=== PATIENT | female | born 1950 | race Caucasian/White ===

== ENCOUNTER 2025-02-10 11:03 | Outpatient (AMB) | payer MEDICARE, SELFPAY ==
[2025-02-10 11:16] VITALS: BP 120/80; PULSE 97; RESP 16; O2SAT 93; BMI 46.6
--- NOTE | 2025-02-10 11:16 | A.OFFVIS_ITS ---
Vital Signs 02/10/25 11:16 Height 5 ft 3 in Weight 263 lb BMI 46.6 BP 120/80 Blood Pressure Location Lt radial Position Sitting Respiration 16 Pulse 97 Pulse Source Pulse Oximeter Pulse Oximetry (%) 93 Oxygen Delivery Method Room Air Intake Visit Reasons: Rt knee pain radiating up to lower back Customer Support Associate Required: No Allergies epinephrine Allergy (Severe, Verified 02/10/25 11:19) Anaphylaxis bisacodyl [From Bisa-Lax (bisacodyl)] Adverse Reaction (Severe, Verified 02/10/25 11:19) cramps Medication List - Last Reconciled 02/10/25 by Josie Ibarra LPN alprazolam 0.5 mg PO TID cholecalciferol (vitamin D3) 1,250 mcg PO QWEEK gabapentin 100 mg PO .4x daily semaglutide (Rybelsus) 1.5 mg PO DAILY tranylcypromine (Parnate) 30 mg PO BID vitamins A,C,F-npax-bezmis 4,296 mcg-226 mg-90 mg (PreserVision AREDS) 1 cap PO BID HPI HPI Rt knee pain radiating up to lower back: Details: History of Present Illness The patient is a 74-year-old female presenting with pain management issues. 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 Subsequently, chronic pain ensued and spread from her right knee down the leg towards the foot. The pain encompassed the entirety of the limb and eventually the opposite side. A neurologist has confirmed nondiagnostic nerve damage in the right leg via EMG studies. The lower back pain began to manifest more prominently within the past year, persisting despite various interventional treatments such as epidural injections targeting the L5 nerve root's suspected compression. The inadequate response to these procedures has contributed to the progressive and debilitating nature of the patient's condition, as it has evolved into globalized pain in the axial low back. Over the years, such chronic pain has drastically diminished the patient's ability to engage in everyday pursuits. Pain Description - Onset and Timing: Began before a 2019 knee replacement; worsened over seven years - Quality and Character: Described as continuous, like a solid block of pain, with numbness and sensitivity - Primary Location: Initially the right knee; extended down the right leg and foot; spread to the right gluteal region and lower back - Areas of Radiation: Progressed across the right side and into the opposite extremity - Exacerbating Factors: Physical activity and leg contact - Relieving Factors: Not clearly verbalized; unresponsive to prior injection t herapies - Interference: Significantly affects daily living, standing, walking, and general mobility Physical Exam - Musculoskeletal- Mild swelling of the right lower extremity and slight purplish discoloration observed; sensitivity to touch present, with numbness and altered sensation in medial condylar region - Neurologic- Anesthesia sensation in medial condylar region; altered sensation across the lower extremities - Limited lumbar ROM Results - Tests and Diagnostics: L5 nerve root compression suspected on MRI; multiple nondiagnostic EMG studies of the right leg Pain Management - Affect: Reports of crying, frustration, and isolation due to continuous pain, impacting daily mood - Analgesia: Prior interventions ineffective; no current successful analgesia regimen noted - Adverse Effects: Previous injection therapies were ineffective; current medications or side effects not detailed - Activities of Daily Living: Severely impacted; patient unable to walk properly, engage with friends, or partake in previous activities - Aberrant Drug Related Behaviors: Not specified in this encounter Physical Exam Vital Signs: Last Vital Signs Pulse 97 02/10/25 11:16 Resp 16 02/10/25 11:16 BP 120/80 02/10/25 11:16 Pulse Ox 93 02/10/25 11:16 Oxygen Delivery Method Room Air 02/10/25 11:16 BMI result Body Mass Index 46.6 Assessment & Plan Assessment & Plan (1) Lumbar spondylosis: Code(s): M47.816 - Spondylosis without myelopathy or radiculopathy, lumbar region Category: Medical (2) CRPS (complex regional pain syndrome type I): Code(s): G90.50 - Complex regional pain syndrome I, unspecified Category: Medical Plan Plan - Arrange L3, L4, L5 medial branch diagnostic blocks bilaterally, targeting the back pain associated with lumbar spondylosis. - Upon positive response to dianostic blocks, plan for radiofrequency ablation. - Potential discussion of lumbar sympathetic block contingent upon evaluation outcomes and insurance approval. - Seek insurance clearance for the diagnostic interventions discussed. - Reassess efficacy of nerve blocks prior to moving forward with other potential treatments. Patient was informed and verbally consented to the use of an ambient scribe for clinic note documentation during this visit. Discussion Notes I discussed in detail with the patient the likelihood of lumbar spondylosis and potential lumbar root involvement as contributing factors to the chronic pain experienced. We reviewed diagnostic options including the first- and second- round test injections, followed by radiofrequency ablation, which may alleviate axial lumbar pain. I stressed that no definitive treatment has been established and that these strategies provide potential relief but not a guaranteed solution. Specific risks and benefits were deliberated, with a focus on targeted lumbar neuroanatomy and individualized outcomes. Patient consent was obtained for the initial diagnostic approach, and we outlined potential sequential procedures pending diagnostic outcomes. Emphasis was placed on maintaining communication for insurance process completion and any subsequent appointments necessary. Patient Instructions - Attend scheduled appointments for test injections on the back. - Monitor pain levels and any changes after injections. - Notify me if pain persists beyond a reasonable time frame or worsens. - Avoid activities that exacerbate pain. - Stay in contact regarding insurance authorization status. - Ensure all updates on treatment side effects or unexpected issues are reported immediately. Coding Level of Care Code Est Pt Level 3 (86501) Diagnoses Lumbar spondylosis M47.816 CRPS (complex regional pain syndrome type I) G90.50
--- OUTSIDE RECORDS SUMMARY | 2025-02-10 11:50 | XMS_ITS | Clinical Summary ---
Author Organization [facility] Address [address] [id number] Care Team Providers Care Process Manufacturing Engineer Name Role Phone Deneen Wheatley MD Primary Care Provider [phone] Allergies Active Allergy Reactions Criticality Noted Date Comments Bisacodyl Flushing High 01/30/2019 Severe diaphorsis and weakness Doxycycline Hyclate Nausea And Vomiting Medium 019 Epinephrine Anaphylaxis High 12/28/2017 Nickel Unknown Medium 09/12/2018 Omeprazole Nausea And Vomiting Medium 01/30/2019 Medications ALPRAZolam (XANAX) 0.5 mg tablet Take 0.5 mg by mouth 3 times a day. 2 Active gabapentin (NEURONTIN) 100 mg capsule PLEASE SEE ATTACHED FOR DETAILED DIRECTIONS 2 Active ibuprofen (MOTRIN) 200 mg tablet Take 400 mg by mouth every 6 hours as needed. Active tranylcypromine (PARNATE) 10 mg tablet Take 30 mg by mouth 2 times a day. 2 Active vitamins A,C,E-zinc-francisco er 14,320-226-200 huji-gw-lhbe capsule Take 1 capsule by mouth. Active Family History Medical History Relation Name Comments Pneumonia Father COPD Mother Relation Name Status Comments Father Mother Social History Tobacco Use Types Packs/Day Years Used Date Smoking Tobacco: Former Cigarettes Q uit: 1987 Smokeless Tobacco: Never Alcohol Use Standard Drinks/Week Comments Never 0 (1 standard drink = 0.6 oz pur e alcohol) Comments Unknown Sex and Gender Information Value Date Recorded Sex Assigned at Not on file Legal Sex Female 3:30 PM EDT Gender Identity Not on file Sexual Orientation Not on file Last Filed Vital Signs Vital Sign Reading Time Taken Comments Blood Pressure - - Pulse - - Temperature - - Respiratory Rate - - Oxygen Saturation - - Inhaled Oxygen Concentration - - Weight 106.1 kg (233 lb 12.8 oz) 2021 10:24 AM EDT Height 160 cm (5' 3 ) 04/11/2022 10:24 AM EDT Body Mass Index 41.42 04/11/2022 10:24 AM EDT Plan of Treatment Health Maintenance Due Date Last Done Comments Cologuard 1950 Colon Cancer Screening 1950 Colonoscopy 1950 FOBT / Fit Test 1950 Hepatitis C Screening 1950 Sigmoidoscopy 1951 Mammogram 1991 Osteoporosis Screening 2001 Zoster Vaccines (1 of 2) 2001 RSV Vaccine (60+ years old a nd patients) (1 - Risk 60-74 years 1-dose series) 2011 Pneumococcal Vaccine: 50+ Years (2 of 2 - PPSV23) 09/28/2018 09/28/2017 COVID-19 Vaccine (4 - 2023-2 5 season) 2024 10/23/2021, 04/06/2021, 03/09/2021 Alcohol/Substance Use Screening 10/02/2024 Depression Screening and Follow-Up 10/02/2024 Health Care Proxy Review 10/02/2024 Social Drivers of Health Annual Screening 10/02/2024 Influenza Vaccine (Season Ended) 2025 DTaP,Tdap,and Td Vaccines (3 - Td or Tdap) 08/22/2027 08/22/2017, 04/09/2010 Hepatitis B Vaccines Aged Out No long er eligible based on patient's age to complete this topic Insurance [facility] MCR REPLACE PPO Care Teams Process Manufacturing Engineer Relationship Specialty Start Date End Date Deneen Wheatley MD [address] [place] [id number] PCP - General 03/14/22
--- OUTSIDE RECORDS SUMMARY | 2025-02-10 11:50 | XMS_ITS | Encounter Summary ---
Author Organization [facility], Address [address] [place] [address] Phone Care Team Providers Care Coat Joiner Name Role Phone Deneen Wheatley DO Primary Care Provider [phone] Encounter Details Date Type Department Care Team (Late st Contact Info) Description 11/01/2024 Documentation Only [facility] [address] [place] [address] Deandra Beckett [address] [place] [phone] Social History Tobacco Use Types Packs/Day Years Used Date Smoking Tobacco: Former Cigarettes Smokeless Tobacco: Never Comments Unknown Sex and Gender Information Value Date Recorded Sex Assigned at Not on file Legal Sex Female 9:34 AM EST Gender Identity Not on file Sexual Orientation Not on file documented as of this encounter Plan of Treatment Upcoming Encounters Date Type Department Care Team (Late st Contact Info) Description 05/02/2025 10:45 AM EDT Office Visit [facility] [address] [place] [phone] Austen Raza MD [address] [place] [address] [place] [address] documented as of this encounter Visit Diagnoses Not on filedocumented in this encounter Care Teams Coat Joiner Relationship Specialty Start Date End Date Deneen Wheatley DO [address] [place], [place] [phone] PCP - General Family Medicine 09/17/24 documented as of this encounter
--- OUTSIDE RECORDS SUMMARY | 2025-02-10 11:50 | XMS_ITS | Encounter Summary ---
Author Organization [facility] [place], Address [address] [place] [address] Phone Care Team Providers Care Regional Trainer Name Role Phone Deneen Wheatley DO Primary Care Provider [phone] Encounter Details Date Type Department Care Team (Late st Contact Info) Description 11/01/2024 Documentation Only [facility] [address] [place] [address] Deandra Beckett [address] [place] [phone] Social History Tobacco Use Types Packs/Day Years [...] Visit [facility] [address] [place] [phone] Austen Raza MD [address] [place] [address] [place] [address] documented as of this encounter Visit Diagnoses Not on filedocumented in this encounter Care Teams Regional Trainer Relationship Specialty Start Date End Date Deneen Wheatley DO [address] [place], [place] [phone] PCP - General Family Medicine 09/17/24 documented as of this encounter
--- OUTSIDE RECORDS SUMMARY | 2025-02-10 11:50 | XMS_ITS | Encounter Summary ---
Author Organization [facility], Address [address] [place] [address] Phone Care Team Providers Care Screwdown Operator Name Role Phone Deneen Wheatley DO Primary Care Provider [phone] Encounter Details Date Type Department Care Team (Late st Contact Info) Description 11/01/2024 Documentation Only [facility] [address] [place] [address] Deandra Beckett [address] [place] [phone] Social History Tobacco Use Types Packs/Day Years [...] Visit [facility] [address] [place] [phone] Austen Raza MD [address] [place] [address] [place] [address] documented as of this encounter Visit Diagnoses Not on filedocumented in this encounter Care Teams Screwdown Operator Relationship Specialty Start Date End Date Deneen Wheatley DO [address] [place], [place] [phone] PCP - General Family Medicine 09/17/24 documented as of this encounter
--- OUTSIDE RECORDS SUMMARY | 2025-02-10 11:50 | XMS_ITS | Encounter Summary ---
Author Organization [facility], Address [address] [place] [address] Phone Care Team Providers Care Mica Washer Gluer Name Role Phone Deneen Wheatley DO Primary Care Provider [phone] Encounter Details Date Type Department Care Team (Late st Contact Info) Description 11/01/2024 Documentation Only [facility] [address] [place] [address] Deandra Beckett [address] [place] [phone] Social History Tobacco Use Types Packs/Day Years [...] Visit [facility] [address] [place] [phone] Austen Raza MD [address] [place] [address] [place] [address] documented as of this encounter Visit Diagnoses Not on filedocumented in this encounter Care Teams Mica Washer Gluer Relationship Specialty Start Date End Date Deneen Wheatley DO [address] [place], [place] [phone] PCP - General Family Medicine 09/17/24 documented as of this encounter
--- OUTSIDE RECORDS SUMMARY | 2025-02-10 11:50 | XMS_ITS | Encounter Summary ---
Author Organization [facility], Address [address] [place] [address] Phone Care Team Providers Care Artist'S Manager Name Role Phone Deneen Wheatley DO Primary Care Provider [phone] Encounter Details Date Type Department Care Team (Late st Contact Info) Description 11/01/2024 Documentation Only [facility] [address] [place] [address] Deandra Beckett [address] [place] [phone] Social History Tobacco Use Types Packs/Day Years [...] Visit [facility] [address] [place] [phone] Austen Raza MD [address] [place] [address] [place] [address] documented as of this encounter Visit Diagnoses Not on filedocumented in this encounter Care Teams Artist'S Manager Relationship Specialty Start Date End Date Deneen Wheatley DO [address] [place], [place] [phone] PCP - General Family Medicine 09/17/24 documented as of this encounter
--- OUTSIDE RECORDS SUMMARY | 2025-02-10 11:50 | XMS_ITS | Clinical Summary ---
Author Organization [facility] Address [address] [place] [address] Phone Care Team Providers Care Project Architect Name Role Phone WheatleyDeneen kemp Primary Care Provider [phone] Allergies Active Allergy Reactions Criticality Noted Date Comments Amoxicillin-Pot Clavulanate Vomiting High 11/01/19 Bisacodyl High 11/01/2024 Doxycycline Nausea 11/01/2024 Epinephrine Anaphylaxis High 11/01/2024 Nickel 11/01/2024 Omeprazole 11/01/2024 Medications albuterol HFA (PROVENTIL HFA;VENTOLIN HFA) 108 (90 Base) MCG/ACT inhaler Inhale 2 puffs every 6 (six) hours if needed for wheezing Active ALPRAZolam (XANAX) 0.5 MG tablet Take 0.5 mg by mouth in the morning and 0.5 mg at noon and 0.5 mg in the evening. Active ergocalciferol 1.25 MG (42747 UT) capsule Take 100,000 Units by mouth 1 (one) time per week Active gabapentin (NEURONTIN) 300 MG capsule Take 600 mg by mouth in the morning and 600 mg in the evening and 600 mg before bedtime. Active tranylcypromine (PARNATE) 10 MG tablet Take 30 mg by mouth in the morning and 30 mg in the evening. Active Active Problems Problem Noted Date Diagnosed Date Stage 3a chronic kidney disease 11/01/2024 Renal osteodystrophy 11/01/2024 Alkaline phosphatase above reference range Cyst of kidney Elevated erythrocyte sedimentation rate Hypothyroidism Impaired fasting glycemia Nephrolithiasis Secondary hyperparathyroidism Vitamin D deficiency Family History Medical History Relation Comments Congenital heart disease Brother Alcohol abuse Father Heart disease Maternal Grandmother COPD Mother Osteoarthritis Mother Osteoporosis Mother Dementia Mother's Sister Relation Status Comments Brother Father Maternal Grandmother Mother Mother's Sister Social History Tobacco Use Types Packs/Day Years Used Date Smoking Tobacco: Former Cigarettes Smokeless Tobacco: Never Comments Unknown Sex and Gender Information Value Date Recorded Sex Assigned at Not on file Legal Sex Female 9:34 AM EST Gender Identity Not on file Sexual Orientation Not on file Plan of Treatment Upcoming Encounters Date Type Department Care Team (Late st Contact Info) Description 05/02/2025 10:45 AM EDT Office Visit [facility] [place], - [address] [place] [address] Austen Raza MD [address] [facility] [place] [phone] Health Maintenance Due Date Last Done Comments Breast Cancer Screening 1951 Pneumococcal Vaccine: 50+ Years (1 of 2 - PCV) 970 Colorectal Cancer Screening: Annual FOBT 2000 Colorectal Cancer Screening: Colonoscopy 2000 Colorectal Cancer Screening: Sigmoidoscopy 2000 Hepatitis B Vaccine (1 of 3 - Risk 3-dose series) 04/02 Influenza Vaccine (Season Ended) 2025 Insurance [facility] Care Teams Project Architect Relationship Specialty Start Date End Date Deneen Wheatley DO [address] [place] [address] PCP - General Family Medicine 09/17/24
--- OUTSIDE RECORDS SUMMARY | 2025-02-10 11:50 | XMS_ITS | Encounter Summary ---
Author Organization [facility] [place], Address [address] [place] [address] Phone Care Team Providers Care Sports Coordinator Name Role Phone Deneen Wheatley DO Primary Care Provider [phone] Encounter Details Date Type Department Care Team (Late st Contact Info) Description 11/01/2024 Documentation Only [facility] [address] [place] [address] Deandra Beckett [address] [place] [phone] Social History Tobacco Use Types Packs/Day Years [...] Visit [facility] [address] [place] [phone] Austen Raza MD [address] [place] [address] [place] [address] documented as of this encounter Visit Diagnoses Not on filedocumented in this encounter Care Teams Sports Coordinator Relationship Specialty Start Date End Date Deneen Wheatley DO [address] [place], [place] [phone] PCP - General Family Medicine 09/17/24 documented as of this encounter
--- OUTSIDE RECORDS SUMMARY | 2025-02-10 11:50 | XMS_ITS | Encounter Summary ---
Author Organization [facility] [place], Address [address] [place] [address] Phone Care Team Providers Care Hand Frame Surgical Elastic Knitter Name Role Phone Deneen Wheatley DO Primary Care Provider [phone] Encounter Details Date Type Department Care Team (Late st Contact Info) Description 11/01/2024 Documentation Only [facility] [address] [place] [address] Deandra Beckett [address] [place] [phone] Social History Tobacco Use Types Packs/Day Years [...] Visit [facility] [address] [place] [phone] Austen Raza MD [address] [place] [address] [place] [address] documented as of this encounter Visit Diagnoses Not on filedocumented in this encounter Care Teams Hand Frame Surgical Elastic Knitter Relationship Specialty Start Date End Date Deneen Wheatley DO [address] [place], [place] [phone] PCP - General Family Medicine 09/17/24 documented as of this encounter
--- OUTSIDE RECORDS SUMMARY | 2025-02-10 11:50 | XMS_ITS | Encounter Summary ---
Author Organization [facility] [place], Address [address] [place] [address] Phone Care Team Providers Care Insurance Verification Representative Name Role Phone Deneen Wheatley DO Primary Care Provider [phone] Encounter Details Date Type Department Care Team (Late st Contact Info) Description 11/01/2024 Documentation Only [facility] [address] [place] [address] Deandra Beckett [address] [place] [phone] Social History Tobacco Use Types Packs/Day Years [...] Visit [facility] [address] [place] [phone] Austen Raza MD [address] [place] [address] [place] [address] documented as of this encounter Visit Diagnoses Not on filedocumented in this encounter Care Teams Insurance Verification Representative Relationship Specialty Start Date End Date Deneen Wheatley DO [address] [place], [place] [phone] PCP - General Family Medicine 09/17/24 documented as of this encounter
--- OUTSIDE RECORDS SUMMARY | 2025-02-10 11:50 | XMS_ITS | Referral Summary ---
Author Organization [facility] Address [address] [id number] Care Team Providers Care Divider Operator Name Role Phone Deneen Wheatley MD Primary Care Provider [phone] Allergies Active Allergy Reactions Criticality Noted Date [...] day. 2 Active vitamins A,C,E-zinc-francisco er 14,320-226-200 duda-jd-mgzo capsule Take 1 capsule by mouth. Active Social History Tobacco Use Types Packs/Day Years [...] 04/11/2022 10:24 AM EDT Plan of Treatment Not on file Insurance [employer] MCR REPLACE PPO Care Teams Divider Operator Relationship Specialty Start Date End Date Deneen Wheatley MD [address] [place] [phone] PCP - General 03/14/22
--- OUTSIDE RECORDS SUMMARY | 2025-02-10 11:50 | XMS_ITS | Encounter Summary ---
Author Organization [facility], Address [address] [place] [address] Phone Care Team Providers Care Digital Media Manager Name Role Phone Deneen Wheatley DO Primary Care Provider [phone] Encounter Details Date Type Department Care Team (Late st Contact Info) Description 09/17/2024 Documentation Only [facility] [address] [place] [address] Dieudonne [place], [place] [address] [place] [phone] Social History Tobacco Use Types Packs/Day Years Used Date Smoking Tobacco: Never Assessed Comments Unknown Sex and Gender Information Value Date Recorded Sex Assigned at Not on file Legal Sex Female 9:34 AM EST Gender Identity Not on file Sexual Orientation Not on file documented as of this encounter Plan of Treatment Upcoming Encounters Date Type Department Care Team (Late st Contact Info) Description 05/02/2025 10:45 AM EDT Office Visit [facility] [address] Jackie [address] [place] [phone] Austen Raza MD [address] [place] [address] [place] [address] documented as of this encounter Visit Diagnoses Not on filedocumented in this encounter Care Teams Digital Media Manager Relationship Specialty Start Date End Date Deneen Wheatley DO [address] [place], [place] [phone] PCP - General Family Medicine 09/17/24 documented as of this encounter
--- OUTSIDE RECORDS SUMMARY | 2025-02-10 11:50 | XMS_ITS | Encounter Summary ---
Author Organization [facility] [place], Address [address] [place] [address] Phone Care Team Providers Care Upholstery Technician Name Role Phone Deneen Wheatley DO Primary Care Provider Encounter Details Date Type Department Care Team (Late st Contact Info) Description 11/01/2024 Documentation Only [facility] [address] [place] [address] Deandra Beckett [address] [place] [phone] Social History Tobacco Use Types Packs/Day Years [...] Visit [facility] [address] Jackie [address] [place] [phone] Austen Raza MD [address] [place] [address] [place] [address] documented as of this encounter Visit Diagnoses Not on filedocumented in this encounter Care Teams Upholstery Technician Relationship Specialty Start Date End Date Deneen Wheatley DO [address] [place], [place] [phone] PCP - General Family Medicine 09/17/24 documented as of this encounter
--- OUTSIDE RECORDS SUMMARY | 2025-02-10 11:50 | XMS_ITS | Encounter Summary ---
Author Organization [facility] [place], Address [address] [place] [address] Phone Care Team Providers Care Automatic Lehr Operator Name Role Phone Deneen Wheatley DO Primary Care Provider [phone] Encounter Details Date Type Department Care Team (Late st Contact Info) Description 11/01/2024 Documentation Only [facility] [address] [place] [address] Deandra Beckett [address] [place] [phone] Social History Tobacco Use Types Packs/Day Years [...] Visit [facility] [address] Jackie [address] [place] [phone] Austen Raza MD [address] [place] [address] [place] [address] documented as of this encounter Visit Diagnoses Not on filedocumented in this encounter Care Teams Automatic Lehr Operator Relationship Specialty Start Date End Date Deneen Wheatley DO [address] [place], [place] [phone] PCP - General Family Medicine 09/17/24 documented as of this encounter
--- OUTSIDE RECORDS SUMMARY | 2025-02-10 11:50 | XMS_ITS | Encounter Summary ---
Author Organization [facility] [place], Address [address] [place] [address] Phone Care Team Providers Care Nurse Special Name Role Phone Deneen Wheatley DO Primary Care Provider [phone] Encounter Details Date Type Department Care Team (Late st Contact Info) Description 11/01/2024 Documentation Only [facility] [address] [place] [address] Deandra Beckett [address] [place] [phone] Social History Tobacco Use Types Packs/Day Years [...] Visit [facility] [address] Jackie [address] [place] [phone] Austen Raza MD [address] [place] [address] [place] [address] documented as of this encounter Visit Diagnoses Not on filedocumented in this encounter Care Teams Nurse Special Relationship Specialty Start Date End Date Deneen Wheatley DO [address] [place], [place] [phone] PCP - General Family Medicine 09/17/24 documented as of this encounter
--- OUTSIDE RECORDS SUMMARY | 2025-02-10 11:50 | XMS_ITS | Encounter Summary ---
Author Organization [facility] [place], Address [address] [place] [address] Phone Care Team Providers Care Tow Car Driver Name Role Phone Deneen Wheatley DO Primary Care Provider [phone] Encounter Details Date Type Department Care Team (Late st Contact Info) Description 11/01/2024 Documentation Only [facility] [address] [place] [address] Deandra Beckett [address] [place] [phone] Social History Tobacco Use Types Packs/Day Years [...] Visit [facility] [address] Jackie [address] [place] [phone] Austen Raza MD [address] [place] [address] [place] [address] documented as of this encounter Visit Diagnoses Not on filedocumented in this encounter Care Teams Tow Car Driver Relationship Specialty Start Date End Date Deneen Wheatley DO [address] [place], [place] [phone] PCP - General Family Medicine 09/17/24 documented as of this encounter
--- OUTSIDE RECORDS SUMMARY | 2025-02-10 11:50 | XMS_ITS | Encounter Summary ---
Author Organization [facility] [place], Address [address] [place] [address] Phone Care Team Providers Care Tableau Administrator Name Role Phone Deneen Wheatley DO Primary Care Provider [phone] Encounter Details Date Type Department Care Team (Late st Contact Info) Description 11/01/2024 Documentation Only [facility] [address] [place] [address] Deandra Beckett [address] [place] [phone] Social History Tobacco Use Types Packs/Day Years [...] Visit [facility] [address] Jackie [address] [place] [phone] Austen Raza MD [address] [place] [address] [place] [address] documented as of this encounter Visit Diagnoses Not on filedocumented in this encounter Care Teams Tableau Administrator Relationship Specialty Start Date End Date Deneen Wheatley DO [address] [place], [place] [phone] PCP - General Family Medicine 09/17/24 documented as of this encounter
== END 2025-02-10 12:10 | disposition home or self-care (01) ==
LOC: HO.PMC 11:04
PROVIDERS: Visit Provider Internal Medicine
DX: M47.816 Spondylosis without myelopathy or radiculopathy, lumbar region (principal); G90.50 Complex regional pain syndrome I, unspecified
CPT/HCPCS: 99213

== ENCOUNTER → 2025-02-10 11:03 | Outpatient (BNVA) | payer MEDICARE, SELFPAY | PROVIDERS: Visit Provider Internal Medicine | DX: M47.816 Spondylosis without myelopathy or radiculopathy, lumbar region (principal); G90.50 Complex regional pain syndrome I, unspecified | CPT/HCPCS: 99212 ==

== ENCOUNTER 2025-04-02 10:59 | Outpatient (AMB) | payer MEDICARE, SELFPAY ==
[2025-04-02 11:03] VITALS: BP 144/81; PULSE 86; RESP 16; O2SAT 93; BMI 45.9
--- NOTE | 2025-04-02 11:03 | A.OFFVIS_ITS ---
Vital Signs 04/02/25 11:03 Height 5 ft 3 in Weight 259 lb BMI 45.9 BP 144/81 H Blood Pressure Location Lt brachial Position Sitting Respiration 16 Pulse 86 Pulse Source Pulse Oximeter Pulse Oximetry (%) 93 Oxygen Delivery Method Room Air Intake Visit Reasons: follow up injection discussion Research And Development Researcher Required: No Allergies epinephrine Allergy (Severe, Verified 04/02/25 11:04) Anaphylaxis bisacodyl (From Bisa-Lax (bisacodyl)) Adverse Reaction (Severe, Verified 04/02/25 11:04) cramps Medication List - Last Reconciled 04/02/25 by Josie Ibarra LPN alprazolam 0.5 mg PO TID cholecalciferol (vitamin D3) 1,250 mcg PO QWEEK gabapentin 100 mg PO .4x daily semaglutide (Rybelsus) 1.5 mg PO DAILY tranylcypromine (Parnate) 30 mg PO BID vitamins A,C,J-drmx-ianwsb 4,296 mcg-226 mg-90 mg (PreserVision AREDS) 1 cap PO BID HPI HPI follow up injection discussion: Details: History of Present Illness The patient is a 74-year-old female presenting with management of chronic low back pain. She reports worsening symptoms, including numbness in the arms, attributed to carpal tunnel syndrome, and pain radiating from the lower back down the leg to the foot. She has a history of diabetes mellitus, with a recent HbA1c of 6.9, and is currently on Rybelsus for management. The patient describes her pain as severe and debilitating, impacting her daily activities and causing significant distress. She has experienced nausea and vomiting, which she suspects may be related to her medication. The patient has undergone multiple MRIs, with findings of nerve involvement on the left side, but no definitive diagnosis has been provided over the years. She has a history of avascular necrosis, which necessitated previous surgical intervention, and she expresses regret over the procedure due to its impact on her quality of life. The patient is also experiencing symptoms of peripheral neuropathy, with numbness extending to the toes, and questions whether this is related to her diabetes. Pain Description - Onset: Pain has been present for several years, worsening over time. - Quality: Described as severe and debilitating. - Location: Radiates from lower back down the leg to the foot. - Exacerbating Factors: Movement and certain positions worsen the pain. - Relieving Factors: No specific relieving factors mentioned. - Impact: Significantly affects daily activities and quality of life. Physical Exam - Pain predominantly in the axial lower back. Physical Exam Vital Signs: Last Vital Signs Pulse 86 04/02/25 11:03 Resp 16 04/02/25 11:03 BP 144/81 H 04/02/25 11:03 Pulse Ox 93 04/02/25 11:03 Oxygen Delivery Method Room Air 04/02/25 11:03 BMI result Body Mass Index 45.9 Assessment & Plan Assessment & Plan (1) Lumbar spondylosis: Code(s): M47.816 - Spondylosis without myelopathy or radiculopathy, lumbar region Category: Medical Plan Plan - Proceed with diagnostic L3, L4, L5 medial branch nerve branch blocks followed by potential radiofrequency ablation for chronic axial low back pain. - Request authorization from insurance for the procedure and schedule once approved. - Discussed the importance of not canceling the procedure again to avoid future complications with approval. Patient was informed and verbally consented to the use of an ambient scribe for clinic note documentation during this visit. Discussion Notes I had an extensive discussion with the patient regarding the details, risks, and benefits of diagnostic nerve branch blocks followed by potential radiofrequency ablation for chronic low back pain. The patient has decided to proceed with the procedure once again, and we will request authorization from her insurance and schedule it once we get approval. I informed the patient that if she cancels the procedure again or decides not to do it, we will not be able to proceed in the future due to the complexity of obtaining approval. Patient Instructions - Proceed with the scheduled procedure once insurance approval is obtained. - Avoid canceling the procedure to prevent complications with future approvals. Coding Level of Care Code Est Pt Level 3 (59179) Diagnoses Lumbar spondylosis M47.816
--- OUTSIDE RECORDS SUMMARY | 2025-04-02 11:43 | XMS_ITS | Clinical Summary ---
Author Organization [facility] [place], Address [address] [place] [address] Phone Care Team Providers Care Dental Equipment Technician Name Role Phone WheatleyDeneen kemp Primary Care Provider [phone] Allergies Active Allergy Reactions Criticality Noted Date [...] in the evening. Active ergocalciferol 1.25 MG (13038 UT) capsule Take 100,000 Units by mouth [...] Visit [facility] [place], - [address] [place] [address] Austen Raza MD [address] [facility] [place] [phone] Health Maintenance Due Date Last Done Comments Breast Cancer Screening 1950 Pneumococcal Vaccine: 50+ Years (1 of 2 - PCV) 970 Colorectal Cancer Screening: Annual FOBT 2000 Colorectal Cancer Screening: Colonoscopy 2000 Colorectal Cancer Screening: Sigmoidoscopy 2000 Hepatitis B Vaccine (1 of 3 - Risk 3-dose series) 04/02 Influenza Vaccine (#1) 2025 Insurance [facility] Care Teams Dental Equipment Technician Relationship Specialty Start Date End Date Deneen Wheatley DO [address] [place] [phone] PCP - General Family Medicine 09/17/24
--- OUTSIDE RECORDS SUMMARY | 2025-04-02 11:43 | XMS_ITS | Referral Summary ---
Author Organization [facility] Address [address] [phone] Care Team Providers Care Double Needle Operator Name Role Phone Deneen Wheatley MD Primary Care Provider [phone] Allergies Active Allergy Reactions Criticality Noted Date [...] day. 2 Active vitamins A,C,E-zinc-francisco er 14,320-226-200 jujk-tg-gxpr capsule Take 1 capsule by mouth. Active [...] Insurance [employer]BS [employer]PL[employer] PPO Care Teams Double Needle Operator Relationship Specialty Start Date End Date Deneen Wheatley MD [address] [place] [address] PCP - General 03/14/22
== END 2025-04-02 11:24 | disposition home or self-care (01) ==
LOC: HO.PMC 10:59
PROVIDERS: Visit Provider Internal Medicine
DX: M47.816 Spondylosis without myelopathy or radiculopathy, lumbar region (principal)
CPT/HCPCS: 99213

== ENCOUNTER → 2025-04-02 10:59 | Outpatient (BNVA) | payer MEDICARE, SELFPAY | PROVIDERS: Visit Provider Internal Medicine | DX: M47.816 Spondylosis without myelopathy or radiculopathy, lumbar region (principal) | CPT/HCPCS: 99212 ==

== ENCOUNTER 2025-05-01 06:22 | Outpatient (REF) | payer MEDICARE, SELFPAY ==
--- NOTE | ~2025-05-01 | FL_ITS ---
EXAMINATION: XR FLUOROSCOPY WITH IMAGES CLINICAL INFORMATION: Lumbar pain management. COMPARISON: None available. TECHNIQUE: Fluoroscopy provided to: Dr. Bailey Fluoroscopy time: 0.2 minutes DAP: 0.122 mGycm2 Images: 2 FINDINGS: 2 fluoroscopic spot images of the lumbar spine during pain management injections. Please refer to the full procedural report for details. FL/FL guidance in treatment room IMPRESSION: Fluoroscopic guidance. Electronically signed by: Arnaldo Solares MD 05/01/2025 01:11 PM EDT
--- OUTSIDE RECORDS SUMMARY | 2025-05-01 06:25 | XMS_ITS | Clinical Summary ---
Author Organization [facility] [place], Address [address] [place] [address] Phone Care Team Providers Care Hide Cleaner Name Role Phone WheatleyDeneen kemp Primary Care Provider [phone] Allergies Active Allergy Reactions Criticality Noted Date [...] in the evening. Active ergocalciferol 1.25 MG (79055 UT) capsule Take 100,000 Units by mouth [...] Visit [facility] [place], - [address] [place] [address] Austen Raza MD [address] [facility] [place] [phone] Health Maintenance Due Date Last Done Comments Breast Cancer Screening 1950 Pneumococcal Vaccine: 50+ Years (1 of 2 - PCV) 970 Colorectal Cancer Screening: Annual FOBT 2000 Colorectal Cancer Screening: Colonoscopy 2000 Colorectal Cancer Screening: Sigmoidoscopy 2000 Hepatitis B Vaccine (1 of 3 - Risk 3-dose series) 04/02 Influenza Vaccine (#1) 2025 Insurance [facility] Care Teams Hide Cleaner Relationship Specialty Start Date End Date Deneen Wheatley DO [address] [place] [address] PCP - General Family Medicine 09/17/24
--- OUTSIDE RECORDS SUMMARY | 2025-05-01 06:25 | XMS_ITS | Referral Summary ---
Author Organization [facility] Address [address] [phone] Care Team Providers Care Laboratory Coordinator Name Role Phone Deneen Wheatley MD Primary Care Provider [phone] Allergies Active Allergy Reactions Criticality Noted Date [...] day. 2 Active vitamins A,C,E-zinc-francisco er 14,320-226-200 nziq-eg-jhlj capsule Take 1 capsule by mouth. Active [...] Insurance BCBS MCR REPLACE PPO Care Teams Laboratory Coordinator Relationship Specialty Start Date End Date Deneen Wheatley MD [address] [place] [address] PCP - General 03/14/22
--- OUTSIDE RECORDS SUMMARY | 2025-05-01 06:25 | XMS_ITS | Encounter Summary ---
Author Organization [facility] Address [address] [facility] [address] [place] [address] Phone Care Team Providers Care Toilet And Laundry Soap Supervisor Name Role Phone Deneen Wheatley DO Primary Care Provider [phone] Deneen Wheatley DO Primary Care Provider [phone] Encounter Details Date Type Department Care Team (Late st Contact Info) Description 10/22/2021 Procedure Pass [facility], [address] [address] Social History Tobacco Use Types Packs/Day Years Used Date Smoking Tobacco: Former Cigarettes Q uit: 1988 Smokeless Tobacco: Never Alcohol Use Standard Drinks/Week Comments No 0 (1 standard drink = 0.6 oz pur e alcohol) Comments No Sex and Gender Information Value Date Recorded Sex Assigned at Female 10/25/2018 1:50 PM EST Legal Sex Female 6:49 PM EST Gender Identity Female 10/25/2018 1:50 PM EST Sexual Orientation Straight 10/25/2018 1: 50 PM EST documented as of this encounter Plan of Treatment Upcoming Encounters Date Type Department Care Team (Latest Contact Info) Description 07/01/2025 Procedure Pass [facility] Endoscopy Admitting Dept Virtual Department [address] [place] [address] 07/01/2025 9:45 AM EDT Hospital Encounter [facility] Endoscopy Admitting Dept Virtual Department [address] [place] [address] Laci Felix MD [address] [place] [address] 07/01/2025 9:45 AM EDT - 07/01/2025 10:00 AM EDT Surgery [facility] Endoscopy Admitting Dept Virtual Department [address] [place] [address] Laci Felix MD [address] [place] [address] ESOPHAGOGASTRODUODENOSCOPY 10/09/2025 9:40 AM EST Office Visit [facility] Rheumatology [address] [place] [address] Perla Cohn MD, MPH [address] [facility], [facility] [address] [place] [address] [email or web address] Scheduled Procedures Name Priority Associated Diagnoses Date/Ti me ESOPHAGOGASTRODUODENOSCOPY Gastroesophageal reflux disease with esophagitis, unspecified whether hemorrhage Colon cancer screening 07/01/2025 9:45 AM EDT COLONOSCOPY Gastroesophageal reflux disease with esophagitis, unspecified whether hemorrhage Colon cancer screening 07/01/2025 9:45 AM EDT documented as of this encounter Visit Diagnoses Not on filedocumented in this encounter Additional Health Concerns Infection Onset Date Last Indicated Resolved Time CoV-Risk Comment:Per note documentation 03/10/2023 03/10/2023 4:32 PM EDT documented as of this encounter Care Teams Toilet And Laundry Soap Supervisor Relationship Specialty Start Date End Date Deneen Wheatley DO PCP - General Family Medicine 05/04/21 07/25/22 Deneen Wheatley DO [address] [place] [address] PCP - General Family Medicine 07/26/22 documented as of this encounter Additional Source Comments The information contained in this document represents components of the legal health record. It is not the complete legal health record.[facility]
== END 2025-05-01 06:23 | disposition home or self-care (01) ==
LOC: CF 06:22
PROVIDERS: Visit Provider Internal Medicine
DX: M47.816 Spondylosis without myelopathy or radiculopathy, lumbar region (principal); M54.50 Low back pain, unspecified
CPT/HCPCS: 64493; 64494; J2003; J2795; Q9967

== ENCOUNTER 2025-05-01 10:31 | Outpatient (AMB) | payer MEDICARE, SELFPAY ==
[2025-05-01 10:37] VITALS: BP 106/64; PULSE 105; RESP 16; O2SAT 91; BMI 45.9
--- NOTE | 2025-05-01 10:37 | MHC.OFFVIS ---
Vital Signs 05/01/25 10:37 05/01/25 10:56 Height 5 ft 3 in 5 ft 3 in Weight 259 lb 259 lb BMI 45.9 45.9 BP 106/64 116/80 Blood Pressure Location Lt radial Lt radial Position Sitting Sitting Respiration 16 16 Pulse 105 H 100 Pulse Source Pulse Oximeter Pulse Oximeter Pulse Oximetry (%) 91 L 91 L Oxygen Delivery Method Room Air Room Air Intake Visit Reasons: Luis Dx L3-L4-L5 MBB Allergies epinephrine Allergy (Severe, Verified 04/02/25 11:04) Anaphylaxis bisacodyl (From Bisa-Lax (bisacodyl)) Adverse Reaction (Severe, Verified 04/02/25 11:04) cramps HPI HPI Luis Dx L3-L4-L5 MBB: Details: Patient presents for scheduled procedure. Denies any recent cough, cold, infection, fever or other significant changes in medical history since last office visit. Physical Exam Vital Signs: Last Vital Signs Pulse 105 H 05/01/25 10:37 Resp 16 05/01/25 10:37 BP 106/64 05/01/25 10:37 Pulse Ox 91 L 05/01/25 10:37 Oxygen Delivery Method Room Air 05/01/25 10:56 BMI result Body Mass Index 45.9 Office Procedures Details: Lumbar Medial Branch Block, Bilateral L3, L4 medial branches and L5 Dorsal Ramus (2 levels, 3 nerves) After obtaining written consent, pre-procedure blood pressure and pulse were recorded and are in the nursing record for review. The patient was placed in a prone position. The respective lumbosacral area was prepped with chloraprep and draped in sterile fashion. The skin over the target medial branch nerves was anesthetized with 0.5% lidocaine. A 22 gauge 3.5 inch needle was inserted into the target medial branch nerve under fluoroscopic guidance. No paresthesias were elicited with needle placement and aspiration was negative for blood and CSF. Next, 0.2cc of omnipaque 180 was injected to verify positioning in AP and oblique imaging. Next 0.5 ml 0.5% ropivicaine was injected (0.5cc total per level). The identical procedure was performed at the remaining levels. The skin was cleansed and a sterile bandage was applied. Following the procedure the patient's vital signs were stable. The patient tolerated the procedure well and no complications were encountered. Following the procedure the patient's vital signs were stable. The patient was discharged home in good condition with post-procedural instructions. Time Out: Immediately prior to the procedure, the following was verbally confirmed that there is a signed consent form and that the correct patient, planned procedure, site and side are consistent with documentation and that necessary equipment and/or blood products are available prior to the start of the case. Complications: none EBL: <5 cc 41718 - with Fluoroscopy (L3-L4) (bilateral) 86400 - second level with Fluoroscopy (L3-L4-L5) Procedure code (CPT) selection complete Assessment & Plan Assessment & Plan (1) Lumbar spondylosis: Code(s): M47.816 - Spondylosis without myelopathy or radiculopathy, lumbar region Category: Medical Plan Patient is status post bilateral diagnostic lumbar medial branch blocks. Patient tolerated procedure well and was discharged home in stable condition with discharge instructions. All questions were answered. We will follow-up via telephone or in clinic to assess response to therapy. A follow-up appointment was made during today's visit. Orders: Orders FL guidance in treatment room Today Annie Mckee APRN, INSPECTOR INTEGRATED CIRCUITS M47.816 - Spondylosis without myelopathy or radiculopathy, lumbar region AMB Medial Branch Block - Lumbar/Sacral Today Nabil Bailey MD M47.816 - Spondylosis without myelopathy or radiculopathy, lumbar region Coding Level of Care Code Procedure Only Diagnoses Lumbar spondylosis M47.816 CPT Codes Medial Branch Block Lumbar/Sacral1 - Branch Block Lumb/Sac 1: 72029 - with Fluoroscopy (L3-L4) ([id number]) Medial Branch Block Lumbar/Sacral1 - Branch Block Lumb/Sac 2: 23247 - second level with Fluoroscopy (L3-L4-L5) ([id number])
[2025-05-01 10:56] VITALS: BP 116/80; PULSE 100; RESP 16; O2SAT 91; BMI 45.9
== END 2025-05-01 11:01 | disposition home or self-care (01) ==
LOC: HO.PMCPRC 10:31
PROVIDERS: Visit Provider Internal Medicine
DX: M47.816 Spondylosis without myelopathy or radiculopathy, lumbar region (principal)
CPT/HCPCS: 64493; 64494

== ENCOUNTER 2025-05-07 11:00 | Outpatient (AMB) | payer MEDICARE, SELFPAY ==
[2025-05-07 11:17] VITALS: BP 178/77; PULSE 79; RESP 16; O2SAT 93
--- NOTE | 2025-05-07 11:17 | A.OFFVIS_ITS ---
Vital Signs 05/07/25 11:17 Height 5 ft 3 in BP 178/77 H Blood Pressure Location Lt brachial Position Sitting Respiration 16 Pulse 79 Pulse Source Pulse Oximeter Pulse Oximetry (%) 93 Oxygen Delivery Method Room Air Intake Visit Reasons: s/p kasia Dx L3-L4-L5 MBB Allergies epinephrine Allergy (Severe, Verified 05/07/25 11:18) Anaphylaxis bisacodyl (From Bisa-Lax (bisacodyl)) Adverse Reaction (Severe, Verified 03/26 11:18) cramps Medication List - Last Reconciled 05/07/25 by Josie Ibarra LPN alprazolam 0.5 mg PO TID cholecalciferol (vitamin D3) 1,250 mcg PO QWEEK gabapentin 100 mg PO .4x daily semaglutide (Rybelsus) 1.5 mg PO DAILY tranylcypromine (Parnate) 30 mg PO BID vitamins A,C,D-xqmd-grbuah 4,296 mcg-226 mg-90 mg (PreserVision AREDS) 1 cap PO BID HPI HPI s/p kasia Dx L3-L4-L5 MBB: Details: History of Present Illness The patient is a 75-year-old female presenting with persistent pain following medial branch blocks for diagnostic facet injections. The patient reports that the diagnostic injections did not provide any relief, and she experienced severe pain at the injection site, comparable to a dry socket, particularly on the right side. The pain was described as a general numbness without significant relief of the underlying pain. The patient indicates that the pain is widespread, affecting her ability to move and perform certain physical maneuvers, such as lifting her knee to her chest or placing her heel on her knee, which exacerbates her back pain. She also reports tenderness in the sacroiliac joint area, with positive findings on physical examination, including the JM test, compression test, and thrust test. The patient has a history of arthritic changes in the knee, hip, and facet roberta ints, contributing to her current pain syndrome. She acknowledges that her gait has been altered for years, which may contribute to the misalignment and stress on her joints. Pain Description - Onset: Persistent pain following medial branch blocks - Quality: Severe, comparable to a dry socket, with general numbness - Location: Right side, widespread affecting movement - Exacerbating factors: Physical maneuvers such as lifting knee to chest - Relieving factors: None reported Physical Exam - Musculoskeletal: Tenderness over the right sacroiliac joint, positive JM test, positive compression test, positive thrust test Pain Management - Affect: Pain significantly impacts patient's ability to perform daily activities - Analgesia: No relief from previous medial branch blocks - Activities of Daily Living: Pain affects movement and physical maneuvers Physical Exam Vital Signs: Last Vital Signs Pulse 79 05/07/25 11:17 Resp 16 05/07/25 11:17 BP 178/77 H 05/07/25 11:17 Pulse Ox 93 05/07/25 11:17 Oxygen Delivery Method Room Air 05/07/25 11:17 Assessment & Plan Assessment & Plan (1) Sacroiliac joint pain: Code(s): M53.3 - Sacrococcygeal disorders, not elsewhere classified Category: Medical Plan Plan - Proceed with right sacroiliac joint injection as a diagnostic test to assess pain relief. - Consider follow-up with cortisone injection if initial diagnostic injection provides relief. - Discussed trial and error approach to identify the primary source of pain. Patient was informed and verbally consented to the use of an ambient scribe for clinic note documentation during this visit. Discussion Notes I discussed with the patient the plan to proceed with a right sacroiliac joint injection as a diagnostic test to assess pain relief. If the injection provides relief, we will consider a follow-up cortisone injection. I explained the trial and error approach to identify the primary source of pain, emphasizing the inte rconnected nature of joint issues and the need for a systematic approach to treatment. We also discussed the option of follow-up via phone call to assess the effectiveness of the injection. Patient Instructions - Monitor pain relief following the sacroiliac joint injection and report back. - Consider follow-up via phone call to discuss the effectiveness of the injection. Coding Level of Care Code Est Pt Level 3 (00681) Diagnoses Sacroiliac joint pain M53.3
--- OUTSIDE RECORDS SUMMARY | 2025-05-07 11:45 | XMS_ITS | Encounter Summary ---
Author Organization [facility] Address [address] [facility] [address] [place] [address] Phone Care Team Providers Care Sensitizer Name Role Phone Deneen Wheatley DO Primary Care Provider [phone] Deneen Wheatley DO Primary Care Provider [phone] Encounter Details Date Type Department Care Team (Late st Contact Info) Description 10/22/2021 Procedure Pass [facility], [address] [address] Social History Tobacco Use Types Packs/Day Years [...] (Latest Contact Info) Description 07/01/2025 Procedure Pass [facility] Endoscopy Admitting Dept Virtual Department [address] [place] [address] 07/01/2025 9:45 AM EDT Hospital Encounter [facility] Endoscopy Admitting Dept Virtual Department [address] [place] [address] Laci Felix MD [address] [place] [address] 07/01/2025 9:45 AM EDT - 07/01/2025 10:00 AM EDT Surgery [facility] Endoscopy Admitting Dept Virtual Department [address] [place] [address] Laci Felix MD [address] [place] [address] ESOPHAGOGASTRODUODENOSCOPY 10/09/2025 9:40 AM EST Office Visit [facility] Rheumatology [address] [place] [address] Perla Cohn MD, MPH 22 [facility], [facility] [address] [place] [address] [email or web address] Scheduled Procedures Name Priority Associated [...] documented as of this encounter Care Teams Sensitizer Relationship Specialty Start Date End Date Deneen Wheatley DO PCP - General Family Medicine 05/04/21 07/25/22 Deneen Wheatley DO [address] [place] [address] PCP - General Family Medicine 07/26/22 documented as of this encounter Additional Source Comments The information contained in this document represents components of the legal health record. It is not the complete legal health record.[facility]
--- OUTSIDE RECORDS SUMMARY | 2025-05-07 11:45 | XMS_ITS | Clinical Summary ---
Author Organization [facility], Address [address] [place] [phone] Phone Care Team Providers Care Amusement Park Entertainer Name Role Phone WheatleyDeneen kemp Primary Care Provider [phone] Allergies Active Allergy Reactions Criticality Noted Date [...] in the evening. Active ergocalciferol 1.25 MG (80960 UT) capsule Take 100,000 Units by mouth [...] glycemia Nephrolithiasis Secondary hyperparathyroidism Vitamin D deficiency Encounters Date Type Department Care Team Description 05/02/2025 10:45 AM EDT Office Visit [facility], [address] [place] [address] Austen Raza MD Stage 3a chronic kidney disease (HCC) (Primary Dx); Nephrolithiasis; Cyst of kidney 05/02/2025 Documentation Only [facility], [address] [place] [address] Deandra Beckett 05/01/2025 Documentation Only [facility], [place] [address] Maribeth Tyson 05/01/2025 Documentation Only [facility], [place] [phone] Maribeth Tyson 05/01/2025 Documentation Only [facility], [place] [address] Maribeth Tyson from Last 3 Months Family History Medical History Relation Comments Congenital [...] Care Team (Late st Contact Info) Description 05/08/2026 11:15 AM EDT Office Visit [facility], [place] [address] Austen Raza MD [address] [place] [address] [place] [phone] Health Maintenance Due Date Last Done Comments Breast Cancer Screening 1950 Pneumococcal Vaccine: 50+ Years (1 of 2 - PCV) 970 Colorectal Cancer Screening: Annual FOBT 2000 Colorectal Cancer Screening: Colonoscopy 2000 Colorectal Cancer Screening: Sigmoidoscopy 2000 Hepatitis B Vaccine (1 of 3 - Risk 3-dose series) 04/02 Influenza Vaccine (#1) 2025 Insurance [facility] Care Teams Amusement Park Entertainer Relationship Specialty Start Date End Date Deneen Wheatley DO [address] [place] [phone] PCP - General Family Medicine 09/17/24
--- OUTSIDE RECORDS SUMMARY | 2025-05-07 11:45 | XMS_ITS | Referral Summary ---
Author Organization [facility] Address [address] [id number] Care Team Providers Care Rotary Dryer Operator Name Role Phone Deneen Wheatley MD Primary Care Provider [phone] Allergies Active Allergy Reactions Criticality Noted Date [...] day. 2 Active vitamins A,C,E-zinc-francisco er 14,320-226-200 cxht-lt-idsv capsule Take 1 capsule by mouth. Active [...] Insurance [employer] PPO Care Teams Rotary Dryer Operator Relationship Specialty Start Date End Date Deneen Wheatley MD [address] [place] [phone] PCP - General 03/14/22
== END 2025-05-07 11:21 | disposition home or self-care (01) ==
LOC: HO.PMC 11:01
PROVIDERS: Visit Provider Internal Medicine
DX: M53.3 Sacrococcygeal disorders, not elsewhere classified (principal)
CPT/HCPCS: 99213

== ENCOUNTER → 2025-05-07 11:00 | Outpatient (BNVA) | payer MEDICARE, SELFPAY | PROVIDERS: Visit Provider Internal Medicine | DX: M53.3 Sacrococcygeal disorders, not elsewhere classified (principal) | CPT/HCPCS: 99212 ==

== ENCOUNTER 2025-07-24 06:15 | Outpatient (REF) | payer MEDICARE, SELFPAY ==
--- OUTSIDE RECORDS SUMMARY | 2025-07-21 08:10 | XMS_ITS | Encounter Summary ---
Author Organization [facility] Address [address] [place] [address] Phone Care Team Providers Care Truck Trailer Mechanic Name Role Phone Deneen Wheatley Primary Care Provider Encounter Details Date Type Department Care Team (Latest Contact Info) Description 07/21/2025 8:10 AM EDT - 07/21/2025 9:18 AM EDT Hospital Encounter [facility] [address] [place] [address] Michael Marlow MD [address] [place] [address] [email or web address] Arrived Discharge Disposition: Home or Self Care Social History Tobacco Use Types Packs/Day Years Used Date Smoking Tobacco: Former Cigarettes Q uit: 10/02/1987 Passive Smoke Exposure: Past Smokeless Tobacco: Never Alcohol Use Standard Drinks/Week Comments No 0 (1 standard drink = 0.6 oz pur e alcohol) Education Answer Date Recorded Are you interested in more education? Not on leonid e 01/28/2023 Are you concerned about learning? Not on file 01/28/2023 No 01/28/2023 No 01/28/2023 Food Answer Date Recorded Within the past 6 months we worried whether our food would run out before we got money to buy more. Never True 06/19/2025 Within the past 6 months the food we bought just didn't last and we didn't have enough money to get more. Never True Residential Stability Answer Date Recor ded What is your housing situation today? I have roseanna sing 06/19/2025 How many times have you move d in the past 12 months? Zero (I did not move) 06/19/2025 Paying for Meds Answer Date Recorded Do you have trouble paying for medicines? No 06/19/2025 Paying Utility Bills Answer Date Record ed Do you have trouble paying your heating or elect ricity bill? No 06/19/2025 Transportation Answer Date Recorded Has the lack of transportati on kept you from medical appointments or from getting medications? No 06/19/2025 Digital Access Answer Date Recorded No 06/19/2025 Yes 06/19/2025 Do you have reliable internet access at home? Ye s 06/19/2025 Do you have a device (e.g., phone, tablet, computer) with a working camera? Yes 06/19/2025 Intimate Partner Violence Answer Date R ecorded Are you denied basic needs s uch as food, clothing, or medical care? No 07/01/2025 In the past 12 months have y ou been in a relationship with a person who hurts, threatens, or tries to control you? No 07/01/2025 Are you denied basic needs s uch as food, clothing, or medical care? No 07/01/2025 In the past 12 months have y ou been in a relationship with a person who hurts, threatens, or tries to control you? No 07/01/2025 Comments No Sex and Gender Information Value Date Recorded Sex Assigned at Female 10/25/2018 1:50 PM EST Legal Sex Female 6:49 PM EST Gender Identity Female 10/25/2018 1:50 PM EST Sexual Orientation Straight 10/25/2018 1: 50 PM EST documented as of this encounter Medications at Time of Discharge acetaminophen (TYLENOL) [address] rectally 2 (two) times a day (once in the morning and once in the afternoon). 2 pills in the morning and 2 pills at night. Pt stated they don't know the dosage albuterol 90 mcg/actuation inhaler Inhale 2 puffs into the lungs 4 (four) times a day. Not using 08/28/2024 ALPRAZolam (XANAX) 0.5 MG tablet Take 0.5 mg by mouth 3 (three) times a day. ergocalciferol (DRISDOL) 50,000 unit capsule Take 50,000 Units by mouth 2 (two) times a week. 02/23/2024 gabapentin (NEURONTIN) 300 MG capsule 4 (four) times a day. 12/12/2023 ibuprofen (ADVIL,MOTRIN) 200 MG tablet Take 400 mg by mouth every 6 (six) hours as needed for pain (specific location in comments). metFORMIN (GLUCOPHAGE) 500 MG immediate release tablet Take 1 tablet by mouth 2 (two) times a day. 04/17/2025 tranylcypromine (PARNATE) 10 mg tablet 30mg in morning and 30 mg in evening vitamins A,C,R-kvfw-gfzugi (PRESERVISION AREDS) 14,320-226-200 gavm-vz-ekoi Cap Take 1 capsule by mouth 2 (two) times a day with meals. documented as of this encounter Plan of Treatment Upcoming Encounters Date Type Department Care Team (Late st Contact Info) Description 10/03/2025 10:00 AM EST Office Visit [facility] Allergy and Critical Care Medicine [address] [place] [address] Michael Marlow MD [address] [address] [email or web address] 10/09/2025 9:40 AM EST Office Visit [facility] Rheumatology [address] [place] [address] Perla Cohn MD, MPH 22 [facility], [address] [place] [address] 10/22/2025 3:45 PM EST Appointment [facility], Bone Density - [address] [address] Deneen Wheatley DO 70 [place] [address] 11/10/2025 1:15 PM EST Office Visit [facility] Gastroenterology Clinic 10 [place] [address] Unknown, Unknown, Krysten Oliver, FUNERAL HOME ATTENDANT [address] [address] [email or web address] documented as of this encounter Procedures Procedure Name Priority Date/Time Associated Diagnosis Comments PULMONARY FUNCTION TEST Routine 07/21/2025 9:19 AM EDT Interstitial lung disease documented in this encounter Results * Pulmonary Function Test Reason for Exam: Asthma, Interstitial Lung Disease; Type of PFT Test: Spirometry with bronchodilator, DLCO, Lung Volumes; Performing Location: [facility] (07/21/2025 9:19 AM EDT) FEV1 1.73 liters FVC 2.21 liters FEV1/FVC 79 % TLC 3.99 liters DLCO 12.62 ml/mmHg sec Anatomical Region Laterality Modality Other Impressions 07/21/2025 9:19 AM EDT PULMONARY FUNCTION STUDIES Full pulmonary function studies were performed on this 75 y.o. year-old female for evaluation of interstitial lung disease. Review of the medical record reveals that the patient is a past smoker. Prior pulmonary function studies from 07/23/2024 are available for comparison. SPIROMETRY: The FEV1 is normal at 1.73 L or 88% predicted. The FVC is normal at 2.21 L or 86% predicted. The FEV1/FVC ratio is normal at 79%. FLOW-VOLUME LOOPS: Evaluation of the flow-volume loops reveals normal morphology of both the inspiratory and expiratory limbs. LUNG VOLUME MEASUREMENTS BY PLETHYSMOGRAPHY: The total lung capacity is normal at 3.99 L or 84% predicted. The RV/TLC ratio is normal at 28%. DIFFUSION CAPACITY: The diffusion capacity is mildly impaired (z-score between - 1.65 and -2.5) at 12.6 mL/mmHg sec or 69% predicted. COMPARISON TO PRIOR STUDIES: When comparing to prior studies, there has been no significant change. Resting oxygen saturation is 92% on room air. IMPRESSION: Abnormal pulmonary function studies as evidenced by an isolated mild impairment in diffusion capacity which, in this clinical context, may be secondary to emphysema, pulmonary vascular disease, interstitial lung disease and/or anemia. Lung volumes are normal. Spirometry reveals no evidence of airflow limitation. Technical Note: As of 08/13/2024, the [facility] Pulmonary Function Testing (PFT) Laboratory transitioned from using race-specific to using race-neutral equations for determining lung function predicted values for all persons. Due to this change some individuals previously classified as either normal or abnormal may now change from one to the other category without a true change in lung function. Such changes, as well as changes in severity classification, should be considered broadly and in their clinical context. Absolute values of lung function are unaffected. For further questions please contact the interpreting physician or PFT clinical laboratory service teacher. For further discussion of this issue please see Iwona et al [facility] 2022;207(8):978. Please Note: Not all PFT labs within, or outside of, our system will be transitioning to new reference equations at the same time. For this reason, please pay close attention to absolute values when comparing results done at different testing locations within or outside of our system. us Michael Marlow MD PFT ORDERABLES Final Result documented in this encounter Visit Diagnoses Diagnosis Interstitial lung disease Postinflammatory pulmonary fibrosis documented in this encounter Care Teams Truck Trailer Mechanic Relationship Specialty Start Date End Date Deneen Wheatley DO [address] [place] [address] [email or web address] PCP - General Family Medicine 07/26/22 documented as of this encounter Additional Source Comments The information contained in this document represents components of the legal health record. It is not the complete legal health record.[facility]
--- OUTSIDE RECORDS SUMMARY | 2025-07-21 09:19 | XMS_ITS | Encounter Summary ---
Author Organization [facility] Address [address] [place] [address] Phone Care Team Providers Care Flatbed Driver Name Role Phone Deneen Wheatley DO Primary Care Provider [phone] Reason for Referral * MRI/CAT Scan - Closed Specialty Diagnoses / Procedures Referred By Monty t Referred To Contact Radiology Diagnoses Interstitial lung disease Procedures CT Chest CHG DIAGNOSTIC COMPUTED TOMOGRAPHY THORAX W/O CNTRST CHG DIAGNOSTIC COMPUTED TOMOGRAPHY THORAX W/CONTRAST CHG DIAGNOSTIC COMPUTED TOMOGRAPHY THORAX C-/C+ Michael Marlow MD Phone: tel: fax: [email or web address] Referral ID Status Reason Start Date Expiration Date Visits Re quested Visits Authorized [id number] Closed 06/20/2025 09/17/2025 1 1 Reason for Visit * MRI/CAT Scan - Closed Specialty Diagnoses / Procedures Referred By Contac t Referred To Contact Radiology Diagnoses Interstitial lung disease Procedures CT Chest CHG DIAGNOSTIC COMPUTED TOMOGRAPHY THORAX W/O CNTRST CHG DIAGNOSTIC COMPUTED TOMOGRAPHY THORAX W/CONTRAST CHG DIAGNOSTIC COMPUTED TOMOGRAPHY THORAX C-/C+ Michael Marlow MD Phone: tel: fax: [email or web address] Referral ID Status Reason Start Date Expiration Date Visits Re quested Visits Authorized [id number] Closed 06/20/2025 09/17/2025 1 1 Encounter Details Date Type Department Care Team (Latest Contact Info) Description 07/21/2025 9:19 AM EDT - 07/21/2025 11:59 PM EDT Hospital Encounter [facility], Ct Scan - [address] [address] Michael Marlow MD [address] [place] [address] [email or web address] Arrived Discharge Disposition: Home or Self Care [...] morning and 30 mg in evening vitamins A,C,U-zwdm-csjoby (PRESERVISION AREDS) 14,320-226-200 kmgx-iy-pucj Cap Take 1 capsule by mouth 2 (two) times a day with meals. documented as of this encounter Plan of Treatment Upcoming Encounters Date Type Department Care Team (Late st Contact Info) Description 10/03/2025 10:00 AM EST Office Visit [facility] Pulmonary, Allergy and Critical Care Medicine 10 [facility] [place] [address] Michael Marlow MD [address] [address] [email or web address] 10/09/2025 9:40 AM EST Office Visit [facility] Rheumatology 22 [place] [address] Perla Cohn MD, MPH 22 [facility], [address] [address] 10/22/2025 3:45 PM EST Appointment [facility], Bone Density - [address] [address] Deneen Wheatley DO 70 [place] [address] 11/10/2025 1:15 PM EST Office Visit [facility] Gastroenterology Clinic 10 [place] [address] Unknown, Unknown, Krysten Oliver, STATE AUDITOR 10 [facility] 2 [place] [address] [email or web address] [email or web address] Results Name Type Priority Associated Diagnoses Date /Time CT Chest Imaging Routine Interstitial lung disease 07/21/2025 9:35 AM EDT Scheduled Orders Name Type Priority Associated Diagnoses Orde r Schedule CT Chest Imaging Routine Interstitial lung disease As Needed for 1 Occurrences starting 07/21/2025 until 07/21/2025 documented as of this encounter Visit Diagnoses Diagnosis Interstitial lung disease Postinflammatory pulmonary fibrosis documented in this encounter Care Teams Flatbed Driver Relationship Specialty Start Date End Date Deneen Wheatley DO [address] [place] [address] PCP - General Family Medicine 07/26/22 documented as of this encounter Additional Source Comments The information contained in this document represents components of the legal health record. It is not the complete legal health record.[facility]
--- NOTE | ~2025-07-24 | FL_ITS ---
EXAMINATION: FL GUIDANCE ONLY HISTORY: M53.3 - Sacrococcygeal disorders, not elsewhere classified COMPARISON: None available. TECHNIQUE: Fluoroscopy time: 0.2 minutes. Cumulative Dose: 4.50 mGy. DAP: 52.95 uGym2 Images: 4. FINDINGS: Fluoroscopic spot films of the right hemipelvis demonstrate a needle in the region of the sacroiliac joint. FL/FL guidance in treatment room IMPRESSION: Fluoroscopy during procedure. Please see procedure report for additional information. Electronically signed by: Rex Anderson MD 07/24/2025 03:17 PM EDT
--- OUTSIDE RECORDS SUMMARY | 2025-07-24 06:17 | XMS_ITS | Encounter Summary ---
Author Organization [facility] Address [address] [place] [address] Phone Care Team Providers Care Wastewater Treatment Plant Supervisor Name Role Phone Deneen Wheatley DO Primary Care Provider [phone] Deneen Wheatley DO Primary Care Provider Encounter Details Date Type Department Care Team (Late Contact Info) Description 05/10/2021 Procedure Pass [facility], [address] [address] Social History Tobacco Use Types Packs/Day Years [...] Encounters Date Type Department Care Team (Late Contact Info) Description 10/03/2025 10:00 AM EST Office Visit [facility] Pulmonary, Allergy and Critical Care Medicine 10 [facility] [place] [address] Michael Marlow MD 10 [facility] 2nd [place] [address] [email or web address] 10/09/2025 9:40 AM EST Office Visit [facility] Rheumatology 22 [place] [address] Perla Cohn MD, MPH 22 [facility], [address] [place] [address] 10/22/2025 3:45 PM EST Appointment [facility], Bone Density - [facility] 30 [place] [address] Deneen Wheatley DO 70 [place] [address] 11/10/2025 1:15 PM EST Office Visit [facility] Gastroenterology Clinic 10 [place] [address] Unknown, Unknown, MD Alba, Krysten Queen, CLINICAL DOCUMENTATION CLERK [address] [address] [email or web address] documented as of this encounter Visit Diagnoses Not on filedocumented in this encounter Additional Health Concerns Infection Onset Date Last Indicated Resolved Time CoV-Risk Comment:Per note documentation 03/10/2023 03/10/2023 4:32 PM EDT documented as of this encounter Care Teams Wastewater Treatment Plant Supervisor Relationship Specialty Start Date End Date Deneen Wheatley DO PCP - General Family Medicine 05/04/21 07/25/22 Deneen Wheatley DO [address] [place] [address] [email or web address] PCP - General Family Medicine 07/26/22 documented as of this encounter Additional Source Comments The information contained in this document represents components of the legal health record. It is not the complete legal health record.[facility]
--- OUTSIDE RECORDS SUMMARY | 2025-07-24 06:17 | XMS_ITS | Encounter Summary ---
Author Organization [facility] Address [address] [place] [address] Phone Care Team Providers Care Ship Self Defense System Mk1 Operator Name Role Phone Blue Rojo MD Primary Care Provider Deneen Wheatley DO Primary Care Provider Deneen Wheatley DO Primary Care Provider Encounter Details Date Type Department Care Team (Late st Contact Info) Description 11/30/2018 Procedure Pass [facility], [address] [address] Social History Tobacco Use Types Packs/Day Years [...] Pulmonary, Allergy and Critical Care Medicine 10 [facility] [place] [address] Michael Marlow MD 10 [facility] 2nd [place] [address] [email or web address] 10/09/2025 9:40 AM EST Office Visit [facility] Rheumatology 22 [place] [address] Perla Cohn MD, MPH 22 [facility] 203 [place] [address] 10/22/2025 3:45 PM EST Appointment [facility], Bone Density - [facility] 30 [place] [address] Deneen Wheatley DO 70 [place] [address] 11/10/2025 1:15 PM EST Office Visit [facility] Gastroenterology Clinic 10 [place] [address] Unknown, Unknown, Krysten Oliver, DEPUTY SHERIFF BAILIFF [address] [address] [email or web address] documented as of this encounter Visit Diagnoses Not on filedocumented in this encounter Additional Health Concerns Infection Onset Date Last Indicated Resolved Time CoV-Risk 06/11/2020 06/12/2020 06/25/2020 1:23 AM EDT CoV-Risk Comment:Per note documentation 03/10/2023 03/10/2023 4:32 PM EDT documented as of this encounter Care Teams Ship Self Defense System Mk1 Operator Relationship Specialty Start Date End Date Blue Rojo MD [email or web address] PCP - General 07/20/17 05/03/21 Deneen Wheatley DO PCP - General Family Medicine 05/04/21 07/25/22 Deneen Wheatley DO [address] [place] [address] PCP - General Family Medicine 07/26/22 documented as of this encounter Additional Source Comments The information contained in this document represents components of the legal health record. It is not the complete legal health record.[facility]
--- OUTSIDE RECORDS SUMMARY | 2025-07-24 06:17 | XMS_ITS | Encounter Summary ---
Author Organization [facility] Address [address] [place] [address] Phone Care Team Providers Care Truck Cleaner Name Role Phone Deneen Wheatley DO Primary Care Provider Deneen Wheatley DO Primary Care Provider [phone] Encounter Details Date Type Department Care Team (Late Contact Info) Description 07/21/2022 Procedure Pass [facility] 30 [place] [address] Social History Tobacco Use Types Packs/Day Years Used Date Smoking Tobacco: Former Cigarettes Q uit: 10/02/1987 Smokeless Tobacco: Never Alcohol Use Standard Drinks/Week [...] Pulmonary, Allergy and Critical Care Medicine 10 [facility] [place] [address] Michael Marlow MD 10 [facility] 2nd [place] [address] [email or web address] 10/09/2025 9:40 AM EST Office Visit [facility] Rheumatology 22 [place] [address] Perla Cohn MD, MPH 22 [facility], [address] [place] [address] 10/22/2025 3:45 PM EST Appointment [facility], Bone Density - [facility] 30 [place] [address] Deneen Wheatley DO 70 [place] [address] 11/10/2025 1:15 PM EST Office Visit [facility] Gastroenterology Clinic 10 [place] [address] Unknown, Unknown, MD Alba, Krysten Queen, CHEMICAL COMPOUNDER [address] [address] [email or web address] documented as of this encounter Visit Diagnoses Not on filedocumented in this encounter Additional Health Concerns Infection Onset Date Last Indicated Resolved Time CoV-Risk Comment:Per note documentation 03/10/2023 03/10/2023 4:32 PM EDT documented as of this encounter Care Teams Truck Cleaner Relationship Specialty Start Date End Date Deneen Wheatley DO PCP - General Family Medicine 05/04/21 07/25/22 Deneen Wheatley DO [address] [place] [address] [email or web address] PCP - General Family Medicine 07/26/22 documented as of this encounter Additional Source Comments The information contained in this document represents components of the legal health record. It is not the complete legal health record.[facility]
--- OUTSIDE RECORDS SUMMARY | 2025-07-24 06:17 | XMS_ITS | Encounter Summary ---
Author Organization [facility] Address [address] [place] [address] Phone Care Team Providers Care Flatwork Tier Name Role Phone Deneen Wheatley DO Primary Care Provider [phone] Deneen Wheatley DO Primary Care Provider [phone] Reason for Referral * MRI/CAT Scan - Closed Specialty Diagnoses / Procedures Referred By Monty hernandez Referred To Contact Radiology Diagnoses Sensorineural hearing loss, bilateral Tinnitus, bilateral Dizziness and giddiness Procedures MRI Brain CHG MRI BRAIN COMBO CHG MRI BRAIN CHG MRI BRAIN CONTRAST Ernie Lira MD Phone: tel: fax: [email or web address] Referral ID Status Reason Start Date Expiration Date Visits Re quested Visits Authorized [id number] Closed 10/22/2021 12/20/2021 1 1 Encounter Details Date Type Department Care Team (Latest Contact Info) Description 10/22/2021 Transcribe Orders Virtual Department 30 [place] [address] Ernie Lira MD [address], [address] [place] [address] Sensorineural hearing loss, bilateral (Primary Dx); Tinnitus, bilateral; Dizziness and giddiness Social History Tobacco Use Types Packs/Day Years [...] Pulmonary, Allergy and Critical Care Medicine 10 [facility] [place] [address] Michael Marlow MD [address] [address] [email or web address] 10/09/2025 9:40 AM EST Office Visit [facility] Rheumatology [address] [place] [address] Perla Cohn MD, MPH 22 [facility], [address] [place] [address] 10/22/2025 3:45 PM EST Appointment [facility], Bone Density - [facility] 30 [place] [address] Deneen Wheatley DO 70 [place] [address] [email or web address] 11/10/2025 1:15 PM EST Office Visit [facility] Gastroenterology Clinic 10 [place] [address] Unknown, Unknown, Krysten Oliver, FARM MARKETER 10 [facility] 2 [place] [address] [email or web address] documented as of this encounter Results * MRI BRAIN WITH AND WITHOUT CONTRAST (11/06/2021 11:53 AM EST) Anatomical Region Laterality Modality Head Magnetic Resonan ce 11/06/2021 2:19 PM EST Impressions 11/06/2021 2:27 PM EST Normal MRI of the brain without and with contrast. No IAC lesion or other source of hearing loss/tinnitus. POS [id number] Narrative 11/06/2021 2:27 PM EST TECHNIQUE: 1.5 Marcia scanner. Imaging without and with IV contrast (IAC protocol). Compare to CT 05/07/2015 FINDINGS: No evidence of an IAC or CP angle mass on either side. The visualized proximal cranial nerves are normal in appearance. No signal changes or enhancement suggestive of ischemia, infarct, hemorrhage, mass, demyelinating disease or an inflammatory process. Normal ventricular size and configuration. Basilar cisterns widely patent. No signs of elevated intracranial pressure or cerebellar tonsillar ectopia No pituitary, pineal region or intraorbital pathology. Bilateral lens implants. Mild to moderate generalized atrophy is age-appropriate. Normal flow-voids are present in the major vessels of the [place] and the dural venous sinuses. No inflammatory changes in the paranasal sinuses or mastoid air cells. Procedure Note Tomasz Landin MD - 11/06/2021 TECHNIQUE: 1.5 Marcia scanner. Imaging without and with IV contrast (IACprotocol). Compare to CT 05/07/2015 FINDINGS: No evidence of an IAC or CP angle mass on either side. The visualizedproximal cranial nerves are normal in appearance. No signal changes or enhancement suggestive of ischemia, infarct,hemorrhage, mass, demyelinating disease or an inflammatory process. Normal ventricular size and configuration. Basilar cisterns widely patent.No signs of elevated intracranial pressure or cerebellar tonsillarectopia No pituitary, pineal region or intraorbital pathology. Bilateral lensimplants. Mild to moderate generalized atrophy is age-appropriate. Normal flow-voids are present in the major vessels of the [place] the dural venous sinuses. No inflammatory changes in the paranasal sinuses or mastoid air cells. IMPRESSION: Normal MRI of the brain without and with contrast. No IAC lesion or othersource of hearing loss/tinnitus. POS [id number] Ernie Lira MD IMG MR HEAD/NECK Final Resul t documented in this encounter Visit Diagnoses Diagnosis Sensorineural hearing loss, bilateral- Primary Tinnitus, bilateral Unspecified tinnitus Dizziness and giddiness Sensorineural hearing loss, bilateral Tinnitus, bilateral Unspecified tinnitus Dizziness and giddiness documented in this encounter Additional Health Concerns Infection Onset Date Last Indicated Resolved Time CoV-Risk Comment:Per note documentation 03/10/2023 03/10/2023 3 4:32 PM EDT documented as of this encounter Care Teams Flatwork Tier Relationship Specialty Start Date End Date Deneen Wheatley DO PCP - General Family Medicine 05/04/21 07/25/22 Deneen Wheatley DO [address] [place] [address] PCP - General Family Medicine 07/26/22 documented as of this encounter Additional Source Comments The information contained in this document represents components of the legal health record. It is not the complete legal health record.[facility]
--- OUTSIDE RECORDS SUMMARY | 2025-07-24 06:17 | XMS_ITS | Encounter Summary ---
Author Organization [facility] Address [address] [place] [address] Phone Care Team Providers Care Security Director Name Role Phone Deneen Wheatley DO Primary Care Provider Deneen Wheatley DO Primary Care Provider Encounter Details Date Type Department Care Team (Late Contact Info) Description 04/19/2022 Procedure Pass [facility], [address] [address] Social History Tobacco Use Types Packs/Day Years [...] Pulmonary, Allergy and Critical Care Medicine 10 [facility] [place] [address] Michael Marlow MD 10 [facility] 2nd [place] [address] [email or web address] 10/09/2025 9:40 AM EST Office Visit [facility] Rheumatology 22 [place] [address] Perla Cohn MD, MPH 22 [facility], [address] [place] [address] 10/22/2025 3:45 PM EST Appointment [facility], Bone Density - [facility] 30 [place] [address] Deneen Wheatley DO 70 [place] [address] 11/10/2025 1:15 PM EST Office Visit [facility] Gastroenterology Clinic 10 [place] [address] Unknown, Unknown, MD Alba, Krysten Queen, TELEPHONE MESSENGER [address] [address] [email or web address] documented as of this encounter Visit Diagnoses Not on filedocumented in this encounter Additional Health Concerns Infection Onset Date Last Indicated Resolved Time CoV-Risk Comment:Per note documentation 03/10/2023 03/10/2023 4:32 PM EDT documented as of this encounter Care Teams Security Director Relationship Specialty Start Date End Date Deneen Wheatley DO PCP - General Family Medicine 05/04/21 07/25/22 Deneen Wheatley DO [address] [place] [address] [email or web address] PCP - General Family Medicine 07/26/22 documented as of this encounter Additional Source Comments The information contained in this document represents components of the legal health record. It is not the complete legal health record.[facility]
--- OUTSIDE RECORDS SUMMARY | 2025-07-24 06:17 | XMS_ITS | Encounter Summary ---
Author Organization [facility] Address [address] [place] [address] Phone Care Team Providers Care Contact Finger Assembler Name Role Phone Deneen Wheatley DO Primary Care Provider Deneen Wheatley DO Primary Care Provider Encounter Details Date Type Department Care Team (Late Contact Info) Description 10/22/2021 Procedure Pass [facility], [address] [address] Social History Tobacco Use Types Packs/Day Years [...] Pulmonary, Allergy and Critical Care Medicine 10 [facility] [place] [address] Michael Marlow MD 10 [facility] 2nd [place] [address] [email or web address] 10/09/2025 9:40 AM EST Office Visit [facility] Rheumatology 22 [place] [address] Perla Cohn MD, MPH 22 [facility], [address] [place] [address] 10/22/2025 3:45 PM EST Appointment [facility], Bone Density - [facility] 30 [place] [address] Deneen Wheatley DO 70 [place] [address] 11/10/2025 1:15 PM EST Office Visit [facility] Gastroenterology Clinic 10 [place] [address] Unknown, Unknown, MD Alba, Krysten Queen, PNEUMATIC SYSTEMS OPERATOR [address] [address] [email or web address] documented as of this encounter Visit Diagnoses Not on filedocumented in this encounter Additional Health Concerns Infection Onset Date Last Indicated Resolved Time CoV-Risk Comment:Per note documentation 03/10/2023 03/10/2023 4:32 PM EDT documented as of this encounter Care Teams Contact Finger Assembler Relationship Specialty Start Date End Date Deneen Wheatley DO PCP - General Family Medicine 05/04/21 07/25/22 Deneen Wheatley DO [address] [place] [address] PCP - General Family Medicine 07/26/22 documented as of this encounter Additional Source Comments The information contained in this document represents components of the legal health record. It is not the complete legal health record.[facility]
--- OUTSIDE RECORDS SUMMARY | 2025-07-24 06:17 | XMS_ITS | Encounter Summary ---
Author Organization [facility] Address [address] [place] [address] Phone Care Team Providers Care Margarine Maker Name Role Phone Deneen Wheatley DO Primary Care Provider Deneen Wheatley DO Primary Care Provider Encounter Details Date Type Department Care Team (Late st Contact Info) Description 07/18/2022 Procedure Pass [facility], [address] [address] Social History Tobacco Use Types Packs/Day Years [...] [facility] [place] [address] Michael Marlow MD 10 [facility] 2nd [place] [address] [email or web address] 10/09/2025 9:40 AM EST Office Visit [facility] Rheumatology 22 [place] [address] Perla Cohn MD, MPH 22 [facility], [address] [place] [address] 10/22/2025 3:45 PM EST Appointment [facility], Bone Density - [facility] 30 [place] [address] Deneen Wheatley DO 70 [place] [address] 11/10/2025 1:15 PM EST Office Visit [facility] Gastroenterology Clinic 10 [place] [address] Unknown, Unknown, Krysten Oliver, HOT ROLL INSPECTOR [address] [address] [email or web address] documented as of this encounter Visit Diagnoses Not on filedocumented in this encounter Additional Health Concerns Infection Onset Date Last Indicated Resolved Time CoV-Risk Comment:Per note documentation 03/10/2023 03/10/2023 3 4:32 PM EDT documented as of this encounter Care Teams Margarine Maker Relationship Specialty Start Date End Date Deneen Wheatley DO PCP - General Family Medicine 8/3/21 10/24/22 Deneen Wheatley DO [address] [place] [address] PCP - General Family Medicine 07/26/22 documented as of this encounter Additional Source Comments The information contained in this document represents components of the legal health record. It is not the complete legal health record.[facility]
--- OUTSIDE RECORDS SUMMARY | 2025-07-24 06:17 | XMS_ITS | Encounter Summary ---
Author Organization [facility] Address [address] [place] [address] Phone Care Team Providers Care Galvanometer Assembler Name Role Phone Deneen Wheatley Primary Care Provider Encounter Details Date Type Department Care Team (Late Contact Info) Description 08/05/2022 Procedure Pass [facility] 30 [place] [address] Social History Tobacco Use Types Packs/Day Years [...] Pulmonary, Allergy and Critical Care Medicine 10 [facility] [place] [address] Michael Marlow MD 10 [facility] 2nd [place] [address] [email or web address] 10/09/2025 9:40 AM EST Office Visit [facility] Rheumatology 22 [place] [address] Perla Cohn MD, MPH 22 [facility], [address] [place] [address] [email or web address] 10/22/2025 3:45 PM EST Appointment [facility], Bone Density [address] [address] Deneen Wheatley DO 70 [place] [address] 11/10/2025 1:15 PM EST Office Visit [facility] Gastroenterology Clinic 10 [place] [address] Unknown, Unknown, MD Alba, Krysten Queen, FAMILY PARTNER [address] [address] [email or web address] documented as of this encounter Visit Diagnoses Not on filedocumented in this encounter Additional Health Concerns Infection Onset Date Last Indicated Resolved Time CoV-Risk Comment:Per note documentation 03/10/2023 03/10/2023 4:32 PM EDT documented as of this encounter Care Teams Galvanometer Assembler Relationship Specialty Start Date End Date Deneen Wheatley DO 70 [place] [address] PCP - General Family Medicine 07/26/22 documented as of this encounter Additional Source Comments The information contained in this document represents components of the legal health record. It is not the complete legal health record.[facility]
--- OUTSIDE RECORDS SUMMARY | 2025-07-24 06:18 | XMS_ITS | Encounter Summary ---
Author Organization [facility] Address [address] [place] [address] Phone Care Team Providers Care Coding Advisor Name Role Phone Deneen Wheatley DO Primary Care Provider [phone] Reason for Referral * MRI/CAT Scan - Closed Specialty Diagnoses / Procedures Referred By Monty hernandez Referred To Contact Radiology Diagnoses Liver disease, unspecified Procedures CT Abdomen/Pelvis CHG CT SCAN,ABDOMENT AND PELVIS,W CONTRAST CHG CT SCAN,ABDOMENT AND PELVIS,COMBO CHG CT SCAN,ABDOMENT AND PELVIS,W/O CONTRAST Deneen Wheatley DO [address] [place] [address] Phone: tel: fax: mailto: Referral ID Status Reason Start Date Expiration Date Visits Re quested Visits Authorized [id number] Closed 06/14/2024 08/12/2024 1 1 Encounter Details Date Type Department Care Team (Latest Contact Info) Description 06/14/2024 Transcribe Orders Virtual Department 30 [place] [address] Deneen Wheatley DO [address] [place] [address] [email or web address] Liver disease, unspecified (Primary Dx) Social History Tobacco Use Types Packs/Day Years Used Date Smoking Tobacco: Former Cigarettes Q uit: 10/02/1987 Smokeless Tobacco: Never Alcohol Use Standard Drinks/Week Comments No 0 (1 standard drink = 0.6 oz pur e alcohol) Education Answer Date Recorded Are you interested in more education? Not on leonid e 01/28/2023 Are you concerned about learning? Not on file 01/28/2023 No 01/28/2023 No 01/28/2023 Digital Access Answer Date Recorded No 02/26/2023 No 02/26/2023 Reliable internet access at home? Not on file 02/26/2023 Device with a working camera? Not on file Comments No Sex and Gender Information Value [...] Pulmonary, Allergy and Critical Care Medicine 10 [facility] [place] [address] [place] [address] Michael Marlow MD 10 [facility] 2nd [place] [address] [email or web address] 10/09/2025 9:40 AM EST Office Visit [facility] Rheumatology 22 [place] [address] Perla Cohn MD, MPH 22 [facility], [address] [place] [address] 10/22/2025 3:45 PM EST Appointment [facility], Bone Density - [facility] 30 [place] [address] Deneen Wheatley, [address] [place] [address] 11/10/2025 1:15 PM EST Office Visit [facility] Gastroenterology Clinic 10 [place] [address] Unknown, Unknown, Krysten Oliver, SPEECH PATHOLOGY ASSISTANT [address] [id number] [email or web address] documented as of this encounter Results * CT ABDOMEN/PELVIS WITHOUT CONTRAST (07/31/2024 2:52 PM EDT) Anatomical Region Laterality Modality Abdomen, Pelvis Computed Tomogra phy 08/02/2024 4:37 PM EDT Impressions 08/02/2024 4:43 PM EDT 1. Subcentimeter hypoattenuating lesion within segment 6, not significantly changed when compared to 2021 and statistically representing a cyst. This corresponds to the T2 hyperintense lesion seen on lumbar spine MRI. 2. Punctate bilateral nonobstructing renal calculi. Narrative 08/02/2024 4:[address] ABDOMEN/PELVIS WITHOUT CONTRAST Referring clinician's provided indication for this examination in Epic: Outside Radiology Order; liver lesion TECHNIQUE: Multidetector-row CT of the abdomen and pelvis was performed without intravenous contrast using tailored dose modulation techniques. Images were reconstructed in the axial, coronal, and sagittal planes. COMPARISON: 09/20/2022 ABSENCE OF INTRAVENOUS CONTRAST DECREASES SENSITIVITY FOR DETECTION OF FOCAL LESIONS AND VASCULAR PATHOLOGY. FINDINGS: Lower Chest: No consolidation or pleural effusions. Subpleural reticular opacities, favored to represent early interstitial lung changes. Liver: 8 mm hypoattenuating focus within segment 6 (series 3, image 32), not significantly changed, too small to accurately characterize and statistically representing a cyst. Biliary: The gallbladder is surgically absent. No biliary ductal dilation. Spleen: No splenomegaly. Punctate calcific focus in the lateral spleen, with no suspicious focal lesions. Pancreas: No main pancreatic ductal dilation or peripancreatic inflammatory change. Adrenal Glands: No nodules. Kidneys/Ureters: No right-sided hydronephrosis. Punctate nonobstructing right lower pole calculus. No contour deforming mass lesion. Possible 2 mm calcification the right distal ureter (series 4, image 837). No left-sided hydronephrosis. There is a 2 mm calcification in the left mid kidney (series 4, image 423). Subcentimeter hypoattenuating focus in the left lower renal pole, too small to accurately characterize and statistically a cyst. This is not significantly changed when compared to prior study. Bowel: There is no evidence of intestinal obstruction. Segments of the colon are collapsed and suboptimally assessed. There is colonic diverticulosis. No evidence of diverticulitis. The appendix is visualized and is normal. Peritoneum/Retroperitoneum: No masses, pneumoperitoneum, or fluid. Lymph Nodes: Scattered abdominopelvic lymph nodes which do not meet pathologic criteria by size within limitations of unenhanced technique. Pelvic Organs/Bladder: No mass. Vessels: Moderate calcification of the thoracic aorta. Please note, patency cannot be assessed without intravenous contrast.. No abdominal aortic aneurysm. Bones/Soft Tissues: Heterogeneous osseous demineralization with dextroconvex curvature of the upper lumbar spine. Multilevel degenerative changes of the thoracolumbar spine. Degenerative changes of the hips and symphysis pubis. No destructive bony lytic or blastic lesions. Small fat-containing periumbilical hernia. Procedure Note Mansi Jones MD - 08/02/2024 CT ABDOMEN/PELVIS WITHOUT CONTRAST Referring clinician's provided indication for this examination in Epic:Outside Radiology Order; liver lesion TECHNIQUE: Multidetector-row CT of the abdomen and pelvis was performedwithout intravenous contrast using tailored dose modulation techniques.Images were reconstructed in the axial, coronal, and sagittal planes. COMPARISON: 09/20/2022 ABSENCE OF INTRAVENOUS CONTRAST DECREASES SENSITIVITY FOR DETECTION OFFOCAL LESIONS AND VASCULAR PATHOLOGY. FINDINGS: Lower Chest: No consolidation or pleural effusions. Subpleural reticularopacities, favored to represent early interstitial lung changes. Liver: 8 mm hypoattenuating focus within segment 6 (series 3, image 32),not significantly changed, too small to accurately characterize andstatistically representing a cyst. Biliary: The gallbladder is surgically absent. No biliary ductaldilation. Spleen: No splenomegaly. Punctate calcific focus in the lateral spleen,with no suspicious focal lesions. Pancreas: No main pancreatic ductal dilation or peripancreaticinflammatory change. Adrenal Glands: No nodules. Kidneys/Ureters: No right-sided hydronephrosis. Punctate nonobstructingright lower pole calculus. No contour deforming mass lesion. Possible 2 mmcalcification the right distal ureter (series 4, image 837). No left-sided hydronephrosis. There is a 2 mm calcification in the leftmid kidney (series 4, image 423). Subcentimeter hypoattenuating focus inthe left lower renal pole, too small to accurately characterize andstatistically a cyst. This is not significantly changed when compared toprior study. Bowel: There is no evidence of intestinal obstruction. Segments of thecolon are collapsed and suboptimally assessed. There is colonicdiverticulosis. No evidence of diverticulitis. The appendix is visualizedand is normal. Peritoneum/Retroperitoneum: No masses, pneumoperitoneum, or fluid. Lymph Nodes: Scattered abdominopelvic lymph nodes which do not meetpathologic criteria by size within limitations of unenhanced technique. Pelvic Organs/Bladder: No mass. Vessels: Moderate calcification of the thoracic aorta. Please note,patency cannot be assessed without intravenous contrast.. No abdominalaortic aneurysm. Bones/Soft Tissues: Heterogeneous osseous demineralization withdextroconvex curvature of the upper lumbar spine. Multilevel degenerativechanges of the thoracolumbar spine. Degenerative changes of the hips andsymphysis pubis. No destructive bony lytic or blastic lesions. Smallfat-containing periumbilical hernia. IMPRESSION: 1. Subcentimeter hypoattenuating lesion within segment 6, notsignificantly changed when compared to 2021 and statistically representinga cyst. This corresponds to the T2 hyperintense lesion seen on lumbarspine MRI. 2. Punctate bilateral nonobstructing renal calculi. Deneen Wheatley DO IMG CT ABD/PELVIS Final Resu lt documented in this encounter Visit Diagnoses Diagnosis Liver disease, unspecified- Primary Liver disease, unspecified documented in this encounter Care Teams Coding Advisor Relationship Specialty Start Date End Date Deneen Wheatley DO [address] [place] [address] PCP - General Family Medicine 07/26/22 documented as of this encounter Additional Source Comments The information contained in this document represents components of the legal health record. It is not the complete legal health record.[facility]
--- OUTSIDE RECORDS SUMMARY | 2025-07-24 06:18 | XMS_ITS | Encounter Summary ---
Author Organization [facility] Address [address] [place] [address] Phone Care Team Providers Care Precision Lens Polisher Name Role Phone Deneen Wheatley DO Primary Care Provider Reason for Referral * MRI/CAT Scan - Closed Specialty Diagnoses / Procedures Referred By Monty hernandez Referred To Contact Radiology Diagnoses Chest pain, unspecified type Wheezing Procedures CT Chest CT Chest CHG DIAGNOSTIC COMPUTED TOMOGRAPHY THORAX W/CONTRAST CHG DIAGNOSTIC COMPUTED TOMOGRAPHY THORAX W/O CNTRST CHG DIAGNOSTIC COMPUTED TOMOGRAPHY THORAX C-/C+ Delilah Blackman PA-C Phone: tel: fax: [email or web address] Referral ID Status Reason Start Date Expiration Date Visits Re quested Visits Authorized [id number] Closed 10/17/2023 12/15/2023 1 1 Encounter Details Date Type Department Care Team ([facility] st Contact Info) Description 10/17/2023 Ancillary Orders Virtual Department 30 [place] [address] Delilah Blackman PA-C [address], [address]. [address] [place] [address] [email or web address] Chest pain, unspecified type (Primary Dx); Wheezing Social History Tobacco Use Types Packs/Day Years [...] Allergy and Critical Care Medicine 10 [facility] [place] [address] Michael Marlow MD [address] [place] [address] [email or web address] 10/09/2025 9:40 AM EST Office Visit [facility] Rheumatology [address] [place] [address] [place] [address] Perla Cohn MD, MPH 22 [facility], [address] [place] [address] 10/22/2025 3:45 PM EST Appointment [facility], Bone Density - [facility] 30 [place] [address] Deneen Wheatley, [address] [place] [address] 11/10/2025 1:15 PM EST Office Visit [facility] Gastroenterology Clinic 10 [place] [address] Unknown, Unknown, MD Alba, Krysten Queen, WEB APPLICATION TESTER [address] [address] [email or web address] documented as of this encounter Results * CT CHEST WITH CONTRAST (10/19/2023 9:27 AM EST) Anatomical Region Laterality Modality Chest Computed Tomogra phy 10/19/2023 9:43 AM EST Impressions 10/19/2023 12:09 PM EST 1. Minimal patchy airspace opacity at the right upper lobe dependently which may be infectious versus inflammatory etiology. Follow-up CT in three months recommended to ensure resolution. 2. Subpleural reticulation with borderline bibasilar and left upper lobe bronchiectasis. Findings raise concern for an underlying interstitial process. Pulmonology consultation recommended. 3. Mildly prominent right hilar and mediastinal lymph nodes, possibly reactive. This too may be further evaluated with follow-up Narrative 10/19/2023 12:[address] CHEST WITH CONTRAST Referring clinician's provided indication for this examination in Epic: Outside Radiology Order; CHEST PAIN TECHNIQUE: Multidetector CT of the chest was performed with intravenous contrast using tailored dose modulation techniques. COMPARISON: Chest radiography 03/10/2023, CT abdomen 09/20/2022, CT chest 02/04/2008, CT neck 09/22/ FINDINGS: Devices/Tubes/Lines: None. Lungs: There is mild subpleural reticulation with diffuse mild interstitial prominence. There is borderline bibasilar and left upper lobe bronchiectasis. Findings are progressed as compared to the remote study of January 2008. There is minimal patchy airspace opacity at the right upper lobe dependently. Similar pleural parenchymal scarring at the bilateral lung apices. No discrete pulmonary nodules are demonstrated. Pleura: No pleural effusion or pneumothorax. Mediastinum: Atherosclerotic calcification of the aorta and major aortic branch vessels. No thyroid nodules. The heart is normal in size. There is no pericardial effusion. Mild amount of coronary calcifications. Lymph Nodes: There is a mildly prominent right hilar lymph node measuring 1.0 cm in short axis dimension. A mildly prominent subcarinal lymph node is also demonstrated measuring 1.0 cm in short axis dimension. There are additional subcentimeter mediastinal lymph nodes. Upper Abdomen: Surgical clips in the gallbladder fossa. Chest Wall: Limited evaluation of the breast parenchyma by CT. No chest wall mass. Bones: Redemonstration of dextrocurvature of the thoracic spine. Multilevel degenerative changes of the spine. No destructive osseous lesion. Procedure Note Elina Robb MD - 10/19/2023 CT CHEST WITH CONTRAST Referring clinician's provided indication for this examination in Epic:Outside Radiology Order; CHEST PAIN TECHNIQUE: Multidetector CT of the chest was performed with intravenouscontrast using tailored dose modulation techniques. COMPARISON: Chest radiography 03/10/2023, CT abdomen 09/20/2022, CT chest02/04/2008, CT neck 09/22/ FINDINGS: Devices/Tubes/Lines: None. Lungs: There is mild subpleural reticulation with diffuse mildinterstitial prominence. There is borderline bibasilar and left upper lobebronchiectasis. Findings are progressed as compared to the remote study 2007. There is minimal patchy airspace opacity at the right upper lobedependently. Similar pleural parenchymal scarring at the bilateral lungapices. No discrete pulmonary nodules are demonstrated. Pleura: No pleural effusion or pneumothorax. Mediastinum: Atherosclerotic calcification of the aorta and major aorticbranch vessels. No thyroid nodules. The heart is normal in size. There isno pericardial effusion. Mild amount of coronary calcifications. Lymph Nodes: There is a mildly prominent right hilar lymph node measuring1.0 cm in short axis dimension. A mildly prominent subcarinal lymph nodeis also demonstrated measuring 1.0 cm in short axis dimension. There areadditional subcentimeter mediastinal lymph nodes. Upper Abdomen: Surgical clips in the gallbladder fossa. Chest Wall: Limited evaluation of the breast parenchyma by CT. No chestwall mass. Bones: Redemonstration of dextrocurvature of the thoracic spine.Multilevel degenerative changes of the spine. No destructive osseouslesion. IMPRESSION: 1. Minimal patchy airspace opacity at the right upper lobe dependentlywhich may be infectious versus inflammatory etiology. Follow-up CT inthree months recommended to ensure resolution. 2. Subpleural reticulation with borderline bibasilar and left upper lobebronchiectasis. Findings raise concern for an underlying interstitialprocess. Pulmonology consultation recommended. 3. Mildly prominent right hilar and mediastinal lymph nodes, possiblyreactive. This too may be further evaluated with follow-up Delilah Blackman PA-C IMG CT CHEST Final Result documented in this encounter Visit Diagnoses Diagnosis Chest pain, unspecified type- Primary Wheezing Chest pain, unspecified type Wheezing documented in this encounter Care Teams Precision Lens Polisher Relationship Specialty Start Date End Date Deneen Wheatley DO [address] [place] [address] PCP - General Family Medicine 07/26/22 documented as of this encounter Additional Source Comments The information contained in this document represents components of the legal health record. It is not the complete legal health record.[facility]
--- OUTSIDE RECORDS SUMMARY | 2025-07-24 06:18 | XMS_ITS | Encounter Summary ---
Author Organization [facility] Address [address] [place] [address] Phone Care Team Providers Care Client Care Coordinator Name Role Phone Deneen Wheatley Kimberly KIRAN Primary Care Provider Encounter Details Date Type Department Care Team (Late st Contact Info) Description 06/19/2025 Procedure Pass [facility], Ct Scan - [address] [address] Social History Tobacco Use Types Packs/Day Years [...] your housing situation today? I have roseanna arroyo 06/19/2025 How many times have you move [...] as food, clothing, or medical care? No 06/19/2025 In the past 12 months have y ou been in a relationship with a person who hurts, threatens, or tries to control you? No 06/19/2025 Are you denied basic needs s uch as food, clothing, or medical care? No 06/19/2025 In the past 12 months have y ou been in a relationship with a person who hurts, threatens, or tries to control you? No 06/19/2025 Comments No Sex and Gender Information Value Date Recorded Sex Assigned at Female 10/25/2018 1:50 PM EST Legal Sex Female 6:49 PM EST Gender Identity Female 10/25/2018 1:50 PM EST Sexual Orientation Straight 10/25/2018 1: 50 PM EST documented as of this encounter Functional Status * Calculated C-SSRS Risk Score (Lifetime/Recent) Answer Date of Assessment Author No Risk Indicated 06/19/2025 11:01 AM Prince Draper, RN * Barry Suicide Severity Rating Scale (Screener/Recent Self-Report) Question Answer Date of Assessment Author 1. Wish to be (Past 1 Month) No 025 11:01 AM EDT Prince Ram RN 2. Non-Specific Active Suici renato Thoughts (Past 1 Month) No 06/19/2025 11:01 AM EDT Prince Ram RN 6. Suicidal Behavior (Lifetime) No 11:01 AM EDT Prince Ram RN documented as of this encounter Plan of Treatment Upcoming Encounters Date Type Department Care Team (Late st Contact Info) Description 10/03/2025 10:00 AM EST Office Visit [facility] Pulmonary, Allergy and Critical Care Medicine 10 [facility] [place] [address] Michael Marlow MD 10 [facility] 2nd [place] [address] [email or web address] 10/09/2025 9:40 AM EST Office Visit [facility] Rheumatology [address] [place] [address] Perla Cohn MD, MPH [address] [address] 10/22/2025 3:45 PM EST Appointment [facility], Bone Density - [facility] 30 [place] [address] Deneen Wheatley DO 70 [place] [address] 11/10/2025 1:15 PM EST Office Visit [facility] Gastroenterology Clinic 10 [place] [address] Unknown, Unknown, Krysten Oliver, KIDS CLUB ATTENDANT [address] [address] [email or web address] documented as of this encounter Visit Diagnoses Not on filedocumented in this encounter Care Teams Client Care Coordinator Relationship Specialty Start Date End Date Deneen Wheatley DO [address] [place] [address] [email or web address] PCP - General Family Medicine 07/26/22 documented as of this encounter Additional Source Comments The information contained in this document represents components of the legal health record. It is not the complete legal health record.[facility]
--- OUTSIDE RECORDS SUMMARY | 2025-07-24 06:18 | XMS_ITS | Encounter Summary ---
Author Organization [facility] Address [address] [place] [address] Phone Care Team Providers Care Social Science Teacher Name Role Phone Blue Rojo MD Primary Care Provider [phone] Deneen Wheatley DO Primary Care Provider [phone] Deneen Wheatley DO Primary Care Provider Encounter Details Date Type Department Care Team (Late st Contact Info) Description 10/26/2018 Procedure Pass [place] Admitting Dept - Virtual Department 30 [place] [address] Social History Tobacco Use Types Packs/Day Years [...] and Critical Care Medicine 10 [facility] [place] [address] Michael Marlow MD 10 [facility] 2nd [place] [address] [email or web address] 10/09/2025 9:40 AM EST Office Visit [facility] Rheumatology 22 [place] [address] Perla Cohn MD, MPH [address] [address] 10/22/2025 3:45 PM EST Appointment [facility], Bone Density - [facility] 30 [place] [address] Deneen Wheatley DO 70 [place] [address] 11/10/2025 1:15 PM EST Office Visit [facility] Gastroenterology Clinic 10 [place] [address] Unknown, Unknown, Krysten Oliver, WAREHOUSE DIRECTOR [address] [address] [email or web address] documented as of this encounter Visit Diagnoses Not on filedocumented in this encounter Additional Health Concerns Infection Onset Date Last Indicated Resolved Time CoV-Risk 06/11/2020 06/12/2020 06/25/2020 1:23 AM EDT CoV-Risk Comment:Per note documentation 03/10/2023 03/10/2023 4:32 PM EDT documented as of this encounter Care Teams Social Science Teacher Relationship Specialty Start Date End Date Blue Rojo MD [email or web address] PCP - General 07/20/17 05/03/21 Deneen Wheatley DO PCP - General Family Medicine 05/04/21 07/25/22 Deneen Wheatley DO [address] [place] [address] PCP - General Family Medicine 07/26/22 documented as of this encounter Additional Source Comments The information contained in this document represents components of the legal health record. It is not the complete legal health record.[facility]
--- OUTSIDE RECORDS SUMMARY | 2025-07-24 06:18 | XMS_ITS | Encounter Summary ---
Author Organization [facility] Address [address] [place] [address] Phone Care Team Providers Care Gettering Filament Machine Operator Name Role Phone Deneen Wheatley Primary Care Provider Encounter Details Date Type Department Care Team (Late st Contact Info) Description 09/06/2022 Procedure Pass [facility], Ct Scan - [address] [address] Social History Tobacco Use Types Packs/Day Years [...] Pulmonary, Allergy and Critical Care Medicine 10 [facility] [place] [address] Michael Marlow MD 10 [facility] 2nd [place] [address] [email or web address] 10/09/2025 9:40 AM EST Office Visit [facility] Rheumatology 22 [place] [address] Perla Cohn MD, MPH 22 [facility], [address] [place] [address] 10/22/2025 3:45 PM EST Appointment [facility], Bone Density - [facility] 30 [place] [address] Deneen Wheatley DO 70 [place] [address] 11/10/2025 1:15 PM EST Office Visit [facility] Gastroenterology Clinic 10 [place] [address] Unknown, Unknown, Krysten Oliver, CHEMICAL TREATMENT PLANT TECHNICIAN [address] [address] [email or web address] documented as of this encounter Visit Diagnoses Not on filedocumented in this encounter Additional Health Concerns Infection Onset Date Last Indicated Resolved Time CoV-Risk Comment:Per note documentation 03/10/2023 03/10/2023 3 4:32 PM EDT documented as of this encounter Care Teams Gettering Filament Machine Operator Relationship Specialty Start Date End Date Deneen Wheatley DO 70 [place] [address] PCP - General Family Medicine 07/26/22 documented as of this encounter Additional Source Comments The information contained in this document represents components of the legal health record. It is not the complete legal health record.[facility]
--- OUTSIDE RECORDS SUMMARY | 2025-07-24 06:18 | XMS_ITS | Encounter Summary ---
Author Organization [facility] Address [address] [place] [address] Phone Care Team Providers Care Sales Product Specialist Name Role Phone Deneen Wheatley Primary Care Provider Encounter Details Date Type Department Care Team (Late st Contact Info) Description 12/19/2023 Procedure Pass [facility], Ct Scan - [address] [address] Social History Tobacco Use Types Packs/Day Years [...] Upcoming Encounters Date Type Department Care Team ([facility] st Contact Info) Description 10/03/2025 10:00 AM EST Office Visit [facility] Pulmonary, Allergy and Critical Care Medicine 10 [place] [address] Michael Marlow MD 10 [facility] 2nd [place] [address] [email or web address] 10/09/2025 9:40 AM EST Office Visit [facility] Rheumatology [address] [place] [address] Perla Cohn MD, MPH [address] [place] [address] 203 [place] [address] 10/22/2025 3:45 PM EST Appointment [facility], Bone Density [address] [address] Deneen Wheatley DO 70 [place] [address] 11/10/2025 1:15 PM EST Office Visit [facility] Gastroenterology Clinic 10 [place] [address] Unknown, Unknown, Krysten Oliver, ADHESIVE BANDAGE MAKING OPERATOR [address] [id number] [email or web address] documented as of this encounter Visit Diagnoses Not on filedocumented in this encounter Care Teams Sales Product Specialist Relationship Specialty Start Date End Date Deneen Wheatley DO [address] [place] [address] [email or web address] PCP - General Family Medicine 07/26/22 documented as of this encounter Additional Source Comments The information contained in this document represents components of the legal health record. It is not the complete legal health record.[facility]
--- OUTSIDE RECORDS SUMMARY | 2025-07-24 06:18 | XMS_ITS | Encounter Summary ---
Author Organization [facility] Address [address] [place] [address] Phone Care Team Providers Care Angio Technologist Name Role Phone Deneen Wheatley Kimberly KIRAN Primary Care Provider Encounter Details Date Type Department Care Team (Late st Contact Info) Description 03/04/2024 Procedure Pass [facility], [address] [address] Social History Tobacco Use Types Packs/Day Years [...] Upcoming Encounters Date Type Department Care Team ([facility] st Contact Info) Description 10/03/2025 10:00 AM EST Office Visit [facility] Pulmonary, Allergy and Critical Care Medicine 10 [place] [address] Michael Marlow MD 10 [facility] 2nd [place] [address] [email or web address] 10/09/2025 9:40 AM EST Office Visit [facility] Rheumatology [address] [place] [address] Perla Cohn MD, MPH [address] [place] [address] 10/22/2025 3:45 PM EST Appointment [facility], Bone Density - [address] [address] Deneen Wheatley DO 70 [place] [address] 11/10/2025 1:15 PM EST Office Visit [facility] Gastroenterology Clinic 10 [place] [address] Unknown, Unknown, Krysten Oliver, TOW TRUCK DISPATCHER [address] [id number] [email or web address] documented as of this encounter Visit Diagnoses Not on filedocumented in this encounter Care Teams Angio Technologist Relationship Specialty Start Date End Date Deneen Wheatley DO [address] [place] [address] PCP - General Family Medicine 07/26/22 documented as of this encounter Additional Source Comments The information contained in this document represents components of the legal health record. It is not the complete legal health record.[facility]
--- OUTSIDE RECORDS SUMMARY | 2025-07-24 06:18 | XMS_ITS | Encounter Summary ---
Author Organization [facility] Address [address] [place] [address] Phone Care Team Providers Care Stock Roller Name Role Phone Blue Rojo MD Primary Care Provider [phone] Deneen Wheatley DO Primary Care Provider Deneen Wheatley DO Primary Care Provider Encounter Details Date Type Department Care Team (Late st Contact Info) Description 02/09/2021 Ancillary Orders Virtual Department 30 [place] [address] Petty Moe PA [address] [address] [email or web address] History of renal calculi Social History Tobacco Use Types Packs/Day Years [...] Pulmonary, Allergy and Critical Care Medicine 10 [facility] [place] [address] Michael Marlow MD 10 [facility] 2nd [place] [address] [email or web address] 10/09/2025 9:40 AM EST Office Visit [facility] Rheumatology 22 [place] [address] Perla Cohn MD, MPH 22 [facility], [address] [place] [address] 10/22/2025 3:45 PM EST Appointment [facility], Bone Density - [facility] 30 [place] [address] Deneen Wheatley DO 70 [place] [address] 11/10/2025 1:15 PM EST Office Visit [facility] Gastroenterology Clinic 10 [place] [address] Unknown, Unknown, Krysten Oliver, FACILITY MAINTENANCE TECHNICIAN [address] [address] [email or web address] documented as of this encounter Results * US Kidneys and Bladder (02/11/2021 10:02 AM EDT) Anatomical Region Laterality Modality Abdomen, Kidney Ultrasound 02/11/2021 10:0 7 AM EDT Impressions 02/11/2021 10:14 AM EDT Simple renal cyst on the left and small nonobstructing renal calculus, as described above. Narrative 02/11/2021 10:14 AM EDT US KIDNEYS AND BLADDER TECHNIQUE: Ultrasound evaluation of the KIDNEYS AND BLADDER. Volumetric sweeps were obtained and reviewed. COMPARISON: None FINDINGS: RIGHT KIDNEY: The right kidney measures 10.1 cm in largest dimension. Parenchyma is within normal limits. No hydronephrosis. LEFT KIDNEY: The left kidney measures 10.7 cm in largest dimension. Parenchyma is within normal limits. No hydronephrosis. At the midportion of the left kidney, a simple renal cyst is identified measuring 1.4 SAG x0.9 AP x1.2 TR centimeters in size. At the mid to lower aspect of the left kidney a renal calculus is identified measuring 5 mm in largest dimension. It is nonobstructive. BLADDER: Unremarkable.No ureteral jets are evident. Post void residual bladder volume is 1%. Procedure Note Kirill Maria MD - 02/11/2021 US KIDNEYS AND BLADDER TECHNIQUE: Ultrasound evaluation of the KIDNEYS AND BLADDER. Volumetric sweeps wereobtained and reviewed. COMPARISON: None FINDINGS: RIGHT KIDNEY: The right kidney measures 10.1 cm in largest dimension.Parenchyma is within normal limits. No hydronephrosis. LEFT KIDNEY: The left kidney measures 10.7 cm in largest dimension.Parenchyma is within normal limits. No hydronephrosis. At the midportionof the left kidney, a simple renal cyst is identified measuring 1.4 SAGx0.9 AP x1.2 TR centimeters in size. At the mid to lower aspect of theleft kidney a renal calculus is identified measuring 5 mm in largestdimension. It is nonobstructive. BLADDER: Unremarkable.No ureteral jets are evident. Post void residualbladder volume is 1%. IMPRESSION: Simple renal cyst on the left and small nonobstructing renal calculus, asdescribed above. Petty [facility] US RENAL Final Result documented in this encounter Visit Diagnoses Diagnosis History of renal calculi Personal history of urinary calculi History of renal calculi Personal history of urinary calculi documented in this encounter Additional Health Concerns Infection Onset Date Last Indicated Resolved Time CoV-Risk Comment:Per note documentation 03/10/2023 03/10/2023 4:32 PM EDT documented as of this encounter Care Teams Stock Roller Relationship Specialty Start Date End Date Blue Rojo MD [email or web address] PCP - General 07/20/17 05/03/21 Deneen Wheatley DO PCP - General Family Medicine 05/04/21 07/25/22 Deneen Wheatley DO [address] [place] [address] [email or web address] PCP - General Family Medicine 07/26/22 documented as of this encounter Additional Source Comments The information contained in this document represents components of the legal health record. It is not the complete legal health record.[facility]
--- OUTSIDE RECORDS SUMMARY | 2025-07-24 06:18 | XMS_ITS | Encounter Summary ---
Author Organization [facility] Address [address] [place] [address] Phone Care Team Providers Care Exchange Clerk Name Role Phone Deneen Wheatley DO Primary Care Provider [phone] Encounter Details Date Type Department Care Team (Latest Contact Info) Description 04/17/2025 Transcribe Orders Virtual Department 30 [place] [address] Deneen Wheatley DO 70 [place], [place] [id number] [email or web address] Asymptomatic menopausal state (Primary Dx) Social History Tobacco Use Types [...] with a working camera? Not on file Intimate Partner Violence Answer Date R ecorded Denied Basic Needs Not on file 08/15/2024 In the past 12 months have y ou been in a relationship with a person who hurts, threatens, or tries to control you? No 08/15/2024 Worried food would run out Not on file 08/15 In the past 12 months have y ou been in a relationship with a person who hurts, threatens, or tries to control you? No 08/15/2024 Comments No Sex and Gender Information Value [...] Description 10/03/2025 10:00 AM EST Office Visit [facility] Pulmonary, Allergy and Critical Care Medicine 10 [facility] [place] [place] [address] Michael Marlow MD 10 [facility] 2nd [place] [address] [email or web address] 10/09/2025 9:40 AM EST Office Visit [facility] Rheumatology 22 [place] [address] Perla Cohn MD, MPH 22 [facility], [address] [place] [address] 10/22/2025 3:45 PM EST Appointment [facility], Bone Density - [facility] 30 [place] [address] Deneen Wheatley DO 70 [place] [address] 11/10/2025 1:15 PM EST Office Visit [facility] Gastroenterology Clinic 10 [place] [address] Unknown, Unknown, Krysten Oliver, EDGER TECHNICIAN [address] [address] [email or web address] Scheduled Orders Name Type Priority Associated Diagnoses Orde r Schedule DXA Screening Imaging Routine Asymptomatic menopausal state Expected: 05/17/2025, Expires: 04/17/2026 documented as of this encounter Visit Diagnoses Diagnosis Asymptomatic menopausal state- Primary documented in this encounter Care Teams Exchange Clerk Relationship Specialty Start Date End Date Deneen Wheatley DO 70 [place] [address] [email or web address] PCP - General Family Medicine 07/26/22 documented as of this encounter Additional Source Comments The information contained in this document represents components of the legal health record. It is not the complete legal health record.[facility]
--- OUTSIDE RECORDS SUMMARY | 2025-07-24 06:18 | XMS_ITS | Encounter Summary ---
Author Organization [facility] Address [address] [place] [address] Phone Care Team Providers Care Program Assistant Name Role Phone Blue Rojo MD Primary Care Provider [phone] Deneen Wheatley DO Primary Care Provider [phone] Deneen Wheatley DO Primary Care Provider Encounter Details Date Type Department Care Team (Late st Contact Info) Description 04/26/2021 Procedure Pass [facility] Endoscopy Admitting Dept Virtual Department 30 [place] [address] Social History Tobacco Use Types Packs/Day Years [...] Pulmonary, Allergy and Critical Care Medicine 10 [place] [place] [address] Michael Marlow MD 10 [facility] 2nd [place] [address] [email or web address] 10/09/2025 9:40 AM EST Office Visit [facility] Rheumatology 22 [place] [address] Perla Cohn MD, MPH 22 [facility] 203 [place] [address] 10/22/2025 3:45 PM EST Appointment [facility], Bone Density - [facility] 30 [place] [address] Deneen Wheatley DO 70 [place] [address] 11/10/2025 1:15 PM EST Office Visit [facility] Gastroenterology Clinic 10 [place] [address] Unknown, Unknown, Krysten Oliver, TALENT ACQUISITION ASSISTANT [address] [address] [email or web address] documented as of this encounter Visit Diagnoses Not on filedocumented in this encounter Additional Health Concerns Infection Onset Date Last Indicated Resolved Time CoV-Risk Comment:Per note documentation 03/10/2023 03/10/2023 3 4:32 PM EDT documented as of this encounter Care Teams Program Assistant Relationship Specialty Start Date End Date Blue Rojo MD [email or web address] PCP - General 07/20/17 05/03/21 Deneen Wheatley DO PCP - General Family Medicine 05/04/21 07/25/22 Deneen Wheatley DO [address] [place] [address] [email or web address] PCP - General Family Medicine 07/26/22 documented as of this encounter Additional Source Comments The information contained in this document represents components of the legal health record. It is not the complete legal health record.[facility]
--- OUTSIDE RECORDS SUMMARY | 2025-07-24 06:18 | XMS_ITS | Encounter Summary ---
Author Organization [facility] Address [address] [place] [address] Phone Care Team Providers Care Casing Flusher Name Role Phone Deneen Wheatley Primary Care Provider Encounter Details Date Type Department Care Team (Latest Contact Info) Description 10/17/2023 Transcribe Orders Virtual Department 30 [place] [address] Delilah Blackman PA-C [address] [place] [address] [email or web address] Chest pain, unspecified type (Primary Dx) Social History Tobacco Use Types [...] Pulmonary, Allergy and Critical Care Medicine 10 [facility] [place] [address] Michael Marlow MD 10 [facility] 2nd [place] [address] [email or web address] 10/09/2025 9:40 AM EST Office Visit [facility] Rheumatology 22 [place] [address] Perla Cohn MD, MPH 22 [facility] 203 [place] [address] 10/22/2025 3:45 PM EST Appointment [facility], Bone Density - [facility] [address] [place] [address] Deneen Wheatley DO 70 [place] [address] 11/10/2025 1:15 PM EST Office Visit [facility] Gastroenterology Clinic 10 [place] [address] Unknown, Unknown, Krysten Oliver, ASSISTANT TO THE CEO 10 [facility] 2 [place], [place] [phone] [email or web address] documented as of this encounter Visit Diagnoses Diagnosis Chest pain, unspecified type- Primary documented in this encounter Care Teams Casing Flusher Relationship Specialty Start Date End Date Deneen Wheatley DO [address] [place] [address] PCP - General Family Medicine 07/26/22 documented as of this encounter Additional Source Comments The information contained in this document represents components of the legal health record. It is not the complete legal health record.[facility]
--- OUTSIDE RECORDS SUMMARY | 2025-07-24 06:18 | XMS_ITS | Clinical Summary ---
Author Organization [facility] Address [address] [id number] Care Team Providers Care Battery Tester Field Name Role Phone Deneen Wheatley MD Primary Care Provider Allergies Active Allergy Reactions Criticality Noted Date [...] day. 2 Active vitamins A,C,E-zinc-francisco er [id number] dahm-ux-ombq capsule Take 1 capsule by mouth. Active [...] Colonoscopy 1951 FOBT / Fit Test 1951 Sigmoidoscopy 1951 Mammogram 1991 Osteoporosis Screening 2001 Zoster Vaccines (1 of 2) 2001 Pneumococcal Vaccine: 50+ Years (2 of 2 - PCV20 or PCV21) 09/28/2018 09/28/2017 Alcohol/Substance Use Screening 10/02/2024 Health Care Proxy Review 10/02/2024 COVID-19 Vaccine (4 - 2024-2 6 season) 2025 10/23/2021, 04/06/2021, 03/09/2021 Influenza Vaccine (#1) 2025 RSV Vaccine (60+ years old a nd patients) (1 - 1-dose 75+ series) 2026 DTaP,Tdap,and Td Vaccines (3 - Td or Tdap) 08/22/2027 08/22/2017, 04/09/2010 Hepatitis B Vaccines Aged Out No long er eligible based on patient's age to complete this topic Insurance BCBS MCR REPLACE PPO Care Teams Battery Tester Field Relationship Specialty Start Date End Date Deneen Wheatley MD [address] [place] [phone] PCP - General 03/14/22
--- OUTSIDE RECORDS SUMMARY | 2025-07-24 06:18 | XMS_ITS | Encounter Summary ---
Author Organization [facility] Address [address] [place] [address] Phone Care Team Providers Care Marketing Operations Manager Name Role Phone Blue Rojo MD Primary Care Provider Deneen Wheatley DO Primary Care Provider Deneen Wheatley DO Primary Care Provider Encounter Details Date Type Department Care Team (Late st Contact Info) Description 09/09/2020 Procedure Pass [facility], Ct Scan - [address] [address] Social History Tobacco Use Types Packs/Day Years [...] Pulmonary, Allergy and Critical Care Medicine 10 [facility] [place] [address] Michael Marlow MD 10 [facility] 2nd [place] [address] [email or web address] 10/09/2025 9:40 AM EST Office Visit [facility] Rheumatology 22 [place] [address] Perla Cohn MD, MPH 22 [facility], [facility] 203 [place] [address] 10/22/2025 3:45 PM EST Appointment [facility], Bone Density - [facility] 30 [place] [address] Deneen Wheatley DO 70 [place] [address] 11/10/2025 1:15 PM EST Office Visit [facility] Gastroenterology Clinic 10 [place] [address] Unknown, Unknown, Krysten Oliver, DEPUTY CHIEF COUNSEL [address] [place] [address] [address] [email or web address] documented as of this encounter Visit Diagnoses Not on filedocumented in this encounter Additional Health Concerns Infection Onset Date Last Indicated Resolved Time CoV-Risk Comment:Per note documentation 03/10/2023 03/10/2023 3 4:32 PM EDT documented as of this encounter Care Teams Marketing Operations Manager Relationship Specialty Start Date End Date Blue Rojo MD [email or web address] PCP - General 07/20/17 05/03/21 Deneen Wheatley DO PCP - General Family Medicine 05/04/21 07/25/22 Deneen Wheatley DO [address] [place] [address] [email or web address] PCP - General Family Medicine 07/26/22 documented as of this encounter Additional Source Comments The information contained in this document represents components of the legal health record. It is not the complete legal health record.[facility]
--- OUTSIDE RECORDS SUMMARY | 2025-07-24 06:18 | XMS_ITS | Encounter Summary ---
Author Organization [facility] Address [address] [place] [address] Phone Care Team Providers Care Geriatric Social Work Professor Name Role Phone Blue Rojo MD Primary Care Provider Deneen Wheatley DO Primary Care Provider Deneen Wheatley DO Primary Care Provider Encounter Details Date Type Department Care Team (Late st Contact Info) Description 01/09/2018 Procedure Pass [facility], [address] [address] Social History Tobacco Use Types Packs/Day Years [...] Pulmonary, Allergy and Critical Care Medicine 10 [facility] [place] [address] Michael Marlow MD 10 [facility] 2nd [place] [address] [email or web address] 10/09/2025 9:40 AM EST Office Visit [facility] Rheumatology 22 [place] [address] Perla Cohn MD, MPH 22 [facility] 203 [place] [address] 10/22/2025 3:45 PM EST Appointment [facility], Bone Density - [facility] 30 [place] [address] Deneen Wheatley DO 70 [place] [address] 11/10/2025 1:15 PM EST Office Visit [facility] Gastroenterology Clinic 10 [place] [address] Unknown, Unknown, Krysten Oliver, SUPERVISOR SPECIAL EFFECTS [address] [address] [email or web address] documented as of this encounter Visit Diagnoses Not on filedocumented in this encounter Additional Health Concerns Infection Onset Date Last Indicated Resolved Time CoV-Risk 06/11/2020 06/12/2020 06/25/2020 1:23 AM EDT CoV-Risk Comment:Per note documentation 03/10/2023 03/10/2023 4:32 PM EDT documented as of this encounter Care Teams Geriatric Social Work Professor Relationship Specialty Start Date End Date Blue Rojo MD [email or web address] PCP - General 07/20/17 05/03/21 Deneen Wheatley DO PCP - General Family Medicine 05/04/21 07/25/22 Deneen Wheatley DO [address] [place] [address] PCP - General Family Medicine 07/26/22 documented as of this encounter Additional Source Comments The information contained in this document represents components of the legal health record. It is not the complete legal health record.[facility]
--- OUTSIDE RECORDS SUMMARY | 2025-07-24 06:18 | XMS_ITS | Encounter Summary ---
Author Organization [facility] Address [address] [place] [address] Phone Care Team Providers Care C Web Developer Name Role Phone Blue Rojo MD Primary Care Provider [phone] Deneen Wehatley DO Primary Care Provider Deneen Wheatley DO Primary Care Provider [phone] Encounter Details Date Type Department Care Team (Late st Contact Info) Description 11/12/2019 Ancillary Orders [facility], X-Ray - [facility] [address] [place] [address] Shayne Desouza DO [address] [place], [place] [id number] [email or web address] Cervicalgia Social History Tobacco Use Types Packs/Day Years [...] Pulmonary, Allergy and Critical Care Medicine 10 [facility] [place] [address] Michael Marlow MD 10 [facility] 2nd [place] [address] [email or web address] 10/09/2025 9:40 AM EST Office Visit [facility] Rheumatology [address] [place] [address] Perla Cohn MD, MPH 22 [facility], [address] [place] [address] 10/22/2025 3:45 PM EST Appointment [facility], Bone Density - [facility] [address] [place] [address] Deneen Wheatley DO 70 [place] [address] 11/10/2025 1:15 PM EST Office Visit [facility] G[facility]ology [facility] 10 [place] [address] Unknown, Unknown, Krysten Oliver, VOLUNTEER SERVICES COORDINATOR [address] [id number] [email or web address] documented as of this encounter Results * XR CERVICAL SPINE 4-5 VIEWS (11/12/2019 1:19 PM EST) Anatomical Region Laterality Modality C-spine Radiographic Holly ging 11/12/2019 1:25 PM EST Impressions 11/12/2019 1:28 PM EST Stable multilevel cervical spine disc disease. POS - [id number] Narrative 11/12/2019 1:28 PM EST HISTORY: As above. Remote trauma. COMPARISON: MRI 07/20/2010. CERVICAL RADIOGRAPH FINDINGS: Five views obtained. Stable mild reversal of cervical lordosis, mild scoliosis and minimal retrolisthesis of C3 and C4. Stable mild multilevel anterior wedging and endplate osteophytes from C3 to C6 with mild C3-4 and moderate C4-5 through C6-7 disc space narrowing. Mild multilevel facet arthropathy. Neural foramina are patent. No bone lesions or fracture. No cervical ribs. Prevertebral soft tissues are normal. Imaged lung apices are clear. Procedure Note Vinnie Devlin MD - 11/12/2019 HISTORY: As above. Remote trauma. COMPARISON: MRI 07/20/2010. CERVICAL RADIOGRAPH FINDINGS: Five views obtained. Stable mild reversal of cervical lordosis, mild scoliosis and minimalretrolisthesis of C3 and C4. Stable mild multilevel anterior wedging andendplate osteophytes from C3 to C6 with mild C3-4 and moderate C4-5through C6-7 disc space narrowing. Mild multilevel facet arthropathy.Neural foramina are patent. No bone lesions or fracture. No cervicalribs. Prevertebral soft tissues are normal. Imaged lung apices areclear. IMPRESSION: Stable multilevel cervical spine disc disease. POS - [id number] us Shayne Desouza DO IMG XR SPINE Final Result documented in this encounter Visit Diagnoses Diagnosis Cervicalgia Cervicalgia documented in this encounter Additional Health Concerns Infection Onset Date Last Indicated Resolved Time CoV-Risk 06/11/2020 06/12/2020 06/25/2020 1:23 AM EDT CoV-Risk Comment:Per note documentation 03/10/2023 03/10/2023 3 4:32 PM EDT documented as of this encounter Care Teams C Web Developer Relationship Specialty Start Date End Date Blue Rojo MD [email or web address] PCP - General 07/20/17 05/03/21 Deneen Wheatley DO PCP - General Family Medicine 05/04/21 07/25/22 Deneen Wheatley DO [address] [place] [address] PCP - General Family Medicine 07/26/22 documented as of this encounter Additional Source Comments The information contained in this document represents components of the legal health record. It is not the complete legal health record.[facility]
--- OUTSIDE RECORDS SUMMARY | 2025-07-24 06:18 | XMS_ITS | Encounter Summary ---
Author Organization [facility] Address [address] [place] [address] Phone Care Team Providers Care School Psychometrist Name Role Phone Deneen Wheatley DO Primary Care Provider Reason for Referral * MRI/CAT Scan - Closed Specialty Diagnoses / Procedures Referred By Monty hernandez Referred To Contact Radiology Diagnoses Elevated lipase Elevated LFTs Vomiting, unspecified vomiting type, unspecified whether nausea present Procedures CT Abdomen Only (No Pelvis) CHG CT SCAN OF ABDOMEN CONTRAST CHG CT SCAN,ABDOMEN,W/O CONTRAST CHG CT SCAN OF ABDOMEN Laci Corona MD Phone: tel: fax: mailto: Referral ID Status Reason Start Date Expiration Date Visits Re quested Visits Authorized [id number] Closed 09/06/2022 11/04/2022 1 1 Encounter Details Date Type Department Care Team (Latest Contact Info) Description 09/06/2022 Transcribe Orders Virtual Department 30 [place] [address] Laci Felix MD 10 [facility] 2 [place] [address] Elevated lipase (Primary Dx); Elevated LFTs; Vomiting, unspecified vomiting type, unspecified whether nausea present Social History Tobacco Use Types Packs/Day Years [...] Pulmonary, Allergy and Critical Care Medicine 10 [facility] [place] [address] Michael Marlow MD [address] [address] [email or web address] 10/09/2025 9:40 AM EST Office Visit [facility] Rheumatology [address] [place] [address] Perla Cohn MD, MPH [address] [address] 10/22/2025 3:45 PM EST Appointment [facility], Bone Density - [facility] 30 [place] [address] Deneen Wheatley DO 70 [place] [address] 11/10/2025 1:15 PM EST Office Visit [facility] Gastroenterology Clinic 10 [place] [address] Unknown, Unknown, Krysten Oliver, PHILOSOPHY PROFESSOR 10 [facility] 2 [place] [address] [email or web address] documented as of this encounter Results * CT ABDOMEN WITH CONTRAST (09/20/2022 3:30 PM EST) Anatomical Region Laterality Modality Abdomen, Abdominal Vasculature C omputed Tomography 09/20/2022 4:54 PM EST Impressions 09/20/2022 5:04 PM EST Status post cholecystectomy. No evidence of pancreatitis. Unchanged 4 mm nonobstructing left renal stone. Narrative 09/20/2022 5:[address] ABDOMEN WITH CONTRAST TECHNIQUE: Multidetector-row CT of the abdomen was performed after administration of intravenous contrast using tailored dose modulation techniques. Images were reconstructed in the axial, coronal, and sagittal planes COMPARISON: 02/20/2017, right upper quadrant ultrasound 09/02/2022 FINDINGS: Lower Chest: Lung bases clear Liver: No focal lesions. Biliary: Status post cholecystectomy. No biliary ductal dilatation. Spleen: No splenomegaly or focal lesions. Pancreas: No evidence of pancreatitis. No masses or ductal dilatation. Adrenal Glands: No nodules. Kidneys/Ureters: Multiple too small to characterize hypodensities bilaterally are likely cysts. 4 mm nonobstructing left renal stone. No proximal ureter tract calculi Bowel: Partially visualized stomach and upper abdomen bowel are unremarkable. Peritoneum/Retroperitoneum: No free air or free fluid. Lymph Nodes: No lymphadenopathy Vessels: Minimal vascular calcifications. No abdominal aortic aneurysm. Bones/Soft Tissues: Unremarkable Procedure Note Tien Mims MD, HALEY - 09/20/2022 CT ABDOMEN WITH CONTRAST TECHNIQUE: Multidetector-row CT of the abdomen was performed afteradministration of intravenous contrast using tailored dose modulationtechniques. Images were reconstructed in the axial, coronal, and sagittalplanes COMPARISON: 02/20/2017, right upper quadrant ultrasound 09/02/2022 FINDINGS: Lower Chest: Lung bases clear Liver: No focal lesions. Biliary: Status post cholecystectomy. No biliary ductal dilatation. Spleen: No splenomegaly or focal lesions. Pancreas: No evidence of pancreatitis. No masses or ductal dilatation. Adrenal Glands: No nodules. Kidneys/Ureters: Multiple too small to characterize hypodensitiesbilaterally are likely cysts. 4 mm nonobstructing left renal stone. Noproximal ureter tract calculi Bowel: Partially visualized stomach and upper abdomen bowel areunremarkable. Peritoneum/Retroperitoneum: No free air or free fluid. Lymph Nodes: No lymphadenopathy Vessels: Minimal vascular calcifications. No abdominal aortic aneurysm. Bones/Soft Tissues: Unremarkable IMPRESSION: Status post cholecystectomy. No evidence of pancreatitis. Unchanged 4 mm nonobstructing left renal stone. Laci Felix MD IMG CT XSPECIALTY ORDERABLES Fin al Result documented in this encounter Visit Diagnoses Diagnosis Elevated lipase- Primary Elevated LFTs Other abnormal blood chemistry Vomiting, unspecified vomiting type, unspecified whether nausea present Elevated lipase Elevated LFTs Other abnormal blood chemistry Vomiting, unspecified vomiting type, unspecified whether nausea present documented in this encounter Additional Health Concerns Infection Onset Date Last Indicated Resolved Time CoV-Risk Comment:Per note documentation 03/10/2023 03/10/2023 3 4:32 PM EDT documented as of this encounter Care Teams School Psychometrist Relationship Specialty Start Date End Date Deneen Wheatley DO [address] [place] [address] [email or web address] PCP - General Family Medicine 07/26/22 documented as of this encounter Additional Source Comments The information contained in this document represents components of the legal health record. It is not the complete legal health record.[facility]
--- OUTSIDE RECORDS SUMMARY | 2025-07-24 06:18 | XMS_ITS | Encounter Summary ---
Author Organization [facility] Address [address] [place] [address] Phone Care Team Providers Care Computer Engineering Professor Name Role Phone Deneen Wheatley Primary Care Provider Encounter Details Date Type Department Care Team (Late st Contact Info) Description 08/20/2024 Procedure Pass [facility] Admitting Dept Virtual Department 30 [place] [address] Social History Tobacco Use Types Packs/Day Years [...] CD Pulmonary, Allergy and Critical Care Medicine 10 [place] [address] Michael Marlow MD [address] [address] [email or web address] 10/09/2025 9:40 AM EST Office Visit [facility] Rheumatology [address] [place] [address] Perla Cohn MD, MPH 22 [facility], [address] [address] 10/22/2025 3:45 PM EST Appointment [facility], Bone Density - [facility] 30 [place] [address] Deneen Wheatley DO 70 [place] [address] 11/10/2025 1:15 PM EST Office Visit [facility] Gastroenterology Clinic 10 [place] [address] Unknown, Unknown, Krysten Oliver, METER TESTER PRIMARY [address] [place] [address] [email or web address] documented as of this encounter Visit Diagnoses Not on filedocumented in this encounter Care Teams Computer Engineering Professor Relationship Specialty Start Date End Date Deneen Wheatley DO [address] [place] [address] PCP - General Family Medicine 07/26/22 documented as of this encounter Additional Source Comments The information contained in this document represents components of the legal health record. It is not the complete legal health record.[facility]
--- OUTSIDE RECORDS SUMMARY | 2025-07-24 06:18 | XMS_ITS | Encounter Summary ---
Author Organization [facility] Address [address] [place] [address] Phone Care Team Providers Care Sexual Health Physician Name Role Phone Deneen Wheatley Kimberly KIRAN Primary Care Provider [phone] Encounter Details Date Type Department Care Team (Late st Contact Info) Description 10/16/2024 Procedure Pass [facility], Ct Scan - [address] [address] Social History Tobacco Use Types Packs/Day Years [...] Pulmonary, Allergy and Critical Care Medicine 10 [place] [address] Michael Marlow MD [address] [address] [email or web address] 10/09/2025 9:40 AM EST Office Visit [facility] Rheumatology [address] [place] [address] Perla Cohn MD, MPH [address] [place] [address], [address] [address] 10/22/2025 3:45 PM EST Appointment [facility], Bone Density - [facility] 30 [place] [address] Deneen Wheatley DO 70 [place] [address] 11/10/2025 1:15 PM EST Office Visit [facility] Gastroenterology Clinic 10 [place] [address] Unknown, Unknown, Krysten Oliver, AUTOMOBILE SPRING REPAIRER [address] [address] [email or web address] documented as of this encounter Visit Diagnoses Not on filedocumented in this encounter Care Teams Sexual Health Physician Relationship Specialty Start Date End Date Deneen Wheatley DO 70 [place] [address] PCP - General Family Medicine 07/26/22 documented as of this encounter Additional Source Comments The information contained in this document represents components of the legal health record. It is not the complete legal health record.[facility]
--- OUTSIDE RECORDS SUMMARY | 2025-07-24 06:18 | XMS_ITS | Encounter Summary ---
Author Organization [facility] Address [address] [place] [address] Phone Care Team Providers Care Experience Designer Name Role Phone Blue Rojo MD Primary Care Provider Deneen Wheatley DO Primary Care Provider [phone] Deneen Wheatley DO Primary Care Provider Reason for Referral * MRI/CAT Scan - Closed Specialty Diagnoses / Procedures Referred By Monty hernandez Referred To Contact Radiology Diagnoses Chronic sore throat Procedures CT Neck Rex Yanez MD Phone: tel: fax: [email or web address] Referral ID Status Reason Start Date Expiration Date Visits Re quested Visits Authorized [id number] Closed 09/02/2020 03/01/2021 1 1 Encounter Details Date Type Department Care Team ([facility] st Contact Info) Description 09/09/2020 Ancillary Orders Virtual Department 30 [place] [address] Rex Yanez MD 100 [facility], [facility] 100 [place] [address] [email or web address] Chronic sore throat Social History Tobacco Use Types Packs/Day Years [...] Pulmonary, Allergy and Critical Care Medicine 10 [place] [address] Michael Marlow MD 10 [facility] 2nd [place] [address] [email or web address] 10/09/2025 9:40 AM EST Office Visit [facility] Rheumatology [address] [place] [address] Perla Cohn MD, MPH [address] [address] 10/22/2025 3:45 PM EST Appointment [facility], Bone Density - [address] [address] Deneen Wheatley DO 70 [place] [address] 11/10/2025 1:15 PM EST Office Visit [facility] Gastroenterology Clinic 10 [place] [address] Unknown, Unknown, Krysten Oliver, PROCESS IMPROVEMENT ANALYST [address] [address] [email or web address] documented as of this encounter Results * CT NECK SOFT TISSUE WITHOUT CONTRAST (09/22/2020 10:49 AM EST) Anatomical Region Laterality Modality Neck Computed Tomogra phy 09/22/2020 11:0 2 AM EST Impressions 09/22/2020 11:06 AM EST No discrete mass, inflammatory change or specific source of the symptoms detected on unenhanced imaging. Narrative 09/22/2020 11:06 AM EST HISTORY: Sore throat. COMPARISON: None TECHNIQUE: Without the administration of intravenous contrast, scanning obtained from skull base to thoracic inlet. Sagittal and coronal reformats generated. Parameters of scanning tailored to the patient's body habitus and anatomy of concern. Automated exposure control utilized. Patient has a history of IV contrast allergy and was not premedicated. Study was performed without contrast. FINDINGS: Scans performed without IV contrast of diminished sensitivity for inflammatory or neoplastic processes. Skull Base: No mass effect or edema seen in the visualized portions of the brain. Included orbits demonstrate no mass. No other findings of concern. Suprahyoid Neck: No major salivary gland asymmetries or lesions. No adenopathy or fluid collection seen. No pronounced pharyngeal mass for technique. Infrahyoid Neck: Thyroid unremarkable. No laryngeal finding of concern. No adenopathy, inflammatory change or fluid collection identified. Epiglottis unremarkable. Lung apices/Superior Mediastinum: Peripheral scarring in both lungs. No superior mediastinal adenopathy. No major arch anomaly. Vascular: No major arch anomaly. No significant carotid calcification. Bones: Visualized paranasal sinuses clear. Mastoids and middle ear spaces clear. No calvarial destructive lesions multilevel degenerative disc disease and facet arthropathy in the cervical spine. Some slight flattening at the mandibular condyles without marked degenerative change or clear AVN. Procedure Note Solomon Vázquez MD - 09/22/2020 HISTORY: Sore throat. COMPARISON: None TECHNIQUE: Without the administration of intravenous contrast, scanningobtained from skull base to thoracic inlet. Sagittal and coronalreformats generated. Parameters of scanning tailored to the patient's bodyhabitus and anatomy of concern. Automated exposure control utilized.Patient has a history of IV contrast allergy and was not premedicated.Study was performed without contrast. FINDINGS: Scans performed without IV contrast of diminished sensitivityfor inflammatory or neoplastic processes. Skull Base: No mass effect or edema seen in the visualized portions of thebrain. Included orbits demonstrate no mass. No other findings ofconcern. Suprahyoid Neck: No major salivary gland asymmetries or lesions. Noadenopathy or fluid collection seen. No pronounced pharyngeal mass fortechnique. Infrahyoid Neck: Thyroid unremarkable. No laryngeal finding of concern. Noadenopathy, inflammatory change or fluid collection identified. Epiglottisunremarkable. Lung apices/Superior Mediastinum: Peripheral scarring in both lungs. Nosuperior mediastinal adenopathy. No major arch anomaly. Vascular: No major arch anomaly. No significant carotid calcification. Bones: Visualized paranasal sinuses clear. Mastoids and middle ear spacesclear. No calvarial destructive lesions multilevel degenerative discdisease and facet arthropathy in the cervical spine. Some slightflattening at the mandibular condyles without marked degenerative changeor clear AVN. IMPRESSION: No discrete mass, inflammatory change or specific source of the symptomsdetected on unenhanced imaging. Rex Yanez MD IM CT XSPECIALTY ORDERAB LES Final Result documented in this encounter Visit Diagnoses Diagnosis Chronic sore throat Chronic pharyngitis Chronic sore throat Chronic pharyngitis documented in this encounter Additional Health Concerns Infection Onset Date Last Indicated Resolved Time CoV-Risk Comment:Per note documentation 03/10/2023 03/10/2023 3 4:32 PM EDT documented as of this encounter Care Teams Experience Designer Relationship Specialty Start Date End Date Blue Rojo MD PCP - General 07/20/17 05/03/21 Deneen Wheatley DO [email or web address] PCP - General Family Medicine 05/04/21 07/25/22 Deneen Wheatley DO [address] [place] [address] PCP - General Family Medicine 07/26/22 documented as of this encounter Additional Source Comments The information contained in this document represents components of the legal health record. It is not the complete legal health record.[facility]
--- OUTSIDE RECORDS SUMMARY | 2025-07-24 06:18 | XMS_ITS | Encounter Summary ---
Author Organization [facility] Address [address] [place] [address] Phone Care Team Providers Care Electron Microscopist Name Role Phone Deneen Wheatley Kimberly KIRAN Primary Care Provider Encounter Details Date Type Department Care Team (Late st Contact Info) Description 03/13/2024 Procedure Pass [facility], [address] [address] Social History Tobacco Use Types Packs/Day Years [...] Upcoming Encounters Date Type Department Care Team ([facility] st Contact Info) Description 10/03/2025 10:00 AM EST Office Visit [facility] Pulmonary, Allergy and Critical Care Medicine 10 [place] [address] Michael Marlow MD 10 [facility] 2nd [place] [address] [email or web address] 10/09/2025 9:40 AM EST Office Visit [facility] Rheumatology [address] [place] [address] Perla Cohn MD, MPH [address] [place] [address] 10/22/2025 3:45 PM EST Appointment [facility], Bone Density - [address] [address] Deneen Wheatley DO 70 [place] [address] 11/10/2025 1:15 PM EST Office Visit [facility] Gastroenterology Clinic 10 [place] [address] Unknown, Unknown, Krysten Oliver, OFFICE SERVICES MANAGER [address] [id number] [email or web address] documented as of this encounter Visit Diagnoses Not on filedocumented in this encounter Care Teams Electron Microscopist Relationship Specialty Start Date End Date Deneen Wheatley DO [address] [place] [address] PCP - General Family Medicine 07/26/22 documented as of this encounter Additional Source Comments The information contained in this document represents components of the legal health record. It is not the complete legal health record.[facility]
--- OUTSIDE RECORDS SUMMARY | 2025-07-24 06:18 | XMS_ITS | Encounter Summary ---
Author Organization [facility] Address [address] [place] [address] Phone Care Team Providers Care Resident Advisor Name Role Phone Deneen Wheatley DO Primary Care Provider Reason for Referral * MRI/CAT Scan - Closed Specialty Diagnoses / Procedures Referred By Contac t Referred To Contact Radiology Diagnoses Spondylosis without myelopathy or radiculopathy, lumbar region Procedures MRI Lumbar Spine CHG MRI, LUMBAR SPINE COMBO CHG MRI, LUMBAR SPINE CONTRAST Shayne Desouza DO [address] [place] [phone] Phone: tel: fax: [email or web address] Referral ID Status Reason Start Date Expiration Date Visits Re quested Visits Authorized [id number] Closed 03/01/2024 04/29/2024 1 1 * MRI/CAT Scan - Closed Specialty Diagnoses / Procedures Referred By Contac t Referred To Contact Radiology Diagnoses Cervical disc disorder with myelopathy, unspecified cervical region Procedures MRI Cervical Spine CHG MRI, CERV SPINE COMBO CHG MRI, CERV SPINE CONTRAST Shayne Desouza DO Phone: tel: fax: [email or web address] Referral ID Status Reason Start Date Expiration Date Visits Re quested Visits Authorized [id number] Closed 03/01/2024 04/29/2024 1 1 Encounter Details Date Type Department Care Team (Latest Contact Info) Description 03/04/2024 Transcribe Orders Virtual Department [address] [place] [address] Shayne Desouza DO [address] [place] [address] [email or web address] Cervical disc disorder with myelopathy, unspecified cervical region (Primary Dx); Spondylosis without myelopathy or radiculopathy, lumbar region Social History Tobacco Use Types Packs/Day Years [...] Upcoming Encounters Date Type Department Care Team ( Contact Info) Description 10/03/2025 10:00 AM EST Office Visit [facility] Pulmonary, Allergy and Critical Care Medicine 10 [facility] [place] [address] Michael Marlow MD 10 [facility] 2nd [place] [address] [email or web address] 10/09/2025 9:40 AM EST Office Visit [facility] Rheumatology [address] [place] [address] Perla Cohn MD, MPH 22 [facility], [address] [place] [address] 10/22/2025 3:45 PM EST Appointment [facility], Bone Density - [facility] 30 [place] [address] Deneen Wheatley DO [address] [place] [address] 11/10/2025 1:15 PM EST Office Visit [facility] G[facility]ology [facility] 10 [place] [address] Unknown, Unknown, Krysten Oliver, [employer] [address] [address] [email or web address] documented as of this encounter Results * MRI CERVICAL SPINE (NEURO) FOCUS WITHOUT CONTRAST (04/06/2024 7:34 AM EDT) Anatomical Region Laterality Modality C-spine Magnetic Resonan ce 04/09/2024 12:3 4 PM EDT Impressions 04/09/2024 12:41 PM EDT 1. Cervical spondylosis, as above, with mild spinal canal stenosis at multiple levels. 2. Multilevel foramina stenosis, severe at C5-C6 and on the left at C4-C5. Narrative 04/09/2024 12:41 PM EDT MRI CERVICAL SPINE (NEURO) FOCUS WITHOUT CONTRAST Referring clinician's provided indication for this examination in [facility]: Outside Radiology Order; CERVICAL DISC DISORDER WITH MYELOPATHY, UNSPECIFIED CERVICAL REGION TECHNIQUE: MRI CERVICAL SPINE (NEURO) FOCUS WITHOUT CONTRAST Multi-sequence, multi-planar MRI of the cervical spine was performed without intravenous contrast. COMPARISON: Cervical spine radiograph November 12, 2019 FINDINGS: CERVICAL SPINE: There is motion artifact. Alignment and Vertebrae: There is mild reversal of the cervical lordosis centered at C3-C4. The alignment is otherwise grossly preserved without significant listhesis in the cervical spine. There is possibly mild anterolisthesis at T2-T3. Vertebral body height is grossly preserved. No compression fracture. Marrow: No bone marrow replacing lesion. Discs and Endplates: Loss of disc height and signal from C3-C4 through C6-C7 with Modic type II endplate changes and probably mild edema to changes and Modic type I endplate changes at C4-C5. Spinal Cord: Caliber of the cord is normal. No gross signal abnormality within the limits of the motion artifact. Soft Tissue: No prevertebral edema. Findings by level: C2-C3: No spinal or foraminal stenosis. C3-C4: Mild disc bulge with posterior osteophytic ridging, and facet arthropathy. No spinal canal stenosis. Mild bilateral foraminal stenosis. C4-C5: Disc bulge and posterior osteophytic ridging. Uncovertebral arthropathy and facet joint disease. Mild spinal canal stenosis. Moderate right and severe left foraminal stenosis. C5-C6: Disc/osteophyte complex. Uncovertebral arthropathy and facet joint disease. Mild spinal canal stenosis. Severe right greater than left foraminal stenosis. C6-C7: Disc/osteophyte complex. Uncovertebral arthropathy and facet joint disease. No significant spinal canal stenosis. Mild right and moderate foraminal stenosis. C7-T1: Disc bulge and facet joint arthropathy. No significant spinal canal stenosis. Mild foraminal stenosis. Procedure Note Sy Anaya MD - 04/09/2024 MRI CERVICAL SPINE (NEURO) FOCUS WITHOUT CONTRAST Referring clinician's provided indication for this examination in [facility]:Outside Radiology Order; CERVICAL DISC DISORDER WITH MYELOPATHY,UNSPECIFIED CERVICAL REGION TECHNIQUE: MRI CERVICAL SPINE (NEURO) FOCUS WITHOUT CONTRAST Multi-sequence, multi-planar MRI of the cervical spine was performedwithout intravenous contrast. COMPARISON: Cervical spine radiograph November 12, 2019 FINDINGS: CERVICAL SPINE: There is motion artifact. Alignment and Vertebrae: There is mild reversal of the cervical lordosiscentered at C3-C4. The alignment is otherwise grossly preserved withoutsignificant listhesis in the cervical spine. There is possibly mildanterolisthesis at T2-T3. Vertebral body height is grossly preserved. Nocompression fracture. Marrow: No bone marrow replacing lesion. Discs and Endplates: Loss of disc height and signal from C3-C4 throughC6-C7 with Modic type II endplate changes and probably mild edema tochanges and Modic type I endplate changes at C4-C5. Spinal Cord: Caliber of the cord is normal. No gross signal abnormalitywithin the limits of the motion artifact. Soft Tissue: No prevertebral edema. Findings by level: C2-C3: No spinal or foraminal stenosis. C3-C4: Mild disc bulge with posterior osteophytic ridging, and facetarthropathy. No spinal canal stenosis. Mild bilateral foraminalstenosis. C4-C5: Disc bulge and posterior osteophytic ridging. Uncovertebralarthropathy and facet joint disease. Mild spinal canal stenosis. Moderateright and severe left foraminal stenosis. C5-C6: Disc/osteophyte complex. Uncovertebral arthropathy and facet jointdisease. Mild spinal canal stenosis. Severe right greater than leftforaminal stenosis. C6-C7: Disc/osteophyte complex. Uncovertebral arthropathy and facet jointdisease. No significant spinal canal stenosis. Mild right and moderateforaminal stenosis. C7-T1: Disc bulge and facet joint arthropathy. No significant spinal canalstenosis. Mild foraminal stenosis. IMPRESSION: 1. Cervical spondylosis, as above, with mild spinal canal stenosis atmultiple levels. 2. Multilevel foramina stenosis, severe at C5-C6 and on the left atC4-C5. us Shayne Desouza DO IMG MR XSPECIALTY Final Resu lt * MRI LUMBAR SPINE (NEURO) WITHOUT CONTRAST (04/06/2024 7:34 AM EDT) Anatomical Region Laterality Modality L-spine Magnetic Resonan ce 04/09/2024 11:0 9 AM EDT Impressions 04/09/2024 11:31 AM EDT 1. Degenerative disc disease and facet arthropathy at multiple levels, worse at L4- L5. 2. L4-L5 left subarticular zone disc extrusion, in contact with the left L5 nerve roots. 3. Other degenerative changes, as above. 4. Right hepatic lobe T2 hyperintense focus/lesion, not well characterized in this exam. Narrative 04/09/2024 11:31 AM EDT MRI LUMBAR SPINE (NEURO) WITHOUT CONTRAST Referring clinician's provided indication for this examination in [employer]: Outside Radiology Order; spondylosis without myelopathy or radiculopathy lumbar region TECHNIQUE: MRI LUMBAR SPINE (NEURO) WITHOUT CONTRAST Multi-sequence, multi-planar MRI of the lumbar spine was performed without intravenous contrast. COMPARISON: Lumbar spine MRI May 03, 2022. FINDINGS: LUMBAR SPINE: Alignment and Vertebrae: Vertebral alignment and body heights are normal and stable. No compression fracture Marrow: No bone marrow replacing lesion. Discs and Endplates: Loss of disc height and signal at L4-5 with Modic type II endplate changes, unchanged. Conus: Tip of the conus ends at L1. No cord compression. Soft Tissues: No prevertebral edema. Other Findings: Focal T2 hyperintensity seen in the left lower renal pole, probably cysts, grossly stable in size. Additional T2 hyperintensity in the left renal interpolar region also probably a cyst. There is artifact obscuring the posterior portion of the kidneys bilaterally. There are T2 hyperintensities noted on the right hepatic lobe measuring 6 mm, nonspecific. Findings by level: T12-L1: No spinal or foraminal stenosis. L1-L2: Minimal disc bulging. No spinal or foraminal stenosis. L2-L3: Disc bulge and mild facet joint arthropathy. Mild spinal canal stenosis. No hyper foraminal stenosis. L3-L4: Disc bulge with a right central disc protrusion. Facet joint arthropathy. Mild spinal canal stenosis. Minimal encroachment of the foramina. L4-L5: Disc/osteophyte complex, lateralizing toward the right. There is a small left subarticular zone extrusion migrating caudally in contact with the left L5 nerve roots, grossly. Facet joint arthropathy and ligamentum flavum. Mild spinal canal stenosis. Sisv-hm-[id number] bilateral foraminal stenosis. L5-S1: Disc bulge and facet arthropathy. No spinal or foraminal stenosis. Procedure Note Sy Anaya MD - 04/09/2024 MRI LUMBAR SPINE (NEURO) WITHOUT CONTRAST Referring clinician's provided indication for this examination in Epic:Outside Radiology Order; spondylosis without myelopathy or radiculopathylumbar region TECHNIQUE: MRI LUMBAR SPINE (NEURO) WITHOUT CONTRAST Multi-sequence, multi-planar MRI of the lumbar spine was performed withoutintravenous contrast. COMPARISON: Lumbar spine MRI May 03, 2022. FINDINGS: LUMBAR SPINE: Alignment and Vertebrae: Vertebral alignment and body heights are normaland stable. No compression fracture Marrow: No bone marrow replacing lesion. Discs and Endplates: Loss of disc height and signal at L4-5 with Modictype II endplate changes, unchanged. Conus: Tip of the conus ends at L1. No cord compression. Soft Tissues: No prevertebral edema. Other Findings: Focal T2 hyperintensity seen in the left lower renal pole,probably cysts, grossly stable in size. Additional T2 hyperintensity inthe left renal interpolar region also probably a cyst. There is artifactobscuring the posterior portion of the kidneys bilaterally. There are [id number] noted on the right hepatic lobe measuring 6 mm,nonspecific. Findings by level: T12-L1: No spinal or foraminal stenosis. L1-L2: Minimal disc bulging. No spinal or foraminal stenosis. L2-L3: Disc bulge and mild facet joint arthropathy. Mild spinal canalstenosis. No hyper foraminal stenosis. L3-L4: Disc bulge with a right central disc protrusion. Facet jointarthropathy. Mild spinal canal stenosis. Minimal encroachment of theforamina. L4-L5: Disc/osteophyte complex, lateralizing toward the right. There is asmall left subarticular zone extrusion migrating caudally in contact withthe left L5 nerve roots, grossly. Facet joint arthropathy and ligamentumflavum. Mild spinal canal stenosis. Lqbo-mg-fxuwwigp bilateral foraminalstenosis. L5-S1: Disc bulge and facet arthropathy. No spinal or foraminalstenosis. IMPRESSION: 1. Degenerative disc disease and facet arthropathy at multiple levels,worse at L4-L5. 2. L4-L5 left subarticular zone disc extrusion, in contact with the leftL5 nerve roots. 3. Other degenerative changes, as above. 4. Right hepatic lobe T2 hyperintense focus/lesion, not wellcharacterized in this exam. Shayne Desouza DO IMG MR XSPECIALTY Final Resu lt documented in this encounter Visit Diagnoses Diagnosis Cervical disc disorder with myelopathy, unspecified cervical region- Primary Spondylosis without myelopathy or radiculopathy, lumbar region Spondylosis without myelopathy or radiculopathy, lumbar region Cervical disc disorder with myelopathy, unspecified cervical region documented in this encounter Care Teams Resident Advisor Relationship Specialty Start Date End Date Deneen Wheatley DO [address] [place] [id number] [email or web address] PCP - General Family Medicine 07/26/22 documented as of this encounter Additional Source Comments The information contained in this document represents components of the legal health record. It is not the complete legal health record.[facility]
--- OUTSIDE RECORDS SUMMARY | 2025-07-24 06:18 | XMS_ITS | Encounter Summary ---
Author Organization [facility] Address [address] [place] [address] Phone Care Team Providers Care Photo Studio Assistant Name Role Phone Blue Rojo MD Primary Care Provider Deneen Wheatley DO Primary Care Provider [phone] Deneen Wheatley DO Primary Care Provider Encounter Details Date Type Department Care Team (Late st Contact Info) Description 12/09/2019 Procedure Pass [facility] Endoscopy Admitting Dept Virtual Department [address] [place] [address] Social History Tobacco Use Types Packs/Day Years [...] Pulmonary, Allergy and Critical Care Medicine 10 [facility] [place] [address] Michael Marlow MD 10 [facility] 2nd [place] [address] [email or web address] 10/09/2025 9:40 AM EST Office Visit [facility] Rheumatology 22 [place] [address] Perla Cohn MD, MPH [address] [address] 10/22/2025 3:45 PM EST Appointment [facility], Bone Density - [facility] 30 [place] [address] Deneen Wheatley DO [address] [place] [address] 11/10/2025 1:15 PM EST Office Visit [facility] 10 [place] [address] Unknown, Unknown, Krysten Oliver, MOLD DRESSER [address] [address] [email or web address] documented as of this encounter Visit Diagnoses Not on filedocumented in this encounter Additional Health Concerns Infection Onset Date Last Indicated Resolved Time CoV-Risk 06/11/2020 06/12/2020 06/25/2020 1:23 AM EDT CoV-Risk Comment:Per note documentation 03/10/2023 03/10/2023 4:32 PM EDT documented as of this encounter Care Teams Photo Studio Assistant Relationship Specialty Start Date End Date Blue Rojo MD [email or web address] PCP - General 07/20/17 05/03/21 Deneen Wheatley DO PCP - General Family Medicine 05/04/21 07/25/22 Deneen Wheatley DO [address] [place] [phone] PCP - General Family Medicine 07/26/22 documented as of this encounter Additional Source Comments The information contained in this document represents components of the legal health record. It is not the complete legal health record.[facility]
--- OUTSIDE RECORDS SUMMARY | 2025-07-24 06:18 | XMS_ITS | Encounter Summary ---
Author Organization [facility] Address [address] [place] [address] Phone Care Team Providers Care Equine Dentist Name Role Phone Deneen Wheatley Primary Care Provider Encounter Details Date Type Department Care Team (Late st Contact Info) Description 07/01/2025 Procedure Pass [facility] Endoscopy Admitting Dept Virtual Department [address] [place] [address] Social History Tobacco Use Types Packs/Day Years [...] Date of Assessment Author No Risk Indicated 07/01/2025 10:37 AM Yamile Perrin RN * [place] Suicide Severity Rating Scale (Screener/Recent Self-Report) Question Answer Date of Assessment Author 1. Wish to be (Past 1 Month) No 07/01/2025 10:37 AM EDT Yamile Pino RN 2. Non-Specific Active Suicidal Thoughts (Past 1 Month) No 07/01/2025 10:37 AM EDT Yamile Pino RN 6. Suicidal Behavior (Lifetime) No 07/01/2025 10:37 AM EDT Yamile Pino RN documented as of this encounter Plan of Treatment Upcoming Encounters Date Type Department Care Team (Late st Contact Info) Description 10/03/2025 10:00 AM EST Office Visit [facility] Pulmonary, Allergy and Critical Care Medicine 10 [facility] [place] [address] Michael Marlow MD 10 [facility] 2nd [place] [address] [email or web address] 10/09/2025 9:40 AM EST Office Visit [facility] Rheumatology 22 [place] [address] Perla Cohn MD, MPH [address] [address] 10/22/2025 3:45 PM EST Appointment [facility], Bone Density - [address] [address] Deneen Wheatley DO [address] [place] [address] 11/10/2025 1:15 PM EST Office Visit [facility] Gastroenterology Clinic 10 [place] [address] Unknown, Unknown, Krysten Oliver, SOCIAL MEDIA DIRECTOR [address] [phone] [email or web address] documented as of this encounter Visit Diagnoses Not on filedocumented in this encounter Care Teams Equine Dentist Relationship Specialty Start Date End Date Deneen Wheatley DO [address] [place] [address] [email or web address] PCP - General Family Medicine 07/26/22 documented as of this encounter Additional Source Comments The information contained in this document represents components of the legal health record. It is not the complete legal health record.[facility]
--- OUTSIDE RECORDS SUMMARY | 2025-07-24 06:18 | XMS_ITS | Encounter Summary ---
Author Organization [facility] Address [address] [place] [address] Phone Care Team Providers Care Java Tech Name Role Phone Deneen Wheatley Primary Care Provider [phone] Encounter Details Date Type Department Care Team (Late st Contact Info) Description 06/14/2024 Procedure Pass [facility], Ct Scan - [address] [address] Social History Tobacco Use Types Packs/Day Years [...] Upcoming Encounters Date Type Department Care Team ([facility] st Contact Info) Description 10/03/2025 10:00 AM EST Office Visit [facility] Pulmonary, Allergy and Critical Care Medicine 10 [place] [address] Michael Marlow MD 10 [facility] 2nd [place] [address] [email or web address] 10/09/2025 9:40 AM EST Office Visit [facility] Rheumatology [address] [place] [address] Perla Cohn MD, MPH [address] [place] [address] [address] [place] [address] 10/22/2025 3:45 PM EST Appointment [facility], Bone Density [address] [address] Deneen Wheatley DO 70 [place] [address] 11/10/2025 1:15 PM EST Office Visit [facility] Gastroenterology Clinic 10 [place] [address] Unknown, Unknown, Krysten Oliver, LINUX SYSTEM ADMIN [address] [phone] [email or web address] documented as of this encounter Visit Diagnoses Not on filedocumented in this encounter Care Teams Java Tech Relationship Specialty Start Date End Date Deneen Wheatley DO [address] [place] [phone] [email or web address] PCP - General Family Medicine 07/26/22 documented as of this encounter Additional Source Comments The information contained in this document represents components of the legal health record. It is not the complete legal health record.[facility]
--- OUTSIDE RECORDS SUMMARY | 2025-07-24 06:18 | XMS_ITS | Encounter Summary ---
Author Organization [facility] Address [address] [place] [address] Phone Care Team Providers Care Mattress Spring Encaser Name Role Phone Deneen Wheatley Primary Care Provider Encounter Details Date Type Department Care Team (Late st Contact Info) Description 04/03/2024 Procedure Pass [facility], Ct Scan - [address] [address] Social History Tobacco Use Types Packs/Day Years [...] Upcoming Encounters Date Type Department Care Team ([facility] st Contact Info) Description 10/03/2025 10:00 AM EST Office Visit [facility] Pulmonary, Allergy and Critical Care Medicine 10 [place] [address] Michael Marlow MD 10 [facility] 2nd [place] [address] [email or web address] 10/09/2025 9:40 AM EST Office Visit [facility] Rheumatology [address] [place] [address] Perla Cohn MD, MPH [address] [place] [address] [address] [place] [address] 10/22/2025 3:45 PM EST Appointment [facility], Bone Density [address] [address] Deneen Wheatley DO 70 [place] [address] 11/10/2025 1:15 PM EST Office Visit [facility] Gastroenterology Clinic 10 [place] [address] Unknown, Unknown, Krysten Oliver, BRIDAL CONSULTANT [address] [phone] [email or web address] documented as of this encounter Visit Diagnoses Not on filedocumented in this encounter Care Teams Mattress Spring Encaser Relationship Specialty Start Date End Date Deneen Wheatley DO [address] [place] [address] [email or web address] PCP - General Family Medicine 07/26/22 documented as of this encounter Additional Source Comments The information contained in this document represents components of the legal health record. It is not the complete legal health record.[facility]
--- OUTSIDE RECORDS SUMMARY | 2025-07-24 06:18 | XMS_ITS | Clinical Summary ---
Author Organization [facility] Address [address] [place] [phone] Phone Care Team Providers Care Outside Solar Sales Consultant Name Role Phone Deneen Wheatley DO Primary Care Provider Allergies Active Allergy Reactions Criticality Noted Date Comments Bisacodyl Flushing High 01/30/2019 Severe diaphorsis and weakness Doxycycline Hyclate Nausea and/or Vomiting Medium 10/2018 Epinephrine Anaphylaxis,Arrhythm ia, Palpitations,Seizures,S hortness Of Breath High 02/03/1970 Nickel Acute Generalized Exanthematous Pustulosis Medium 09/12/2018 Omeprazole Nausea and/or Vomiting Medium 01/30/2019 Semaglutide 06/19/2025 Medications tranylcypromine (PARNATE) 10 mg tablet 30mg in morning and 30 mg in evening Active ALPRAZolam (XANAX) 0.5 MG tablet Take 0.5 mg by mouth 3 (three) times a day. Active vitamins A,C,E-zjmi-lhgsd r (PRESERVISION AREDS) 14,320-226-200 pdbg-hj-qsdj Cap Take 1 capsule by mouth 2 (two) times a day with meals. Active ibuprofen (ADVIL,MOTRIN) 200 MG tablet Take 400 mg by mouth every 6 (six) hours as needed for pain (specific location in comments). Active gabapentin (NEURONTIN) 300 MG capsule 4 (four) times a day. 4 Active ergocalciferol (DRISDOL) 50,000 unit capsule Take 50,000 Units by mouth 2 (two) times a week. 4 Active albuterol 90 mcg/actuation inhaler Inhale 2 puffs into the lungs 4 (four) times a day. Not using 4 Active acetaminophen (TYLENOL) [address] rectally 2 (two) times a day (once in the morning and once in the afternoon). 2 pills in the morning and 2 pills at night. Pt stated they don't know the dosage Active metFORMIN (GLUCOPHAGE) 500 MG immediate release tablet Take 1 tablet by mouth 2 (two) times a day. 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 Symptoms include intermittent wheezing, productive cough, and sensation of mucus in the chest, exacerbated by viral infections. Prior treatment with prednisone and azithromycin provided symptomatic relief. PFTs, most recently from 07/2024, without evidence of without evidence of airflow limitation or postbronchodilator change. COVID-19 may have caused residual inflammation and sensitivity in the airways, leading to asthma-like symptoms. At last visit, recommended trial of Airsupra for as needed for symptomatic relief, emphasizing the importance of minimizing steroid use due to potential side effects. Patient tried this on two occasions in the context of wheezing precipitated by an upper respiratory virus and setting of acute on chronic sinus congestion. She felt the Airsupra was ineffective and caused nausea/vomiting. Albuterol has also not been helpful historically. We discussed it is quite possible she either has very mild reactive airways disease or no reactive airways disease at all. The wheezing, typically in the setting of having a cold virus, she reports is typically audible and could be upper airway in origin. She also notes concomitant hoarseness of voice. Furthermore, she was previously seen by [facility] (Dr. Yasmin Jensen, last seen in 05/2021) with office stroboscopy revealing a benign appearing retention cyst on the left lingual surface of the epiglottis . It is unclear whether this cyst, in the setting of inflammation related to a cold virus and acute on chronic sinus congestion, could be causing her audible wheezing which is not improved by bronchodilator therapy. We discussed referral to ENT for further evaluation, but patient would like to think about this (she is not sure if she wants to be seen at the local practice and is also not sure whether she could travel down to [place]). Also discussed trying empiric therapies for chronic rhinitis such as Flonase or ipratropium nasal spray but she is not interested in trying these at present. Plan: - Patient encouraged to call if she were to become interested in either 1) referral to ENT for further evaluation of intermittent wheeze (suspicious for originating in the upper airway in the context of prior known retention cyst on epiglottis) and chronic rhinitis/rhinosinusitis or 2) trial of empiric treatment for chronic rhinitis - Defer further inhaler therapy for the time being - Follow-up interval PFTs - Encourage regular exercise, weight loss - Patient has an upcoming colonoscopy and upper endoscopy--her possible mild reactive airways disease and stable interstitial lung disease do not preclude her from undergoing these procedures (patient would be considered low risk for pulmonary complications resulting from sedation) and as such, no further pulmonary evaluation is necessary prior to these procedures being performed Assessment & Plan (10/16/2024 10:13 AM EST): Symptoms compatible with some degree of reactive airways disease/mild intermittent asthma, likely unmasked by COVID-19 infection in late 2022. Symptoms include intermittent wheezing, productive cough, and sensation of mucus in the chest, exacerbated by viral infections. Recent treatment with prednisone and azithromycin provided symptomatic relief. Upon examination today, her lungs are clear. Prior PFTs without evidence of without evidence of airflow limitation or postbronchodilator change. COVID-19 may have caused residual inflammation and sensitivity in the airways, leading to asthma-like symptoms. Recommended Airsupra as needed for symptomatic relief, emphasizing the importance of minimizing steroid use due to potential side effects. - Prescribe Airsupra (ICS/ARLEN) inhaler 2 puffs as needed (not to exceed 12 inhalations in 24 hours) - Provided certified hyperbaric technician coupon for Airsupra to reduce copay - Encourage regular exercise (patient started swimming again), weight loss - Patient has an upcoming colonoscopy and upper endoscopy--her mild reactive airways disease and stable interstitial lung disease do not preclude her from undergoing these procedures (patient would be considered low risk for pulmonary complications resulting from sedation) and as such, no further pulmonary evaluation is necessary prior to these procedures being performed - Schedule follow-up appointment in a few months to review symptoms and treatment response--patient was advised to contact the office in the interim if her symptoms were to worsen History of COVID-19 10/16/2024 Borderline low oxygen saturation level Assessment & Plan (01/10/2025 2:48 PM EDT): Per patient, at some point in the past she was noted to have oxygen levels in the high 80s in the context of a viral respiratory illness and suspected reactive airways disease exacerbation. She also has underlying mild interstitial lung disease and obesity likely plays a factor in this as well. SpO2 on room air at rest today remains within normal limits. She is at risk for low oxygen saturations in the future in the context of similar respiratory virus precipitated pulmonary exacerbations, and with underlying morbid obesity. As such, she was encouraged to check her oxygen levels periodically if she were to experience a similar situation in the future. This is in addition to the treatment plan outlined above. Assessment & Plan (10/16/2024 10:15 AM EST): Per patient, she was noted to have oxygen levels in the high 80s in the context of a viral respiratory illness and suspected reactive airways disease exacerbation. She also has underlying mild interstitial lung disease and obesity likely plays a factor in this as well. SpO2 95% on room air at rest today. She is at risk for low oxygen saturations in the future in the context of similar respiratory virus precipitated pulmonary exacerbations. As such, she was encouraged to check her oxygen levels periodically if she were to experience a similar situation in the future. This is in addition to the treatment plan outlined above. Elevated alkaline phosphatase level 10/09/2024 Overview (10/09/2024): Since 2018 [facility]Y Elevated sed rate 10/09/2024 Overview (10/09/2024): Latest Reference Range & Units 04/02/20 10:57 08/02/22 10:28 10/02/22 12:01 12/19/23 16:04 ESR 0 - 30 mm/h 43 (H) 28 37 (H) 56 (H) Assessment & Plan (10/09/2024 12:45 PM EST): Current clinical picture not c/w underlying rheumatic disease despite chronically elevated inflammatory markers. Dry mouth 10/09/2024 Overview (10/09/2024): SSA/SSB neg/neg 12/2023; no dry eye Assessment & Plan (10/09/2024 12:46 PM EST): True Sjogren's clinically unlikely but will repeat serologies given RF elevation Elevated rheumatoid factor 10/09/2024 Overview (10/09/2024): 12/2023 RF 58 anti-CCP neg Assessment & Plan (10/09/2024 12:53 PM EST): No clear pattern of AM stiffness; no synovitis or joint effusion on exam today. Patient will contact me if any significant change from baseline joint sxs prior to scheduled f/u. Chronic generalized pain 04/03/2024 Assessment & Plan (10/09/2024 12:52 PM EST): Chronic generalized pain of muscles / joints / skin in this woman with [treated] depression, previously dx'd right peroneal neuropathy on gabapentin, and recent dx of hyperPTH. DDx includes small fiber neuropathy versus fibromyalgia; hyperPTH may also be contributing to generalized pain. Unfortunately duloxetine trial is contraindicated given current MAO-I. Again, no specific e/o underlying or co- morbid inflammatory arthritis and therefore I have no rheumatology-specific intervention to offer this patient. I have provided written information on fibromyalgia for patient review today. She may benefit from f/u with her established neurologist to discuss w/u for possible small fiber neuropathy though even confirmation of this dx may not change current mgmt. Assessment & Plan (04/03/2024 9:24 AM EDT): Chronic joint pain in the context of chronic, non-specifically elevated inflammatory markers and positive RF (with negative CCP). Previously, [facility], in addition to local orthopedics and rheumatology. Has significant sensitivity/pain all over her body and notes it feels like I have ground glass all over my body . Will refer back to rheumatology for interim evaluation. Interstitial lung disease 04/03/2024 Assessment & Plan (01/10/2025 2:16 PM EDT): Chronic mild scarring in the lungs, potentially from prior COVID-19 infection or pneumonia. Mild, indeterminate for UIP pattern. Prior, extensive serologic evaluation was unrevealing. Has a history of GERD, currently asymptomatic and not presently on antisecretory therapy. HRCT chest and PFTs from 07/23/2024 showed no significant changes compared to prior studies. Stable, mild restrictive physiology and mild diffusion impairment noted on PFTs (some of which could be attributed to body habitus). No evidence of progression to date. Explained that her interstitial lung changes are mild and appear less likely to worsen over time. Plan to follow with CT chest and PFTs in July 2025 to monitor for any changes. - Follow-up chest CT, ordered to be performed in July 2025 (approximately 1 year from prior) - Follow-up PFTs, ordered to be performed in July 2025 (approximately 1 year from prior) Assessment & Plan (10/16/2024 10:17 AM EST): Chronic mild scarring in the lungs, potentially from prior COVID-19 infection or pneumonia. Mild, indeterminate for UIP pattern. Prior, extensive serologic evaluation was unrevealing. Has a history of GERD, currently asymptomatic and not presently on antisecretory therapy. HRCT chest and PFTs from 07/23/2024 showed no significant changes compared to prior studies. Stable, mild restrictive physiology and mild diffusion impairment noted on PFTs (some of which could be attributed to body habitus). No evidence of progression to date. Explained that her interstitial lung changes are mild and appear less likely to worsen over time. Plan to follow up with CT chest and PFTs in July 2025 to monitor for any changes. - Order chest CT in July 2025 (approximately 1 year from prior) - Order PFTs in July 2025 (approximately 1 year from prior) Assessment & Plan (10/09/2024 12:44 PM EST): Most recent pulm note reviewed; no specific objective evidence to date to confirm underlying inflammatory arthritis or autoimmune connective tissue disease. Repeat selected labs for trend with next routine lab draw; will monitor clinically. Shortness of breath 12/19/2023 Assessment & Plan (04/03/2024 9:40 AM EDT): Mild exertional shortness of breath. Patient is a former smoker and quit 35+ years prior to initial pulmonary evaluation. No overt emphysematous changes on chest CT. Possible etiologies for shortness of breath include early interstitial lung disease, and deconditioning in the context of morbid obesity and chronic knee pain. PFTs from 01/2024 without airflow limitation. She continues to be quite functionally limited by chronic pain and joint issues. -Evaluation of abnormal chest CT, as below -Encourage exercise as tolerated, weight loss Assessment & Plan (12/19/2023 4:03 PM EDT): Mild exertional shortness of breath. No prior PFTs available for review. Patient is a former smoker and quit 35+ years prior to initial pulmonary evaluation. No overt emphysematous changes on chest CT. Possible etiologies for shortness of breath include chronic obstructive lung disease, possible early interstitial lung disease, and deconditioning in the context of morbid obesity and chronic knee pain. -Obtain PFTs -Evaluation of abnormal chest CT, as below -If pulmonary evaluation is unrevealing, could consider cardiac evaluation in the future -Encourage exercise, weight loss Abnormal chest CT 12/19/2023 Assessment & Plan (04/02/2024 8:32 PM EDT): Chest CT from 10/19/2023 which was ordered for evaluation of chest burning (which spontaneously resolved) demonstrated mild bilateral subpleural reticulation with minimal patchy airspace opacities, most prominently in the right upper lobe, without overt bronchiectasis or honeycombing. Also noted on this study are mildly prominent right hilar and mediastinal lymph nodes, possibly reactive in etiology. Early fibrotic interstitial lung disease is possible. Notably, patient had COVID in late 2022 and remotely has had pneumonia, both of which could have resulted in some residual scarring. Upon reviewing CT abdomen from 11/21/2021, visualized lung bases were similarly unremarkable. Lastly, these interstitial lung parenchymal findings could perhaps related to the sequela of microaspiration in the setting of known GERD (presently, patient is asymptomatic and discontinued H2 arcenio and PPI therapy). Serologic ILD evaluation from 12/2023 essentially unrevealing or with nonspecific findings. PFTs from 01/2024 with mild restriction and a mild diffusion impairment, not significantly changed from prior study in 07/2017. HRCT chest from 01/19/2024 with unchanged (when compared to 3 months prior) with a mild, indeterminate for UIP pattern. In summary, patient has mild interstitial lung changes which could reflect early fibrotic interstitial lung disease. Her mild restrictive physiology and mild diffusion impairment, in addition to her shortness of breath, are most likely related to body habitus in the context of morbid obesity, but cannot exclude contributions from mild interstitial lung disease. Will monitor PFTs, chest CT, and symptoms over time. Presently, with 3 month stability on imaging and PFTs stable since 2016. Plan: -Obtain interval chest CT and PFTs 6 months from prior -If there is interval change on imaging, would discuss pursuing bronchoscopy -Ongoing GI management of GERD--presently, patient is not currently taking H2 arcenio therapy or PPI in the context of not experiencing overt reflux symptoms Assessment & Plan (12/19/2023 4:08 PM EDT): Chest CT from 10/19/2023 which was ordered for evaluation of chest burning (which spontaneously resolved) demonstrated mild bilateral subpleural reticulation with minimal patchy airspace opacities, most prominently in the right upper lobe, without overt bronchiectasis or honeycombing. Also noted on this study are mildly prominent right hilar and mediastinal lymph nodes, possibly reactive in etiology. Early fibrotic interstitial lung disease is possible. Notably, patient had COVID in late 2022 and remotely has had pneumonia, both of which could have resulted in some residual scarring. Upon reviewing CT abdomen from 11/21/2021, visualized lung bases were similarly unremarkable. Lastly, these interstitial lung parenchymal findings could perhaps related to the sequela of microaspiration in the setting of known GERD (presently, patient is asymptomatic and discontinued H2 arcenio and PPI therapy). -Obtain interval chest CT 3 months from prior (approximately 01/18/2024) to follow the interstitial lung changes and mild lymphadenopathy -Obtain baseline PFTs as above -Serologic workup for interstitial lung disease: CBC with differential, BMP, LFTs, AL, ANCA, RF, anti-CCP, CK, aldolase, Scl-70, Stephanie-1, SS-A, SS-B, U1RNP and Ricks, myositis panel, hypersensitivity pneumonitis screen, ESR, CRP, HIV -Ongoing GI management of GERD--presently, patient is not currently taking H2 arcenio therapy or PPI in the context of not experiencing overt reflux symptoms Throat pain in adult 05/04/2021 Arthralgia of both lower legs 05/04/2021 Overview (05/04/2021): Possible complex regional pain symdrome, incompletely documented by [facility] in our records Morbid obesity with BMI of 45.0-49.9, adult 01/2020 Chronic knee pain after tota l replacement of right knee joint 05/05/2020 Hx of fall 05/05/2020 Overview (05/05/2020): Onto low back, with no right total knee problems prior to that S/P total knee replacement using cement, right 0 02/18/2019 Hypothyroid 10/28/2018 Assessment & Plan (10/28/2018 7:25 AM EST): Recently diagnosed with hypothyroidism by her PCP. Has not started the medication yet. Does not want to start it here in the hospital Cholecystitis 10/25/2018 Assessment & Plan (10/28/2018 4:14 PM EST): Patient presented with abnormal LFTs leukocytosis and a 1 month history of abdominal discomfort RUQ ultrasound showed gallbladder wall thickening with pericholecystic fluid , stones and sludge At that point she was diagnosed with cholecystitis. Surgery was consulted. She was placed on antibiotics Patient had cholecystectomy Next day-Monday Tolerated clears postop. Diet advanced to regular first post op day Tolerating full diet. She does have flatus but no stool yet. LFTs are improving she does not want to discharge today Anxiety and depression 10/25/2018 Assessment & Plan (10/26/2018 4:32 PM EST): She has a long-standing history of anxiety and depression. Has been on an MAOI inhibitor Parnate since her 30s. 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 Encounters Date Type Department Care Team Description 07/21/2025 9:19 AM EDT - 07/21/2025 11:59 PM EDT Hospital Encounter [facility], Ct Scan - [address] [address] Michael Marlow MD Arrived Discharge Disposition: Home or Self Care 07/21/2025 8:10 AM EDT - 07/21/2025 9:18 AM EDT Hospital Encounter [facility] [address] [place] [id number] Michael Marlow MD Arrived Discharge Disposition: Home or Self Care 07/08/2025 Transcribe Orders [facility] [address] [place] [address] Michael Marlow MD 07/01/2025 12:00 PM EDT - 07/01/2025 12:15 PM EDT Surgery [facility] Admitting Dept Virtual Department [address] [place] [phone] Laci Noguera MD ESOPHAGOGASTRODUODENOSCOPY 07/01/2025 10:53 AM EDT Anesthesia Event [facility] Admitting [facility] Virtual Department [address] [place] [id number] Ray Dave MD 07/01/2025 10:14 AM EDT - 07/01/2025 11:46 AM EDT Hospital Encounter [facility] Virtual Department [address] [place] [phone] Laci Noguera MD Discharge Disposition: Home or Self Care 07/01/2025 Procedure Pass [facility] Admitting [facility] Virtual Department [address] [place] [phone] 06/27/2025 9:00 AM EDT Pre-Admission Testing Pre Procedure Evaluation [address] [place] [phone] Laci Noguera MD 06/19/2025 11:02 AM EDT - 06/19/2025 2:47 PM EDT Emergency [facility] [address] [place] [phone] Discharge Disposition: Home or Self Care 06/19/2025 Procedure Pass [address] [id number] 06/12/2025 Telephone [facility] Allergy [facility] Critical Care Medicine [address] [place] [address] Pamela Black Clearance 10/16/2024 Procedure Pass [address] [address] from Last 3 Months Immunizations Immunization Administration Dates Next Due Pneumococcal conjugate PCV13 10/29/2018(Deferred : Patient Refused) Social History Tobacco Use Types Packs/Day Years Used Date Smoking Tobacco: Former Cigarettes Q uit: 10/02/1987 Passive Smoke Exposure: Past Smokeless Tobacco: Never Tobacco Cessation:Counseling Given: Not Answered Alcohol Use Standard Drinks/Week Comments No 0 [...] Orientation Straight 10/25/2018 1: 50 PM EST Last Filed Vital Signs Vital Sign Reading Time Taken Comments Blood Pressure 135/74 07/01/2025 11:35 AM EDT Pulse 72 07/01/2025 11:35 AM EDT Temperature 36 C (96.8 F) 07/01/2025 11:19 AM EDT Respiratory Rate 16 07/01/2025 11:35 AM EDT Oxygen Saturation 96% 07/01/2025 11:35 AM EDT Inhaled Oxygen Concentration - - Weight 113.4 kg (250 lb) 06/19/2025 10:59 AM EDT Height 160 cm (5' 3 ) 06/19/2025 10:59 AM EDT Body Mass Index 44.29 06/19/2025 10:59 AM EDT Plan of Treatment Upcoming Encounters Date Type Department Care Team (Late st Contact Info) Description 10/03/2025 10:00 AM EST Office Visit [facility] [address] [facility] [place] [address] Michael Marlow MD [address] [facility] 2nd [place] [address] [email or web address] 10/09/2025 9:40 AM EST Office Visit [facility] [address] [place] [phone] Perla Cohn MD, MPH [address] [facility], [address] [place] [address] 10/22/2025 3:45 PM EST Appointment [facility], Bone Density - [facility] [address] [place] [address] Deneen Wheatley DO [address] [place] [address] 11/10/2025 1:15 PM EST Office Visit [facility] [address] [place] [address] Unknown, Unknown, Krysten Oliver, CORPORATE ATTORNEY [address] [address] [email or web address] Health Maintenance Due Date Last Done Comments LIPID PANEL 1951 DEPRESSION SCREENING 1963 HEPATITIS C SCREENING 1969 MAMMOGRAM 1991 COLOGUARD 1996 FIT TEST 1996 FOBT 1996 SIGMOIDOSCOPY 1996 VIRTUAL COLONOSCOPY 1996 RSV VACCINE (1 - Risk 50-74 years 1-dose series) 2001 ZOSTER VACCINES (1 of 2) 2001 OSTEOPOROSIS SCREENING INITIAL (ONE-TIME) 2016 PNEUMOCOCCAL VACCINES (50+ years) (2 of 2 - PPSV23) 11/23/2017 09/28/2017 INFLUENZA VACCINE (#1) 2025 COVID-19 VACCINE (4 - 2024- season) 2025 10/23/2021, 04/06/2021, 03/09/2021 CREATININE LEVEL 06/19/2026 06/19/2025, , 03/10/2023, Additional history exists SMOKING Hx and SMOKELESS TOBACCO SCREENING 07/01/2026 07/01/2025 Adult Td,Tdap Booster 08/22/2027 08/22/2017, 010 COLONOSCOPY 07/01/2035 07/01/2025, 12/09/2019 COLORECTAL CANCER SCREENING 07/01/2035 HEPATITIS A VACCINES Aged Out No long er eligible based on patient's age to complete this topic HIB VACCINES Aged Out No longer eligi ble based on patient's age to complete this topic MENINGOCOCCAL VACCINES (ACWY) Aged Out No longer eligible based on patient's age to complete this topic MENINGOCOCCAL VACCINES (B) Aged Out N o longer eligible based on patient's age to complete this topic Medical Devices Implanted Type Area Job Press Feeder Device Identifier Shelf Expiration Date Model / Serial / Lot Cement Bone Biomet Standard R 1x40 Us - [id number] Implanted:Qty: 2 on 02/18/2019 by Wero Dominique MD at [facility] Right: Knee SERENE / DIV OF BRISTOL SQUIBB 03/01/2023 [id number] / / [id number] Button Patella 38x10gu Knee Vanguard Uhmwpe Single Peg Series A Standard - [id number] Implanted:Qty: 1 on 02/18/2019 by Wero Dominique MD at [facility] Right: Knee [employer] 01/01/2024 [id number] / / [id number] Knee Component 67.5mm Femoral Cruciate Vanguard Titanium Retaining Right - [id number] Implanted:Qty: 1 on 02/18/2019 by Wero Dominique MD at [facility] Right: Knee SERENE / DIV [employer] BRISTOL SQUIBB 2027 [id number] / / [id number] Tray 71mm Tibial Knee Vanguard Total Titanium Primary Interlock Cemented - [id number] Implanted:Qty: 1 on 02/18/2019 by Wero Dominique MD at [facility] Right: Knee [employer] 12/15/2028 [id number] / / [id number] Beam I L 40mm Od 10 Field Service Rep Stem Knee Prmary Stablzed Fnned Mpl Ascent Maxm - [id number] Implanted:Qty: 1 on 02/18/2019 by Wero Dominique MD at [facility] Right: Knee [employer] 02/01/2029 [id number] / / [id number] Knee Tibial Bearing E1 Vanguard Crl 71/75 X 14 Knee 08 - Discontinued Per Tjr Vat - [id number] Implanted:Qty: 1 on 02/18/2019 by Wero Dominique MD at [facility] Right: Knee [employer] 10/24/2023 [id number] / / [id number] Procedures Procedure Name Priority Date/Time Associated Diagnosis Comments PULMONARY FUNCTION TEST Routine 07/21/20 9:19 AM EDT Interstitial lung disease OK COLSC FLX W/RMVL OF TUMOR POLYP LESION SNARE TQ 07/01/2025 10:52 AM EDT Gastroesophagea l reflux disease with esophagitis, unspecified whether hemorrhage Colon cancer screening Special Needs NIDDM(on Metformin-instructed by office); 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; recent kidney stone OK COLONOSCOPY W/BIOPSY SINGLE/MULTIPLE 07/01/2025 10:52 AM EDT Gastroesophagea l reflux disease with esophagitis, unspecified whether hemorrhage Colon cancer screening Special Needs NIDDM(on Metformin-instructed by office); 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; recent kidney stone OK COLONOSCOPY FLX DX W/TRACY J SPEC WHEN PFRMD 07/01/2025 10:52 AM EDT Gastroesophagea l reflux disease with esophagitis, unspecified whether hemorrhage Colon cancer screening Special Needs NIDDM(on Metformin-instructed by office); 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; recent kidney stone OK EGD ABLATE TUMOR POLYP/LESION W/DILATION& WIRE 07/01/2025 10:52 AM EDT Gastroesophagea l reflux disease with esophagitis, unspecified whether hemorrhage Colon cancer screening Special Needs NIDDM(on Metformin-instructed by office); 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; recent kidney stone OK EDG TRANSORAL BIOPSY SINGLE/MULTIPLE 07/01/2025 10:52 AM EDT Gastroesophagea l reflux disease with esophagitis, unspecified whether hemorrhage Colon cancer screening Special Needs NIDDM(on Metformin-instructed by office); 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; recent kidney stone OK ESOPHAGOGASTRODUODENOSCOP Y TRANSORAL DIAGNOSTIC 07/01/2025 10:52 AM EDT Gastroesophagea l reflux disease with esophagitis, unspecified whether hemorrhage Colon cancer screening Special Needs NIDDM(on Metformin-instructed by office); 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; recent kidney stone ENDOSCOPY PROCEDURE 07/01/2025 10:49 AM EDT ENDOSCOPY, COLON 07/01/2025 10:48 AM EDT ANATOMIC PATHOLOGY Routine 07/01/2025 12:[address] ABDOMEN/PELVIS WITH CONTRAST Routine 06/19/2025 12:51 PM EDT URINE SEDIMENT STAT 06/19/2025 11:32 AM EDT URINALYSIS W/REFLEX URINE CULTURE STAT 06/19/2025 11:32 AM EDT LIPASE STAT 06/19/2025 11:26 AM EDT LFTS (HEPATIC PANEL) STAT 06/19/2025 11:26 AM EDT BASIC METABOLIC PANEL STAT 06/19/2025 11:26 AM EDT CBC AND DIFFERENTIAL STAT 06/19/2025 11:26 AM EDT from Last 3 Months Results * Pulmonary Function Test Reason for Exam: Asthma, Interstitial Lung Disease; Type of PFT Test: Spirometry with bronchodilator, DLCO, Lung Volumes; Performing Location: [facility] (07/21/2025 9:19 AM EDT) FEV1 1.73 liters [...] limitation. Technical Note: As of 08/13/2024, the [facility] Pulmonary Function Testing (PFT) Laboratory transitioned from [...] please contact the interpreting physician or PFT laboratory manager. For further discussion of this issue please see Iwona et jeff [facility] 2022;[phone]. Please Note: Not all PFT labs within, or outside of, our system will be transitioning to new reference equations at the same time. For this reason, please pay close attention to absolute values when comparing results done at different testing locations within or outside of our system. us Michael Marlow MD PFT ORDERABLES Final Result * ENDOSCOPY PROCEDURE (07/01/2025 10:49 AM EDT) Narrative Transcriptions Laci Noguera MD - 07/01/2025 10:49 AM EDT [facility] Patient Name: Maxine Ivan Attending MD:: LACI NOGUERA MD, , Procedure Date: 07/01/2025 10:49 AM Date of : 1950 Age: 75 Admit Type: Outpatient Gender: Female Room: [place] [address] Referring MD: Deneen Wheatley Exam Type: Upper GI endoscopy Indications: Heartburn Medications: Monitored Anesthesia Care Procedure: Informed consent was obtained from the patientafter discussion of the indications, limitations, alternatives, benefits, and risks of the procedure. Risks specifically discussed include but are not limited to medication reactions, missed lesions, bleeding, perforation, or the need for emergent surgery. Throughout the procedure, the patient's blood pressure, pulse, end-tidal CO2, and oxygensaturations were monitored continuously. The Endoscope was introduced through the mouth, and advanced to the second part of duodenum. The upperGI endoscopy was accomplished without difficulty. The patient tolerated the procedure well. Complications: No immediate complications. Estimated blood loss: Minimal. Findings: The examined duodenum was normal. Localized mildly erythematous mucosa withoutbleeding was found in the gastric antrum. Biopsies weretaken with a cold forceps for histology. A small hiatal hernia was present. The exam of the stomach was otherwise normal. LA Grade A (one or more mucosal breaks less than 5mm, not extending between tops of 2 mucosal folds) esophagitis with no bleeding was found. Biopsieswere taken with a cold forceps for histology. The exam of the esophagus was otherwise normal. Impression: - Normal examined duodenum. - Erythematous mucosa in the antrum. Biopsied. - Small hiatal hernia. - LA Grade A esophagitis with no bleeding.Biopsied. Recommendation: - Await pathology results. - Return to GI office. LACI NOGUERA MD, 07/01/2025 11:14:56 AM This report has been signed electronically. Number of Addenda: 0 Note Initiated On: 07/01/2025 10:49 AM Procedure Code(s): --- Professional --- 53187, Esophagogastroduodenoscopy, flexible, transoral; with biopsy, single or multiple --- Technical --- 23198, Esophagogastroduodenoscopy, flexible, transoral; with biopsy, single or multiple Diagnosis Code(s): --- Professional --- K31.89, Other diseases of stomach and duodenum K44.9, Diaphragmatic hernia without obstruction or gangrene K20.90, Esophagitis, unspecified without bleeding R12, Heartburn --- Technical --- K31.89, Other diseases of stomach and duodenum K44.9, Diaphragmatic hernia without obstruction or gangrene K20.90, Esophagitis, unspecified without bleeding R12, Heartburn CPT copyright 2021 [employer]. All rights reserved. The codes documented in this report are preliminary and upon manager acquisition reviewmay be revised to meet current compliance requirements. Procedure Date: 07/01/2025 10:49:[address] [place] [id number] us Deneen Wheatley DO GI PROCEDURE ORDERABLES Latonia camarena Result * ENDOSCOPY, COLON (07/01/2025 10:48 AM EDT) Narrative Transcriptions Laci Noguera MD - 07/01/2025 10:48 AM EDT [facility] Patient Name: Maxine Suzi Attending MD:: LACI NOGUERA MD, , Procedure Date: 07/01/2025 10:48 AM Date of : 1950 Age: 75 Admit Type: Outpatient Gender: Female Room: [place] [address] Referring MD: Deneen Wheatley Exam Type: Colonoscopy Indications: High risk colon cancer surveillance: Personalhistory of colonic polyps Medications: Monitored Anesthesia Care Procedure: Informed consent was obtained from the patientafter discussion of the indications, limitations, alternatives, benefits, and risks of the procedure. Risks specifically discussed include but are not limited to medication reactions, missed lesions, bleeding, perforation, or the need for emergent surgery. Throughout the procedure, the patient's blood pressure, pulse, end-tidal CO2, and oxygensaturations were monitored continuously. The Colonoscope was introduced through the anus and advanced to the cecum, identified by appendiceal orifice and ileocecal valve. The colonoscopy was performed without difficulty. The patient tolerated the procedure well. The quality of the bowel preparation was excellent. The quality of the bowel preparation was evaluated using the BBPS (BostonBowel Preparation Scale) with scores of: Right Colon = 3, Transverse Colon = 3 and Left Colon = 3 (entiremucosa seen well with no residual staining, smallfragments of stool or opaque liquid). The total BBPS score equals 9. Anatomical landmarks were photographed. Complications: No immediate complications. Estimated blood loss: Minimal. Findings: The perianal and digital rectal examinations were normal. Two sessile polyps were found in the descendingcolon. The polyps were 3 to 6 mm in size. These polypswere removed with a cold snare. Resection and retrieval were complete. Scattered small and large-mouthed diverticula were found in the sigmoid colon and descending colon. The exam was otherwise normal throughout theexamined colon. Impression: - Two 3 to 6 mm polyps in the descending colon, removed with a cold snare. Resected andretrieved. - Mild diverticulosis in the sigmoid colon and inthe descending colon. Recommendation: - Discharge patient to home. - Await pathology results. LACI NOGUERA MD, 07/01/2025 11:16:57 AM This report has been signed electronically. Number of Addenda: 0 Note Initiated On: 07/01/2025 10:48 AM Procedure Code(s): --- Professional --- 86042, Colonoscopy, flexible; with removal of tumor(s), polyp(s), or other lesion(s) by snare technique --- Technical --- 15069, Colonoscopy, flexible; with removal of tumor(s), polyp(s), or other lesion(s) by snare technique Diagnosis Code(s): --- Professional --- Z86.010, Personal history of colonic polyps D12.4, Benign neoplasm of descending colon K57.30, Diverticulosis of large intestine without perforation or abscess without bleeding --- Technical --- Z86.010, Personal history of colonic polyps D12.4, Benign neoplasm of descending colon K57.30, Diverticulosis of large intestine without perforation or abscess without bleeding CPT copyright 2021 [employer]. All rights reserved. The codes documented in this report are preliminary and upon manager acquisition reviewmay be revised to meet current compliance requirements. Procedure Date: 07/01/2025 10:48:[address] [place] [id number] us Deneen Garciaa DO GI PROCEDURE ORDERABLES Latonia l Result * Anatomic Pathology (07/01/2025 12:00 AM EDT) 07/01/2025 07/01/2025 1:2 6 PM EDT Narrative SEE NARRATIVE - 07/02/2025 2:38 PM EDT [address] [address] Playground Worker: Jorge Bedolla MD Surgical Pathology Report FINAL PATHOLOGIC DIAGNOSIS: A. STOMACH, BIOPSY: No pathologic abnormalities. B. GASTROESOPHAGEAL JUNCTION BIOPSY: No pathologic abnormalities. C. DESCENDING COLON POLYP: Adenomatous polyp. Electronically Signed Out By Margarita Dominguez MD By his/her signature above, the pathologist listed as making the Final Diagnosis certifies that he/she has personally reviewed this case and confirmed or corrected the diagnosis. CLINICAL HISTORY Gastroesophageal reflux disease with esophagitis, unspecified whether hemorrhage [K21.00] Colon cancer screening [Z12.11] SPECIMENS SUBMITTED: A: STOMACH, BIOPSY B: GASTROESOPHAGEAL JUNCTION BIOPSY C: DESCENDING COLON POLYP GROSS DESCRIPTION A. STOMACH, BIOPSY: Received in formalin are 2 irregular wyatt-pink soft tissue fragments measuring 0.2 x 0.2 x 0.2 cm and 0.4 x 0.3 x 0.2 cm which are submitted in toto in a single cassette labeled A1. B. GASTROESOPHAGEAL JUNCTION BIOPSY: Received in formalin is a 0.3 x 0.3 x 0.2 cm irregular portion of wyatt-pink soft tissue which is submitted in toto in a single cassette labeled B1. C. DESCENDING COLON POLYP: Received in formalin are 2 irregular wyatt-pink mucosal tissue fragments measuring 0.5 x 0.4 x 0.2 cm and 0.7 x 0.4 x 0.2 cm which are submitted in toto in a single cassette labeled C1. Grossed by: JOCELIN Canas PA(ASCP) [id number] 07/01/2025 Grossing Staff: [id number] Patient Name: MAXINE IVAN : 1950 (Age: 75) Sex: F [facility]: 07/01/2025 Date of Reported: 07/02/2025 14:38 Results To: Laci Noguera MD, BS, Deneen Wheatley us Laci Noguera MD PATHOLOGY ORDERABLES Final Resul t SEE NARRATIVE * CT ABDOMEN/PELVIS WITH CONTRAST (06/19/2025 12:51 PM EDT) Anatomical Region Laterality Modality Abdomen, Pelvis Computed Tomogra phy 06/19/2025 1:52 PM EDT Impressions 06/19/2025 2:08 PM EDT 1. A 4 mm stone at the right ureterovesical junction resulting in minimal hydroureter and mild hydronephrosis. This may still be within the ureterovesical junction or may have passed into the bladder. 2. Additional 3 mm nonobstructing stone in the interpolar region of the left kidney. Narrative 06/19/2025 2:[address] ABDOMEN/PELVIS WITH CONTRAST Referring clinician's provided indication for this examination in Epic: RLQ abdominal pain, appendicitis suspected (Age >= 14y); appendicitis vs kidney stone TECHNIQUE: Multidetector-row CT of the abdomen and pelvis was performed after administration of intravenous contrast using tailored dose modulation techniques. Images were reconstructed in the axial, coronal, and sagittal planes. COMPARISON: CT ABDOMEN/PELVIS WITHOUT CONTRAST ; US ABDOMEN LIMITED RIGHT UPPER QUADRANT ; CT ABDOMEN WITH CONTRAST ; CT CHEST WITHOUT CONTRAST FINDINGS: Lower Chest: Unchanged subpleural reticular opacities and mild bronchiectasis, which most likely represent chronic interstitial lung disease. No consolidation or pleural effusions. Liver: Diffuse hypoattenuation of the liver suggestive of hepatic steatosis. Unchanged hypodense lesion in the right lobe, which most likely represents a cyst. Biliary: Status post cholecystectomy. Mild intrahepatic and extrahepatic biliary ductal dilation, which is likely secondary to reservoir effect from cholecystectomy. Spleen: No splenomegaly. Unchanged scattered hypodense lesions, which are incompletely characterized but most likely represent cysts or lymphangiomas. Calcified granuloma. Pancreas: Atrophic pancreas. No mass, pancreatic ductal dilation or peripancreatic fat stranding. Adrenal Glands: Unchanged 1.4 cm nodule in the right adrenal gland, which most likely represents an adenoma. No left adrenal nodule. Kidneys/Ureters/Bladder: A 4 mm stone at the right ureterovesical junction resulting in minimal hydroureter, mild hydronephrosis and a delayed nephrogram. Mild right perinephric fat stranding. Additional 3 mm nonobstructing stone in the interpolar region of the left kidney. Left renal cysts. Additional subcentimeter hypodense lesions in both kidneys, which are too small to characterize but also most likely represent renal cysts. Normal bladder. Bowel: Small hiatal hernia. Normal small bowel. Colonic diverticulosis without evidence of diverticulitis. Normal appendix. Peritoneum/Retroperitoneum: No pneumoperitoneum or free fluid. Lymph Nodes: No lymphadenopathy. Pelvic Organs: No mass. Small uterine fibroids. Vessels: Mild atherosclerotic disease. No abdominal aortic aneurysm. Prominence of the periuterine veins. Bones/Soft Tissues: No acute fracture or suspicious osseous lesion. Mild to moderate multilevel degenerative changes of the spine, which are most pronounced at L4-5. Partially visualized dextroscoliosis of the thoracic spine. Small fat-containing umbilical hernia. Procedure Note Durga Samayoa MD - 06/19/2025 CT ABDOMEN/PELVIS WITH CONTRAST Referring clinician's provided indication for this examination in [facility]:RLQ abdominal pain, appendicitis suspected (Age >= 14y); appendicitis vskidney stone TECHNIQUE: Multidetector-row CT of the abdomen and pelvis was performedafter administration of intravenous contrast using tailored dosemodulation techniques. Images were reconstructed in the axial, coronal,and sagittal planes. COMPARISON: CT ABDOMEN/PELVIS WITHOUT CONTRAST ; US ABDOMENLIMITED RIGHT UPPER QUADRANT ; CT ABDOMEN WITH [id number]; CT CHEST WITHOUT CONTRAST FINDINGS: Lower Chest: Unchanged subpleural reticular opacities and mildbronchiectasis, which most likely represent chronic interstitial lungdisease. No consolidation or pleural effusions. Liver: Diffuse hypoattenuation of the liver suggestive of hepaticsteatosis. Unchanged hypodense lesion in the right lobe, which most likelyrepresents a cyst. Biliary: Status post cholecystectomy. Mild intrahepatic and extrahepaticbiliary ductal dilation, which is likely secondary to reservoir effectfrom cholecystectomy. Spleen: No splenomegaly. Unchanged scattered hypodense lesions, which areincompletely characterized but most likely represent cysts orlymphangiomas. Calcified granuloma. Pancreas: Atrophic pancreas. No mass, pancreatic ductal dilation orperipancreatic fat stranding. Adrenal Glands: Unchanged 1.4 cm nodule in the right adrenal gland, whichmost likely represents an adenoma. No left adrenal nodule. Kidneys/Ureters/Bladder: A 4 mm stone at the right ureterovesical junctionresulting in minimal hydroureter, mild hydronephrosis and a delayednephrogram. Mild right perinephric fat stranding. Additional 3 mmnonobstructing stone in the interpolar region of the left kidney. Leftrenal cysts. Additional subcentimeter hypodense lesions in both kidneys,which are too small to characterize but also most likely represent renalcysts. Normal bladder. Bowel: Small hiatal hernia. Normal small bowel. Colonic diverticulosiswithout evidence of diverticulitis. Normal appendix. Peritoneum/Retroperitoneum: No pneumoperitoneum or free fluid. Lymph Nodes: No lymphadenopathy. Pelvic Organs: No mass. Small uterine fibroids. Vessels: Mild atherosclerotic disease. No abdominal aortic aneurysm.Prominence of the periuterine veins. Bones/Soft Tissues: No acute fracture or suspicious osseous lesion. Mildto moderate multilevel degenerative changes of the spine, which are mostpronounced at L4-5. Partially visualized dextroscoliosis of the thoracicspine. Small fat-containing umbilical hernia. IMPRESSION: 1. A 4 mm stone at the right ureterovesical junction resulting in minimalhydroureter and mild hydronephrosis. This may still be within theureterovesical junction or may have passed into the bladder. 2. Additional 3 mm nonobstructing stone in the interpolar region of theleft kidney. us Tena Ivy PA-C IMG CT ABD/PELVIS Final Res ult * (ABNORMAL) Urinalysis w/reflex Urine Culture (06/19/2025 11:32 AM EDT) COLOR Yellow Yellow [facility] CLARITY Clear [facility] GLUCOSE Negative Negative [facility] BILI Negative Negative [facility] KETONES Negative Negative [facility] SPECIFIC GRAVITY 1.025 1.005 - 1.030 [facility] BLOOD 1+(A) Negative [facility] PH 6.0 5.0 - 8.0 [facility] Protein-UA Negative Negative [facility] NITRITE Negative Negative [facility] Leukocyte esterase, ur Negative Negative [facility] Urine (Urine) 06/19/2025 11: 32 AM EDT 06/19/2025 11:58 AM EDT eLwis Harper MD URINE ORDERABLES Final Result Performing Organization Address [facility]/State/[facility] Co de Phone Number [address] [address] * (ABNORMAL) Urine sediment (06/19/2025 11:32 AM EDT) WBC 0-4(A) NONE SEEN /hpf [facility] RBC 21-49(A) NONE SEEN /hpf [facility] URINE EPITHELIAL 5-10(A) NONE SEEN [facility] MUCUS Trace(A) NONE SEEN /hpf [facility] BACTERIA 1+(A) NONE SEEN /hpf [facility] 06/19/2025 11:3 2 AM EDT 06/19/2025 11:58 AM EDT us Lewis Harper MD URINE ORDERABLES Final Result Performing Organization Address [facility]/ZIP Co de Phone Number [address] [address] * (ABNORMAL) LFTs (hepatic panel) (06/19/2025 11:26 AM EDT) ALKALINE PHOSPHATASE 141(H) 39 - 117 U/L [facility] TOTAL BILIRUBIN 0.8 0.0 - 1.2 mg/dL [facility] DIRECT BILIRUBIN 0.2 0.0 - 0.2 mg/dL [facility] Bilirubin (Indirect) 0.6 0 - 1.5 mg/dL [facility] AST 24 0 - 37 U/L [facility] ALT 12 0 - 40 U/L [facility] TOTAL PROTEIN 6.9 6.5 - 8.0 g/dL [facility] ALBUMIN 3.8(L) 3.9 - 4.8 g/dL [facility] GLOBULIN 3.1 1 - 4.8 g/dL [facility] A/G Ratio 1.23 1.00 - 4.80 RATIO [facility] Blood 06/19/2025 11:2 6 AM EDT 06/19/2025 11:46 AM EDT us Lewis Harper MD LAB BLOOD ORDERAB LES Final Result Performing Organization Address [facility]/ZIP Co de Phone Number [address] [address] * (ABNORMAL) CBC and differential (06/19/2025 11:26 AM EDT) WBC 10.23 4.00 - 11.00 K/uL [facility] RBC 5.09 4.00 - 5.20 M/uL [facility] HGB 15.6 12.0 - 16.0 g/dL [facility] HCT 48.7(H) 36.0 - 46.0 % [facility] PLT 207 150 - 450 K/uL [facility] MCV 95.7 80.0 - 100.0 fL [facility] MCH 30.6 27.0 - 31.0 pg [facility] MCHC 32.0 32.0 - 36.0 g/dL [facility] RDW 13.1 11.5 - 14.5 % [facility] MPV 10.0 8.4 - 12.0 fL [facility] NRBC 0.00 0.00 /100 WBCs [facility] ABSOLUTE NRBC 0.00 0.00 K/uL [facility] DIFF METHOD Auto [facility] NEUTS 77.3(H) 48.0 - 76.0 % [facility] LYMPHS 10.8(L) 18.0 - 41.0 % [facility] MONOS 9.2 4.0 - 11.0 % [facility] EOS 1.7 0.0 - 5.0 % [facility] BASOS 0.6 0.0 - 1.5 % [facility] Granulocytes, immature (%) 0.4 0.0 - 0.9 % [facility] ABSOLUTE NEUTS 7.92(H) 1.92 - 7.60 K/uL [facility] ABSOLUTE LYMPHS 1.10 0.72 - 4.10 K/uL [facility] ABSOLUTE MONOS 0.94 0.16 - 1.10 K/uL [facility] ABSOLUTE EOS 0.17 0.00 - 0.50 K/uL [facility] ABSOLUTE BASOS 0.06 0.00 - 0.15 K/uL [facility] Granulocytes, immature 0.04 0.00 - 0.09 K/uL [facility] Blood 06/19/2025 11:2 6 AM EDT 06/19/2025 11:46 AM EDT us Lewis Harper MD LAB BLOOD ORDERAB LES Final Result [facility] [address] [place] [address] * (ABNORMAL) Lipase (06/19/2025 11:26 AM EDT) LIPASE 78(H) 16 - 63 U/L [facility] Blood 06/19/2025 11:2 6 AM EDT 06/19/2025 11:46 AM EDT us Lewis Harper MD LAB BLOOD ORDERAB LES Final Result [address] [address] * (ABNORMAL) Basic metabolic panel (06/19/2025 11:26 AM EDT) SODIUM 139 133 - 146 mmol/L [facility] CHLORIDE 104 96 - 108 mmol/L [facility] POTASSIUM 4.3 3.3 - 5.1 mmol/L [facility] CO2 22 21 - 35 mmol/L [facility] BUN 19 6 - 19 mg/dL [facility] CREATININE 1.20 0.5 - 1.5 mg/dL [facility] GLUCOSE 168(H) 70 - 99 mg/dL [facility] CALCIUM 9.7 8.4 - 10.3 mg/dL [facility] EGFR 48(L) >59 mL/min/1.7 3m2 [facility] Comment:Estimated glomerular filtration rate calculated using the CKD-EPI refit equation. ANION GAP 17 10 - 20 mmol/L [facility] Blood 06/19/2025 11:2 6 AM EDT 06/19/2025 11:46 AM EDT us Lewis Harper MD LAB BLOOD ORDERAB LES Final Result Performing Organization Address City/[facility]/ZIP Co de Phone Number [address] [address] from Last 3 Months Insurance [employer] [place] MEDIC[place] PPO BLUE REPLACEMENT [facility] MEDICARE PPO BLUE REPLACEMENT [facility] MEDICARE PPO BLUE REPLACEMENT [facility] MEDICARE PPO BLUE [facility]PLACEMENT [facility] MEDICARE PPO BLUE REPLACEMENT [facility] MEDICARE PPO BLUE REPLACEMENT [facility] MEDICARE PPO BLUE REPLACEMENT [facility] MEDICARE PPO BLUE REPLACEMENT [facility] MEDICARE PPO BLUE REPLACEMENT Advance Directives For more information, please contact: [phone] (9AM - 5PM [facility], Monday-Monday) * Full Code (Presumed) (Latest Code Status on File) Date Activated Date Inactivated Comments 02/18/2019 2:58 PM 02/26/2019 5:00 PM * Full Code (Presumed) Date Activated Date Inactivated Comments 02/18/2019 7:51 AM 02/18/2019 2:58 PM * Full Code (Presumed) Date Activated Date Inactivated Comments 10/25/2018 6:42 PM 10/29/2018 4:56 PM Care Teams Outside Solar Sales Consultant Relationship Specialty Start Date End Date Deneen Wheatley DO [address] [place] [address] PCP - General Family Medicine 07/26/22 Additional Source Comments The information contained in this document represents components of the legal health record. It is not the complete legal health record.[facility]
--- OUTSIDE RECORDS SUMMARY | 2025-07-24 06:18 | XMS_ITS | Encounter Summary ---
Author Organization [facility] Address [address] [place] [address] Phone Care Team Providers Care Live Truck Operator Name Role Phone Deneen Wheatley Primary Care Provider Encounter Details Date Type Department Care Team (Late st Contact Info) Description 01/30/2024 Procedure Pass [facility] Endoscopy Admitting Dept Virtual Department [address] [place] [address] Social History Tobacco Use Types Packs/Day Years [...] Allergy and Critical Care Medicine 10 [facility] [place] [address] Michael Marlow MD 10 [facility] 2nd [place] [address] [email or web address] 10/09/2025 9:40 AM EST Office Visit [facility] Rheumatology [address] [place] [address] Perla Cohn MD, MPH [address] [place] [address] 10/22/2025 3:45 PM EST Appointment [facility], Bone Density - [address] [address] Deneen Wheatley DO 70 [place] [address] 11/10/2025 1:15 PM EST Office Visit [facility] Gastroenterology Clinic 10 [place] [address] Unknown, Unknown, Krysten Oliver, EDITOR BOOK [address] [phone] [email or web address] documented as of this encounter Visit Diagnoses Not on filedocumented in this encounter Care Teams Live Truck Operator Relationship Specialty Start Date End Date Deneen Wheatley DO [address] [place] [address] [email or web address] PCP - General Family Medicine 07/26/22 documented as of this encounter Additional Source Comments The information contained in this document represents components of the legal health record. It is not the complete legal health record.[facility]
--- OUTSIDE RECORDS SUMMARY | 2025-07-24 06:18 | XMS_ITS | Encounter Summary ---
Author Organization [facility] Address [address] [place] [address] Phone Care Team Providers Care Wine And Spirits Clerk Name Role Phone Deneen Wheatley Primary Care Provider Encounter Details Date Type Department Care Team (Late st Contact Info) Description 10/17/2023 Procedure Pass [facility], Ct Scan - [address] [address] Social History Tobacco Use Types Packs/Day Years [...] Upcoming Encounters Date Type Department Care Team ([facility] st Contact Info) Description 10/03/2025 10:00 AM EST Office Visit [facility] Pulmonary, Allergy and Critical Care Medicine 10 [place] [address] Michael Marlow MD 10 [facility] 2nd [place] [address] [email or web address] 10/09/2025 9:40 AM EST Office Visit [facility] Rheumatology [address] [place] [address] Perla Cohn MD, MPH [address] [place] [address] 203 [place] [address] 10/22/2025 3:45 PM EST Appointment [facility], Bone Density [address] [address] Deneen Wheatley DO 70 [place] [address] 11/10/2025 1:15 PM EST Office Visit [facility] Gastroenterology [facility] 10 [place] [address] Unknown, Unknown, Krysten Oliver, CLOCK SMITH [address] [phone] [email or web address] documented as of this encounter Visit Diagnoses Not on filedocumented in this encounter Care Teams Wine And Spirits Clerk Relationship Specialty Start Date End Date Deneen Wheatley DO [address] [place] [address] [email or web address] PCP - General Family Medicine 07/26/22 documented as of this encounter Additional Source Comments The information contained in this document represents components of the legal health record. It is not the complete legal health record.[facility]
--- OUTSIDE RECORDS SUMMARY | 2025-07-24 06:18 | XMS_ITS | Encounter Summary ---
Author Organization [facility] Address [address] [place] [address] Phone Care Team Providers Care Manager Assurance Name Role Phone Blue Rojo MD Primary Care Provider Deneen Wheatley DO Primary Care Provider Deneen Wheatley DO Primary Care Provider Encounter Details Date Type Department Care Team (Late st Contact Info) Description 02/18/2019 Procedure Pass [place] Admitting Dept - Virtual Department 30 [place] [address] Social History Tobacco Use Types Packs/Day Years [...] Pulmonary, Allergy and Critical Care Medicine 10 [facility] [place] [address] Michael Marlow MD 10 [facility] 2nd [place] [address] [email or web address] 10/09/2025 9:40 AM EST Office Visit [facility] Rheumatology 22 [place] [address] Perla Cohn MD, MPH [address] [address] 10/22/2025 3:45 PM EST Appointment [facility], Bone Density - [facility] 30 [place] [address] Deneen Wheatley DO 70 [place] [address] 11/10/2025 1:15 PM EST Office Visit [facility]astro[facility]ology [facility] 10 [place] [address] Unknown, Unknown, Krysten Oliver, HEAT ENGINEERING TEACHER [address] [address] [email or web address] documented as of this encounter Visit Diagnoses Not on filedocumented in this encounter Additional Health Concerns Infection Onset Date Last Indicated Resolved Time CoV-Risk 06/11/2020 06/12/2020 06/25/2020 1:23 AM EDT CoV-Risk Comment:Per note documentation 03/10/2023 03/10/2023 4:32 PM EDT documented as of this encounter Care Teams Manager Assurance Relationship Specialty Start Date End Date Blue Rojo MD [email or web address] PCP - General 07/20/17 05/03/21 Deneen Wheatley DO PCP - General Family Medicine 05/04/21 07/25/22 Deneen Wheatley DO [address] [place] [address] PCP - General Family Medicine 07/26/22 documented as of this encounter Additional Source Comments The information contained in this document represents components of the legal health record. It is not the complete legal health record.[facility]
== END 2025-07-24 06:16 | disposition home or self-care (01) ==
LOC: CF 06:15
PROVIDERS: Visit Provider Internal Medicine
DX: M53.3 Sacrococcygeal disorders, not elsewhere classified (principal); Z79.899 Other long term (current) drug therapy
CPT/HCPCS: 27096; J2003; J2795

== ENCOUNTER 2025-07-24 10:01 | Outpatient (AMB) | payer MEDICARE, SELFPAY ==
--- NOTE | 2025-07-24 10:14 | A.OFFVIS_ITS ---
Vital Signs 07/24/25 10:15 07/24/25 10:39 BP 130/72 130/72 Blood Pressure Location Lt radial Lt radial Position Sitting Sitting Respiration 16 16 Pulse 78 79 Pulse Source Pulse Oximeter Pulse Oximeter Pulse Oximetry (%) 93 94 Oxygen Delivery Method Room Air Room Air Intake Visit Reasons: Right Diagnostic SIJ Injection Motor And Generator Assembler Required: No Accompanied by: Spouse Allergies epinephrine Allergy (Severe, Verified 07/24/25 10:15) Anaphylaxis bisacodyl (From Bisa-Lax (bisacodyl)) Adverse Reaction (Severe, Verified 07/24/25 10:15) cramps Medication List - Last Reconciled 07/24/25 by Josie Ibarra LPN alprazolam 0.5 mg PO TID cholecalciferol (vitamin D3) 1,250 mcg PO QWEEK gabapentin 100 mg PO .4x daily semaglutide (Rybelsus) 1.5 mg PO DAILY tranylcypromine (Parnate) 30 mg PO BID vitamins A,C,O-vclj-qyzbsc 4,296 mcg-226 mg-90 mg (PreserVision AREDS) 1 cap PO BID HPI HPI Right Diagnostic SIJ Injection: Details: Patient presents for scheduled procedure. Denies any recent cough, cold, infection, fever or other significant changes in medical history since last office visit. Physical Exam Vital Signs: Last Vital Signs Pulse 79 07/24/25 10:39 Resp 16 07/24/25 10:39 BP 130/72 07/24/25 10:39 Pulse Ox 94 07/24/25 10:39 Oxygen Delivery Method Room Air 07/24/25 10:39 Office Procedures AMB Joint Injection/Aspiration Joint Injection/Aspiration Details: Diagnostic Sacroiliac Joint Injection, Right The procedure, its benefits, and its risks were explained and written informed consent was obtained from the patient. Immediately prior to starting the procedure, a time-out safety check was conducted. The patient's identification, procedure name, procedure site, and procedure laterality were confirmed with the patient. ? Patient was placed prone on the fluoroscopy table and the lumbosacral area was prepped using ChloraPrep and draped with sterile draped in standard fashion. The C-arm was rotated in a contralateral oblique fashion until the medial border of the iliac crest no longer foreshadowed the posterior sacroiliac joint line. The skin and subcutaneous tissue was anesthetized using 1 mL of 0.75% plain lidocaine with 1.5-inch 25-gauge needle in the middle region of the joint line.? A 3.5-inch 22-gauge spinal needle with small bend on the tip was slowly advanced towards the joint line, coaxial to the x-ray beam. Once bony content was obtained, the needle was easily slid into the intra-articular space.? Intra- articular needle position was confirmed using lateral fluoroscopy.? A total volume of 2.5mL of solution containing 0.5% of ropivacaine was injected intra- articularly. The stylet was reinserted and needle was removed. The patient tolerated the procedure well. Patient denied any lower extremity weakness or numbness. Patient was observed for 30 min and was discharged after fulfilling the standard discharge criteria. Coding 46360 - Sacroiliac Procedure code (CPT) selection complete Assessment & Plan Assessment & Plan (1) Sacroiliac joint pain: Code(s): M53.3 - Sacrococcygeal disorders, not elsewhere classified Category: Medical Plan Patient is status post diagnostic right sacroiliac joint injection. Patient tolerated procedure well and was discharged home in stable condition with discharge instructions. All questions were answered. We will follow-up via telephone or in clinic to assess response to therapy. A follow-up appointment was made during today's visit. Orders: Orders FL guidance in treatment room Today Annie Mckee APRN, CUSTOMER BUSINESS MANAGER M53.3 - Sacrococcygeal disorders, not elsewhere classified AMB Joint Injection/Aspiration Today Nabil Bailey MD M53.3 - Sacrococcygeal disorders, not elsewhere classified Coding Level of Care Code Procedure Only Diagnoses Sacroiliac joint pain M53.3 CPT Codes Coding - Joint 9: 46802 - Sacroiliac ([id number])
[2025-07-24 10:15] VITALS: BP 130/72; PULSE 78; RESP 16; O2SAT 93
[2025-07-24 10:39] VITALS: BP 130/72; PULSE 79; RESP 16; O2SAT 94
--- OUTSIDE RECORDS SUMMARY | 2025-07-24 11:40 | XMS_ITS | Clinical Summary ---
Author Organization [facility], Address [address] [place] [phone] Phone Care Team Providers Care Resident Intern Name Role Phone WheatleyDeneen kemp Primary Care Provider [phone] Allergies Active Allergy Reactions Criticality Noted Date [...] in the evening. Active ergocalciferol 1.25 MG (27117 UT) capsule Take 100,000 Units by mouth [...] Encounters Date Type Department Care Team Description 06/20/2025 Documentation Only [facility], [place] [phone] Maribeth Tyson 05/02/2025 10:45 AM EDT Office Visit [facility], [address] [place] [phone] Austen Raza MD Stage 3a chronic kidney disease (HCC) (Primary Dx); Nephrolithiasis; Cyst of kidney 05/02/2025 Documentation Only [facility], [address] [place] [address] Deandra Beckett 05/01/2025 Documentation Only [facility], [facility] [place] [phone] Maribeth Tyson 05/01/2025 Documentation Only [facility], [place] [phone] Maribeth Tyson 05/01/2025 Documentation Only [facility], [place] [address] [place] [phone] Maribeth Tyson from Last 3 Months Family [...] Visit [facility], [place] [address] Austen Raza MD [address] [place] [address] Health Maintenance Due Date Last Done Comments Breast Cancer Screening 1950 Pneumococcal Vaccine: 50+ Years (1 of 2 - PCV) 970 Colorectal Cancer Screening: Annual FOBT 2000 Colorectal Cancer Screening: Colonoscopy 2000 Colorectal Cancer Screening: Sigmoidoscopy 2000 Hepatitis B Vaccine (1 of 3 - Risk 3-dose series) 04/02 Influenza Vaccine (#1) 2025 Insurance [facility] Care Teams Resident Intern Relationship Specialty Start Date End Date Deneen Wheatley DO [address] [place] [address] PCP - General Family Medicine 09/17/24
--- OUTSIDE RECORDS SUMMARY | 2025-07-24 11:40 | XMS_ITS | Encounter Summary ---
Author Organization [facility] Address [address] [place] [address] Phone Care Team Providers Care Physician Office Rep Name Role Phone Deneen Wheatley DO Primary Care Provider [phone] Encounter Details Date Type Department Care Team (Late st Contact Info) Description 11/01/2024 Documentation Only [facility] [address] [place] [address] Deandra Beckett [address] [place] [phone] Social History Tobacco Use Types Packs/Day Years [...] Visit [facility] [address] [place] [phone] Austen Raza MD [address] [place] [address] [place] [address] documented as of this encounter Visit Diagnoses Not on filedocumented in this encounter Care Teams Physician Office Rep Relationship Specialty Start Date End Date Deneen Wheatley DO [address] [place], [place] [phone] PCP - General Family Medicine 09/17/24 documented as of this encounter
--- OUTSIDE RECORDS SUMMARY | 2025-07-24 11:40 | XMS_ITS | Encounter Summary ---
Author Organization [facility] Address [address] [place] [address] Phone Care Team Providers Care Tare Man Name Role Phone Deneen Wheatley DO Primary Care Provider [phone] Encounter Details Date Type Department Care Team (Late st Contact Info) Description 11/01/2024 Documentation Only [facility] [address] [place] [address] Deandra Beckett [address] [place] [phone] Social History Tobacco Use Types Packs/Day Years [...] Visit [facility] [address] [place] [phone] Austen Raza MD [address] [place] [address] [place] [address] documented as of this encounter Visit Diagnoses Not on filedocumented in this encounter Care Teams Tare Man Relationship Specialty Start Date End Date Deneen Wheatley DO [address] [place], [place] [phone] PCP - General Family Medicine 09/17/24 documented as of this encounter
--- OUTSIDE RECORDS SUMMARY | 2025-07-24 11:40 | XMS_ITS | Encounter Summary ---
Author Organization [facility] Address [address] [place] [address] Phone Care Team Providers Care Ambulatory Care Name Role Phone Deneen Wheatley DO Primary Care Provider [phone] Encounter Details Date Type Department Care Team (Late st Contact Info) Description 11/01/2024 Documentation Only [facility] [address] [place] [address] Deandra Beckett [address] [place] [phone] Social History Tobacco Use Types Packs/Day Years [...] Visit [facility] [address] [place] [phone] Austen Raza MD [address] [place] [address] [place] [address] documented as of this encounter Visit Diagnoses Not on filedocumented in this encounter Care Teams Ambulatory Care Relationship Specialty Start Date End Date Deneen Wheatley DO 70 [place], [place] [phone] PCP - General Family Medicine 09/17/24 documented as of this encounter
--- OUTSIDE RECORDS SUMMARY | 2025-07-24 11:40 | XMS_ITS | Encounter Summary ---
Author Organization [facility] Address [address] [place] [address] Phone Care Team Providers Care Lay Midwife Name Role Phone Deneen Wheatley DO Primary Care Provider [phone] Encounter Details Date Type Department Care Team (Late st Contact Info) Description 11/01/2024 Documentation Only [facility] [address] [place] [address] Deandra Beckett [address] [place] [phone] Social History Tobacco Use Types Packs/Day Years [...] Visit [facility] [address] [place] [phone] Austen Raza MD [address] [place] [address] [place] [address] documented as of this encounter Visit Diagnoses Not on filedocumented in this encounter Care Teams Lay Midwife Relationship Specialty Start Date End Date Deneen Wheatley DO [address] [place], [place] [phone] PCP - General Family Medicine 09/17/24 documented as of this encounter
--- OUTSIDE RECORDS SUMMARY | 2025-07-24 11:40 | XMS_ITS | Encounter Summary ---
Author Organization [facility] Address [address] [place] [address] Phone Care Team Providers Care Software Release Engineer Name Role Phone Deneen Wheatley DO Primary Care Provider [phone] Encounter Details Date Type Department Care Team (Late st Contact Info) Description 11/01/2024 Documentation Only [facility] [address] [place] [address] Deandra Beckett [address] [place] [phone] Social History Tobacco Use Types Packs/Day Years [...] Visit [facility] [address] [place] [phone] Austen Raza MD [address] [place] [address] [place] [address] documented as of this encounter Visit Diagnoses Not on filedocumented in this encounter Care Teams Software Release Engineer Relationship Specialty Start Date End Date Deneen Wheatley DO [address] [place], [place] [phone] PCP - General Family Medicine 09/17/24 documented as of this encounter
--- OUTSIDE RECORDS SUMMARY | 2025-07-24 11:40 | XMS_ITS | Encounter Summary ---
Author Organization [facility] Address [address] [place] [address] Phone Care Team Providers Care Pilot Supervisor Name Role Phone Deneen Wheatley DO Primary Care Provider [phone] Encounter Details Date Type Department Care Team (Late st Contact Info) Description 11/01/2024 Documentation Only [facility] [address] [place] [address] Deandra Beckett [address] [place] [phone] Social History Tobacco Use Types Packs/Day Years [...] Visit [facility] [address] [address] [place] [phone] Austen Raza MD [address] [place] [address] [place] [address] documented as of this encounter Visit Diagnoses Not on filedocumented in this encounter Care Teams Pilot Supervisor Relationship Specialty Start Date End Date Deneen Wheatley DO [address] [place], [place] [phone] PCP - General Family Medicine 09/17/24 documented as of this encounter
--- OUTSIDE RECORDS SUMMARY | 2025-07-24 11:41 | XMS_ITS | Encounter Summary ---
Author Organization [facility] Address [address] [place] [address] Phone Care Team Providers Care Balloon Seller Name Role Phone Deneen Wheatley DO Primary Care Provider [phone] Encounter Details Date Type Department Care Team (Late st Contact Info) Description 11/01/2024 Documentation Only [facility] [address] [place] [address] Deandra Beckett [address] [place] [phone] Social History Tobacco Use Types Packs/Day Years [...] Visit [facility] [address] [place] [phone] Austen Raza MD [address] [place] [address] [place] [address] documented as of this encounter Visit Diagnoses Not on filedocumented in this encounter Care Teams Balloon Seller Relationship Specialty Start Date End Date Deneen Wheatley DO [address] [place], [place] [phone] PCP - General Family Medicine 09/17/24 documented as of this encounter
--- OUTSIDE RECORDS SUMMARY | 2025-07-24 11:41 | XMS_ITS | Encounter Summary ---
Author Organization [facility] [place], Address [address] [place] [address] Phone Care Team Providers Care Photographs Curator Name Role Phone Deneen Wheatley DO Primary Care Provider [phone] Encounter Details Date Type Department Care Team (Late st Contact Info) Description 05/01/2025 Documentation Only [facility] [address] [place] [address] Maribeth Tyson [address] [place] [phone] Social History Tobacco Use Types Packs/Day Years [...] And [facility] [address] [place] [address] Austen Raza MD [address] [place] [address] documented as of this encounter Visit Diagnoses Not on filedocumented in this encounter Care Teams Photographs Curator Relationship Specialty Start Date End Date Deneen Wheatley DO [address] [place] [address] PCP - General Family Medicine 09/17/24 documented as of this encounter
--- OUTSIDE RECORDS SUMMARY | 2025-07-24 11:41 | XMS_ITS | Encounter Summary ---
Author Organization [facility] [place], Address [address] [place] [address] Phone Care Team Providers Care Shot Coat Tender Name Role Phone Deneen Wheatley DO Primary Care Provider [phone] Encounter Details Date Type Department Care Team (Late st Contact Info) Description 05/01/2025 Documentation Only [facility] [address] [place] [address] Maribeth Tyson [address] [place] [phone] Social History Tobacco Use Types Packs/Day Years [...] Visit [facility] [address] [place] [address] Austen Raza MD [address] [place] [address] documented as of this encounter Visit Diagnoses Not on filedocumented in this encounter Care Teams Shot Coat Tender Relationship Specialty Start Date End Date Deneen Wheatley DO [address] [place] [address] PCP - General Family Medicine 09/17/24 documented as of this encounter
--- OUTSIDE RECORDS SUMMARY | 2025-07-24 11:41 | XMS_ITS | Encounter Summary ---
Author Organization [facility] Address [address] [place] [address] Phone Care Team Providers Care Candy Puller Name Role Phone Deneen Wheatley DO Primary Care Provider [phone] Encounter Details Date Type Department Care Team (Late st Contact Info) Description 05/02/2025 Documentation Only [facility] [address] [place] [address] Deandra Beckett [address] [place] [phone] Social History Tobacco Use Types Packs/Day Years [...] Visit [facility] [place] [address] Jackie [address] [place] [phone] Austen Raza MD [address] [place] [address] [place] [address] documented as of this encounter Visit Diagnoses Not on filedocumented in this encounter Care Teams Candy Puller Relationship Specialty Start Date End Date Deneen Wheatley DO [address] [place], [place] [phone] PCP - General Family Medicine 09/17/24 documented as of this encounter
--- OUTSIDE RECORDS SUMMARY | 2025-07-24 11:41 | XMS_ITS | Encounter Summary ---
Author Organization [facility] [place], Address [address] [place] [address] Phone Care Team Providers Care Heel Room Supervisor Name Role Phone Deneen Wheatley DO Primary Care Provider [phone] Encounter Details Date Type Department Care Team (Late st Contact Info) Description 09/17/2024 Documentation Only [facility] [address] [place] [address] Dieudonne DanielsCORTEZ, [place] [address] [place] [phone] Social History Tobacco Use Types Packs/Day Years Used Date Smoking Tobacco: Never Assessed Comments Unknown Sex and Gender Information Value Date Recorded Sex Assigned at Not on file Legal Sex Female 9:34 AM EST Gender Identity Not on file Sexual Orientation Not on file documented as of this encounter Plan of Treatment Upcoming Encounters Date Type Department Care Team (Late Contact Info) Description 05/08/2026 11:15 AM EDT Office Visit [facility] [place] [address] Jackie ORDO[address]EZ [address] [place] [phone] Austen Raza MD [address] [place] [address] [place] [address] documented as of this encounter Visit Diagnoses Not on filedocumented in this encounter Care Teams Heel Room Supervisor Relationship Specialty Start Date End Date Deneen Wehatley DO [address] [place], [place] [phone] PCP - General Family Medicine 09/17/24 documented as of this encounter
--- OUTSIDE RECORDS SUMMARY | 2025-07-24 11:41 | XMS_ITS | Encounter Summary ---
Author Organization [facility] Address [address] [place] [address] Phone Care Team Providers Care Sewer Separation Designer Name Role Phone Deneen Wheatley DO Primary Care Provider Encounter Details Date Type Department Care Team (Late st Contact Info) Description 11/01/2024 Documentation Only [facility] [address] [place] [address] Deandra Beckett [address] [place] [phone] Social History Tobacco Use Types Packs/Day Years [...] Visit [facility] [place] [address] Jackie [address] [place] [phone] Austen Raza MD [address] [place] [address] [place] [address] documented as of this encounter Visit Diagnoses Not on filedocumented in this encounter Care Teams Sewer Separation Designer Relationship Specialty Start Date End Date Deneen Wheatley DO [address] [place], [place] [phone] PCP - General Family Medicine 09/17/24 documented as of this encounter
--- OUTSIDE RECORDS SUMMARY | 2025-07-24 11:41 | XMS_ITS | Encounter Summary ---
Author Organization [facility] [place], Address [address] [place] [address] Phone Care Team Providers Care Marine Painter Name Role Phone Deneen Wheatley DO Primary Care Provider [phone] Encounter Details Date Type Department Care Team (Late st Contact Info) Description 06/20/2025 Documentation Only [facility] Chio [address] [place] [address] Maribeth Tyson [address] [place] [phone] Social History Tobacco Use Types Packs/Day Years [...] Visit [facility] [address]io [address] [place] [address] Austen Raza MD [address] [place] [address] documented as of this encounter Visit Diagnoses Not on filedocumented in this encounter Care Teams Marine Painter Relationship Specialty Start Date End Date Deneen Wheatley DO [address] [place] [address] PCP - General Family Medicine 09/17/24 documented as of this encounter
--- OUTSIDE RECORDS SUMMARY | 2025-07-24 11:41 | XMS_ITS | Encounter Summary ---
Author Organization [facility] Address [address] [place] [address] Phone Care Team Providers Care Rubber Tire Curer Name Role Phone Deneen Wheatley DO Primary Care Provider [phone] Encounter Details Date Type Department Care Team (Late st Contact Info) Description 11/01/2024 Documentation Only [facility] [address] [place] [address] Deandra Beckett [address] [place] [phone] Social History Tobacco Use Types Packs/Day Years [...] Visit [facility] [address] [address] Jackie [address] [place] [phone] Austen Raza MD [address] [place] [address] [place] [address] documented as of this encounter Visit Diagnoses Not on filedocumented in this encounter Care Teams Rubber Tire Curer Relationship Specialty Start Date End Date Deneen Wheatley DO [address] [place], [place] [phone] PCP - General Family Medicine 09/17/24 documented as of this encounter
--- OUTSIDE RECORDS SUMMARY | 2025-07-24 11:41 | XMS_ITS | Encounter Summary ---
Author Organization [facility] Address [address] [place] [address] Phone Care Team Providers Care Assistant Floor Covering Printer Name Role Phone Deneen Wheatley DO Primary Care Provider Encounter Details Date Type Department Care Team (Late st Contact Info) Description 11/01/2024 Documentation Only [facility] [address] [place] [address] Deandra Beckett [address] [place] [phone] Social History Tobacco Use Types Packs/Day Years [...] Visit [facility] [place] [address] Jackie [address] [place] [phone] Austen Raza MD [address] [place] [address] [place] [address] documented as of this encounter Visit Diagnoses Not on filedocumented in this encounter Care Teams Assistant Floor Covering Printer Relationship Specialty Start Date End Date Deneen Wheatley DO [address] [place], [place] [phone] PCP - General Family Medicine 09/17/24 documented as of this encounter
--- OUTSIDE RECORDS SUMMARY | 2025-07-24 11:41 | XMS_ITS | Encounter Summary ---
Author Organization [facility] [place], Address [address] [place] [address] Phone Care Team Providers Care Assembler Latches And Springs Name Role Phone Deneen Wheatley DO Primary Care Provider [phone] Encounter Details Date Type Department Care Team (Late st Contact Info) Description 05/01/2025 Documentation Only [facility] Chio OR[address] [place] [address] Maribeth Tyson [address] [place] [phone] Social History Tobacco Use Types Packs/Day Years [...] Visit [facility] Chio [address] [place] [address] Austen Raza MD [address] [place] [address] documented as of this encounter Visit Diagnoses Not on filedocumented in this encounter Care Teams Assembler Latches And Springs Relationship Specialty Start Date End Date Deneen Wheatley DO [address] [place] [address] PCP - General Family Medicine 09/17/24 documented as of this encounter
--- OUTSIDE RECORDS SUMMARY | 2025-07-24 11:41 | XMS_ITS | Encounter Summary ---
Author Organization [facility] Address [address] [place] [address] Phone Care Team Providers Care Skiver Hand Name Role Phone Deneen Wheatley DO Primary Care Provider [phone] Encounter Details Date Type Department Care Team (Late st Contact Info) Description 11/01/2024 Documentation Only [facility] [address] [place] [address] Deandra Beckett [address] [place] [phone] Social History Tobacco Use Types Packs/Day Years [...] [facility] [place] [address] Jackie [address] [place] [phone] Austen Raza MD [address] [place] [address] [place] [address] documented as of this encounter Visit Diagnoses Not on filedocumented in this encounter Care Teams Skiver Hand Relationship Specialty Start Date End Date Deneen Wheatley DO [address] [place], [place] [phone] PCP - General Family Medicine 09/17/24 documented as of this encounter
--- OUTSIDE RECORDS SUMMARY | 2025-07-24 11:41 | XMS_ITS | Encounter Summary ---
Author Organization [facility] Address [address] [place] [address] Phone Care Team Providers Care Stenciling Machine Tender Name Role Phone Deneen Wheatley DO Primary Care Provider [phone] Encounter Details Date Type Department Care Team (Late st Contact Info) Description 11/01/2024 Documentation Only [facility] [address] [place] [address] Deandra Beckett [address] [place] [phone] Social History Tobacco Use Types Packs/Day Years [...] Visit [facility] [place] [address] Jackie [address] [place] [phone] Austen Raza MD [address] [place] [address] [place] [address] documented as of this encounter Visit Diagnoses Not on filedocumented in this encounter Care Teams Stenciling Machine Tender Relationship Specialty Start Date End Date Deneen Wheatley DO [address] [place], [place] [phone] PCP - General Family Medicine 09/17/24 documented as of this encounter
--- OUTSIDE RECORDS SUMMARY | 2025-07-24 11:41 | XMS_ITS | Encounter Summary ---
Author Organization [facility] Address [address] [place] [address] Phone Care Team Providers Care Ship Pilot Name Role Phone Deneen Wheatley DO Primary Care Provider [phone] Encounter Details Date Type Department Care Team (Late st Contact Info) Description 11/01/2024 Documentation Only [facility] [address] [place] [address] Deandra Beckett [address] [place] [phone] Social History Tobacco Use Types Packs/Day Years [...] Visit [facility] [place] [address] Jackie [address] [place] [phone] Austen Raza MD [address] [place] [address] [place] [address] documented as of this encounter Visit Diagnoses Not on filedocumented in this encounter Care Teams Ship Pilot Relationship Specialty Start Date End Date Deneen Wheatley DO [address] [place], [place] [phone] PCP - General Family Medicine 09/17/24 documented as of this encounter
== END 2025-07-24 10:42 | disposition home or self-care (01) ==
LOC: HO.PMCPRC 10:01
PROVIDERS: Visit Provider Internal Medicine
DX: M53.3 Sacrococcygeal disorders, not elsewhere classified (principal)
CPT/HCPCS: 27096

== ENCOUNTER 2025-07-30 10:04 | Outpatient (AMB) | payer MEDICARE, SELFPAY ==
--- NOTE | 2025-07-30 10:05 | A.OFFVIS_ITS ---
Vital Signs 07/30/25 10:07 Height 5 ft 3 in Weight 256 lb BMI 45.3 BP 124/78 Blood Pressure Location Lt brachial Position Sitting Respiration 16 Pulse 87 Pulse Source Pulse Oximeter Pulse Oximetry (%) 93 Oxygen Delivery Method Room Air Intake Visit Reasons: S/P Right Diagnostic SIJ Injection Quality Improvement Consultant Required: No Allergies epinephrine Allergy (Severe, Verified 07/30/25 10:10) Anaphylaxis bisacodyl (From Bisa-Lax (bisacodyl)) Adverse Reaction (Severe, Verified 07/30/25 10:10) cramps Medication List - Last Reconciled 07/30/25 by Josie Ibarra LPN alprazolam 0.5 mg PO TID cholecalciferol (vitamin D3) 1,250 mcg PO QWEEK gabapentin 100 mg PO .4x daily tranylcypromine (Parnate) 30 mg PO BID vitamins A,C,H-hgdg-fccklo 4,296 mcg-226 mg-90 mg (PreserVision AREDS) 1 cap PO BID HPI HPI S/P Right Diagnostic SIJ Injection: Details: History of Present Illness The patient is a 75-year-old female presenting with ongoing pain management issues. She has been experiencing Complex Regional Pain Syndrome (CRPS) in the right lower extremity following a total knee replacement, characterized by sensitivity to touch, allodynia, and swelling. Previous interventions, including epidural steroid injections and lumbar medial branch blocks, have not provided significant relief. The patient has a history of Diabetes Mellitus, recently diagnosed, and was initially prescribed Rybelsus, which caused severe gastrointestinal side effects, leading to discontinuation. She is currently seeking guidance from a senior oracle adf developer to manage her condition effectively. The patient reports a history of kidney stones, with a recent episode where a stone passed into the bladder, confirmed by a CT scan. There is a concern for additional stones on the left side, which are being monitored. Neuropathy has been a persistent issue, with numbness and burning sensations in both legs, exacerbated by physical activity. Previous consultations with neurology have not yielded a definitive diagnosis, and the patient expresses frustration with the lack of progress. Chronic back pain is also a concern, with previous cortisone injections providing minimal relief. The patient is considering a lumbar sympathetic block as a potential intervention for leg pain, although it may not address the back pain directly. Pain Description - Onset: Pain began following a total knee replacement. - Quality: Burning sensation and numbness in both legs. - Location: Primarily in the right lower extremity, with radiation to both legs. - Exacerbating Factors: Physical activity worsens the pain. - Relieving Factors: Previous interventions have not provided significant relief. - Impact: Pain interferes with daily activities and mobility. Physical Exam - Appears afebrile. - Alert and oriented. - Mood and affect appropriate. - Follows and participates in conversation appropriately. - Respiratory effort is unlabored. Results - CT Scan: Confirmed passage of kidney stone into the bladder. Pain Management - Affect: Pain significantly impacts the patient's mood and psychological well- being. - Analgesia: Previous interventions, including epidural steroid injections, have not provided adequate relief. - Adverse Effects: Rybelsus caused severe gastrointestinal side effects, leading to discontinuation. - Activities of Daily Living: Pain limits mobility and daily activities, although the patient can swim. - Aberrant Drug Related Behaviors: No evidence of medication misuse or abuse reported. Physical Exam Vital Signs: Last Vital Signs Pulse 87 07/30/25 10:07 Resp 16 07/30/25 10:07 BP 124/78 07/30/25 10:07 Pulse Ox 93 07/30/25 10:07 Oxygen Delivery Method Room Air 07/30/25 10:07 BMI result Body Mass Index 45.3 Assessment & Plan Assessment & Plan (1) Sacroiliac joint pain: Code(s): M53.3 - Sacrococcygeal disorders, not elsewhere classified Category: Medical Plan Plan Patient was informed and verbally consented to the use of an ambient scribe for clinic note documentation during this visit. 1. Complex Regional Pain Syndrome (Crps) - Plan for a right lumbar sympathetic block to address right lower extremity CRPS. - Previous interventions, including epidural steroid injections and lumbar medial branch blocks, were ineffective. 2. Diabetes Mellitus - Discontinued Rybelsus due to severe gastrointestinal side effects. - Patient is seeking guidance from a senior oracle adf developer for better management. 3. Kidney Stones - Recent passage of a kidney stone confirmed by CT scan. - Monitoring for potential additional stones on the left side. 4. Neuropathy - Persistent numbness and burning sensations in both legs. - Previous neurology consultations have not provided a definitive diagnosis. 5. Back Pain - Chronic back pain with minimal relief from previous cortisone injections. - Considering lumbar sympathetic block for leg pain, not directly addressing back pain. Discussion Notes I discussed with the patient the plan to proceed with a right lumbar sympathetic block to address the CRPS in the right lower extremity. We reviewed the lack of response to previous interventions and the potential benefits of this procedure. The patient was informed about the procedure's focus on leg pain and that it may not alleviate back pain. We also discussed the importance of managing her diabetes and the need for consultation with a senior oracle adf developer. Patient Instructions - Follow up with a senior oracle adf developer for management of diabetes. - Prepare for the lumbar sympathetic block procedure as discussed. - Monitor for any new symptoms or changes in pain and report them promptly. Coding Level of Care Code Est Pt Level 4 (42020) Diagnoses Sacroiliac joint pain M53.3
[2025-07-30 10:07] VITALS: BP 124/78; PULSE 87; RESP 16; O2SAT 93; BMI 45.3
--- OUTSIDE RECORDS SUMMARY | 2025-07-30 12:13 | XMS_ITS | Encounter Summary ---
Author Organization [facility] Address [address] [place] [address] Phone Care Team Providers Care Facetor Name Role Phone Deneen Wheatley Primary Care Provider Encounter Details Date Type Department Care Team (Late st Contact Info) Description 01/30/2024 Procedure Pass [facility] Endoscopy Admitting Dept Virtual Department [address] [place] [address] Social History Tobacco Use Types Packs/Day Years [...] Care Medicine 10 [facility] [place] [address] Michael Marlow MD 10 [facility] 2nd [place] [address] [email or web address] 10/09/2025 9:40 AM EST Office Visit [facility] Rheumatology [address] [place] [address] Perla Cohn MD, MPH [address] [place] [address] 10/22/2025 3:45 PM EST Appointment [facility], Bone Density - [address] [address] Deneen Wheatley DO [address] [place] [address] 11/10/2025 1:15 PM EST Office Visit [facility] 10 [place] [address] Unknown, Unknown, Krysten Oliver, GEOTHERMAL INSTALLER [address] [phone] [email or web address] documented as of this encounter Visit Diagnoses Not on filedocumented in this encounter Care Teams Facetor Relationship Specialty Start Date End Date Deneen Wheatley DO [address] [place] [address] [email or web address] PCP - General Family Medicine 07/26/22 documented as of this encounter Additional Source Comments The information contained in this document represents components of the legal health record. It is not the complete legal health record.[facility]
--- OUTSIDE RECORDS SUMMARY | 2025-07-30 12:13 | XMS_ITS | Encounter Summary ---
Author Organization [facility] Address [address] [place] [address] Phone Care Team Providers Care And Rescue Fire Fighter Crash Fire Name Role Phone Deneen Wheatley Primary Care Provider Encounter Details Date Type Department Care Team (Late Contact Info) Description 08/05/2022 Procedure Pass [facility] Cardiovascular And Interventional Radiology [address] [place] [address] Social History Tobacco Use Types Packs/Day Years [...] Allergy and Critical Care Medicine 10 [facility] [place] [address] Michael Marlow MD 10 [facility] 2nd [place] [address] [email or web address] 10/09/2025 9:40 AM EST Office Visit [facility] Rheumatology [address] [place] [address] Perla Cohn MD, MPH [address] [facility] [address] [place] [address] [email or web address] 10/22/2025 3:45 PM EST Appointment [facility], Bone Density [address] [address] Deneen Wheatley DO [address] [place] [address] 11/10/2025 1:15 PM EST Office Visit [facility] Gastroenterology Clinic 10 [place] [address] Unknown, Unknown, MD Alba, Krysten Queen, ELECTRONIC EQUIPMENT REPAIRMEN [address] [address] [email or web address] documented as of this encounter Visit Diagnoses Not on filedocumented in this encounter Additional Health Concerns Infection Onset Date Last Indicated Resolved Time CoV-Risk Comment:Per note documentation 03/10/2023 03/10/2023 4:32 PM EDT documented as of this encounter Care Teams And Rescue Fire Fighter Crash Fire Relationship Specialty Start Date End Date Deneen Wheatley DO [address] [place] [address] PCP - General Family Medicine 07/26/22 documented as of this encounter Additional Source Comments The information contained in this document represents components of the legal health record. It is not the complete legal health record.[facility]
--- OUTSIDE RECORDS SUMMARY | 2025-07-30 12:13 | XMS_ITS | Encounter Summary ---
Author Organization [facility] Address [address] [place] [address] Phone Care Team Providers Care Soil Sort Worker Name Role Phone Deneen Wheatley DO Primary Care Provider [phone] Reason for Referral * MRI/CAT Scan - Closed Specialty Diagnoses / Procedures Referred By Monty hernandez Referred To Contact Radiology Diagnoses Liver disease, unspecified Procedures CT Abdomen/Pelvis CHG CT SCAN,ABDOMENT AND PELVIS,W CONTRAST CHG CT SCAN,ABDOMENT AND PELVIS,COMBO CHG CT SCAN,ABDOMENT AND PELVIS,W/O CONTRAST Deneen Wheatley DO 70 [place] [address] Phone: tel: fax: mailto: Referral ID Status Reason Start Date Expiration Date Visits Re quested Visits Authorized [id number] Closed 06/14/2024 08/12/2024 1 1 Encounter Details Date Type Department Care Team (Latest Contact Info) Description 06/14/2024 Transcribe Orders Virtual Department 30 [place] [address] Deneen Wheatley DO 70 [place] [address] [email or web address] Liver disease, unspecified (Primary Dx) Social [...] Allergy and Critical Care Medicine 10 [facility] [place] [address] [place] [address] Michael Marlow MD 10 [facility] 2nd [place] [address] [email or web address] 10/09/2025 9:40 AM EST Office Visit [facility] Rheumatology 22 [place] [address] Perla Cohn MD, MPH 22 [facility], [address] [place] [address] 10/22/2025 3:45 PM EST Appointment [facility], Bone Density - [facility] 30 [place] [address] Deneen Wheatley, 70 [place] [address] 11/10/2025 1:15 PM EST Office Visit [facility] 10 [place] [address] Unknown, Unknown, Krysten Oliver, PHARMACOLOGY ASSOCIATE [address] [phone] [email or web address] documented as of this encounter Results [...] unspecified documented in this encounter Care Teams Soil Sort Worker Relationship Specialty Start Date End Date Deneen Wheatley DO [address] [place] [address] PCP - General Family Medicine 07/26/22 documented as of this encounter Additional Source Comments The information contained in this document represents components of the legal health record. It is not the complete legal health record.[facility]
--- OUTSIDE RECORDS SUMMARY | 2025-07-30 12:13 | XMS_ITS | Encounter Summary ---
Author Organization [facility] Address [address] [place] [address] Phone Care Team Providers Care Capacitor Tester Name Role Phone Deneen Wheatley DO Primary Care Provider Deneen Wheatley DO Primary Care Provider Encounter Details Date Type Department Care Team (Late Contact Info) Description 10/22/2021 Procedure Pass [facility], [address] [address] Social History Tobacco Use Types Packs/Day Years [...] and Critical Care Medicine 10 [facility] [place] [address] Michael Marlow MD 10 [facility] 2nd [place] [address] [email or web address] 10/09/2025 9:40 AM EST Office Visit [facility] Rheumatology 22 [place] [address] Perla Cohn MD, MPH 22 [facility], [address] [place] [address] 10/22/2025 3:45 PM EST Appointment [facility], Bone Density - [facility] 30 [place] [address] Deneen Wheatley DO 70 [place] [address] 11/10/2025 1:15 PM EST Office Visit [facility] Gastroenterology Clinic 10 [place] [address] Unknown, Unknown, MD Alba, Krysten Queen, METAL MINE INSPECTOR [address] [address] [email or web address] documented as of this encounter Visit Diagnoses Not on filedocumented in this encounter Additional Health Concerns Infection Onset Date Last Indicated Resolved Time CoV-Risk Comment:Per note documentation 03/10/2023 03/10/2023 4:32 PM EDT documented as of this encounter Care Teams Capacitor Tester Relationship Specialty Start Date End Date Deneen Wheatley DO PCP - General Family Medicine 05/04/21 07/25/22 Deneen Wheatley DO [address] [place] [address] [email or web address] PCP - General Family Medicine 07/26/22 documented as of this encounter Additional Source Comments The information contained in this document represents components of the legal health record. It is not the complete legal health record.[facility]
--- OUTSIDE RECORDS SUMMARY | 2025-07-30 12:13 | XMS_ITS | Encounter Summary ---
Author Organization [facility] Address [address] [place] [address] Phone Care Team Providers Care Manager Internship Name Role Phone Deneen Wheatley Primary Care Provider Encounter Details Date Type Department Care Team (Late st Contact Info) Description 06/14/2024 Procedure Pass [facility], Ct Scan - [address] [address] Social History Tobacco Use Types Packs/Day Years [...] Upcoming Encounters Date Type Department Care Team ([facility] st Contact Info) Description 10/03/2025 10:00 AM EST Office Visit [facility] Pulmonary, Allergy and Critical Care Medicine 10 [place] [address] Michael Marlow MD 10 [facility] 2nd [place] [address] [email or web address] 10/09/2025 9:40 AM EST Office Visit [facility] Rheumatology [address] [place] [address] Perla Cohn MD, MPH [address] [place] [address] 203 [place] [address] 10/22/2025 3:45 PM EST Appointment [facility], Bone Density [address] [address] Deneen Wheatley DO 70 [place] [address] 11/10/2025 1:15 PM EST Office Visit [facility] Gastroenterology Clinic 10 [place] [address] Unknown, Unknown, Krysten Oliver, BEEF CATTLE GRAZIER [address] [phone] [email or web address] documented as of this encounter Visit Diagnoses Not on filedocumented in this encounter Care Teams Manager Internship Relationship Specialty Start Date End Date Deneen Wheatley DO [address] [place] [address] [email or web address] PCP - General Family Medicine 07/26/22 documented as of this encounter Additional Source Comments The information contained in this document represents components of the legal health record. It is not the complete legal health record.[facility]
--- OUTSIDE RECORDS SUMMARY | 2025-07-30 12:13 | XMS_ITS | Encounter Summary ---
Author Organization [facility] Address [address] [place] [address] Phone Care Team Providers Care Paper Bag Inspector Name Role Phone Deneen Wheatley Primary Care Provider [phone] Encounter Details Date Type Department Care Team (Late st Contact Info) Description 04/03/2024 Procedure Pass [facility], Ct Scan - [address] [address] Social History Tobacco Use Types Packs/Day Years [...] Upcoming Encounters Date Type Department Care Team ([facility] st Contact Info) Description 10/03/2025 10:00 AM EST Office Visit [facility] Pulmonary, Allergy and Critical Care Medicine 10 [place] [address] Michael Marlow MD 10 [facility] 2nd [place] [address] [email or web address] 10/09/2025 9:40 AM EST Office Visit [facility] Rheumatology [address] [place] [address] Perla Cohn MD, MPH [address] [place] [address] 203 [place] [address] 10/22/2025 3:45 PM EST Appointment [facility], Bone Density [address] [address] Deneen Wheatley DO 70 [place] [address] 11/10/2025 1:15 PM EST Office Visit [facility] Gastroenterology Clinic 10 [place] [address] Unknown, Unknown, Krysten Oliver, POWER SYSTEM ENGINEER [address] [phone] [email or web address] documented as of this encounter Visit Diagnoses Not on filedocumented in this encounter Care Teams Paper Bag Inspector Relationship Specialty Start Date End Date Deneen Wheatley DO [address] [place] [address] [email or web address] PCP - General Family Medicine 07/26/22 documented as of this encounter Additional Source Comments The information contained in this document represents components of the legal health record. It is not the complete legal health record.[facility]
--- OUTSIDE RECORDS SUMMARY | 2025-07-30 12:13 | XMS_ITS | Encounter Summary ---
Author Organization [facility] Address [address] [place] [address] Phone Care Team Providers Care Parachute Mender Name Role Phone Deenen Wheatley Primary Care Provider [phone] Encounter Details Date Type Department Care Team (Late st Contact Info) Description 12/19/2023 Procedure Pass [facility], Ct Scan - [address] [address] Social History Tobacco Use Types Packs/Day Years [...] Upcoming Encounters Date Type Department Care Team ([facility] st Contact Info) Description 10/03/2025 10:00 AM EST Office Visit [facility] Pulmonary, Allergy and Critical Care Medicine 10 [place] [address] Michael Marlow MD 10 [employer] 2nd [place] [address] [email or web address] 10/09/2025 9:40 AM EST Office Visit [facility] Rheumatology [address] [place] [address] Perla Cohn MD, MPH [address] [place] [address] 203 [place] [address] 10/22/2025 3:45 PM EST Appointment [facility], Bone Density [address] [address] Deneen Wheatley DO 70 [place] [address] 11/10/2025 1:15 PM EST Office Visit [facility] Gastroenterology Clinic 10 [place] [address] Unknown, Unknown, Krysten Oliver, HIGH SCHOOL ASSISTANT FOOTBALL COACH [address] [phone] [email or web address] documented as of this encounter Visit Diagnoses Not on filedocumented in this encounter Care Teams Parachute Mender Relationship Specialty Start Date End Date Deneen Wheatley DO [address] [place] [address] [email or web address] PCP - General Family Medicine 07/26/22 documented as of this encounter Additional Source Comments The information contained in this document represents components of the legal health record. It is not the complete legal health record.[facility]
--- OUTSIDE RECORDS SUMMARY | 2025-07-30 12:13 | XMS_ITS | Encounter Summary ---
Author Organization [facility] Address [address] [place] [address] Phone Care Team Providers Care Naval Architect Specialist Name Role Phone Deneen Wheatley DO Primary Care Provider Reason for Referral * MRI/CAT Scan - Closed Specialty Diagnoses / Procedures Referred By Contac t Referred To Contact Radiology Diagnoses Spondylosis without myelopathy or radiculopathy, lumbar region Procedures MRI Lumbar Spine CHG MRI, LUMBAR SPINE COMBO CHG MRI, LUMBAR SPINE CONTRAST Shayne Desouza DO [address] [place] [phone] Phone: tel: fax: mailto:[email or web address] Referral ID Status Reason Start Date Expiration Date Visits Re quested Visits Authorized [id number] Closed 03/01/2024 04/29/2024 1 1 * MRI/CAT Scan - Closed Specialty Diagnoses / Procedures Referred By Contac t Referred To Contact Radiology Diagnoses Cervical disc disorder with myelopathy, unspecified cervical region Procedures MRI Cervical Spine CHG MRI, CERV SPINE COMBO CHG MRI, CERV SPINE CONTRAST Shayne Desouza DO Phone: tel: fax: [email or web address] Referral ID Status Reason Start Date Expiration Date Visits Re quested Visits Authorized [id number] Closed 03/01/2024 04/29/2024 1 1 Encounter Details Date Type Department Care Team (Latest Contact Info) Description 03/04/2024 Transcribe Orders Virtual Department 30 [place] [address] Shayne Desouza DO [address] [place] [address] [email or web address] Cervical disc disorder with myelopathy, unspecified cervical [...] Critical Care Medicine 10 [facility] [place] [address] Michael Marlow MD 10 [facility] 2nd [place] [address] [email or web address] 10/09/2025 9:40 AM EST Office Visit [facility] Rheumatology 22 [place] [address] Perla Cohn MD, MPH 22 [facility], [address] [place] [address] 10/22/2025 3:45 PM EST Appointment [facility], Bone Density - [facility] 30 [place] [address] Deneen Wheatley DO 70 [place] [address] 11/10/2025 1:15 PM EST Office Visit [facility] Gastroenterology [facility] 10 [place] [address] Unknown, Unknown, Krysten Oliver, SCRAP IRON LOADER [address] [address] [email or web address] documented as of this encounter Results [...] clinician's provided indication for this examination in [facility]: Outside Radiology Order; CERVICAL DISC DISORDER WITH [...] clinician's provided indication for this examination in [facility]:Outside Radiology Order; CERVICAL DISC DISORDER WITH MYELOPATHY,UNSPECIFIED [...] and ligamentum flavum. Mild spinal canal stenosis. Azqb-my-gakuvhww bilateral foraminal stenosis. L5-S1: Disc bulge and [...] portion of the kidneys bilaterally. There are [id number] noted on the right hepatic lobe measuring [...] arthropathy and ligamentumflavum. Mild spinal canal stenosis. Lgom-um-dxwmeqos bilateral foraminalstenosis. L5-S1: Disc bulge and facet [...] region documented in this encounter Care Teams Naval Architect Specialist Relationship Specialty Start Date End Date Deneen Wheatley DO [address] [place] [address] [email or web address] PCP - General Family Medicine 07/26/22 documented as of this encounter Additional Source Comments The information contained in this document represents components of the legal health record. It is not the complete legal health record.[facility]
--- OUTSIDE RECORDS SUMMARY | 2025-07-30 12:13 | XMS_ITS | Encounter Summary ---
Author Organization [facility] Address [address] [place] [address] Phone Care Team Providers Care Can Washer Name Role Phone Deneen Wheatley Kimberly KIRAN Primary Care Provider Encounter Details Date Type Department Care Team (Late st Contact Info) Description 03/13/2024 Procedure Pass [facility], [address] [address] Social History Tobacco Use Types Packs/Day Years [...] Upcoming Encounters Date Type Department Care Team ([facility] st Contact Info) Description 10/03/2025 10:00 AM EST Office Visit [facility] Pulmonary, Allergy and Critical Care Medicine 10 [place] [address] Michael Marlow MD 10 [facility] 2nd [place] [address] [email or web address] 10/09/2025 9:40 AM EST Office Visit [facility] Rheumatology [address] [place] [address] Perla Cohn MD, MPH [address] [place] [address] 10/22/2025 3:45 PM EST Appointment [facility], Bone Density - [address] [address] Deneen Wheatley DO 70 [place] [address] 11/10/2025 1:15 PM EST Office Visit [facility] Gastroenterology [facility] 10 [place] [address] Unknown, Unknown, Krysten Oliver, TERMINAL GAUGER [address] [phone] [email or web address] documented as of this encounter Visit Diagnoses Not on filedocumented in this encounter Care Teams Can Washer Relationship Specialty Start Date End Date Deneen Wheatley DO [address] [place] [address] PCP - General Family Medicine 07/26/22 documented as of this encounter Additional Source Comments The information contained in this document represents components of the legal health record. It is not the complete legal health record.[facility]
--- OUTSIDE RECORDS SUMMARY | 2025-07-30 12:13 | XMS_ITS | Encounter Summary ---
Author Organization [facility] Address [address] [place] [address] Phone Care Team Providers Care Fuel Buyer Name Role Phone Deneen Wheatley DO Primary Care Provider Deneen Wheatley DO Primary Care Provider Encounter Details Date Type Department Care Team (Late Contact Info) Description 04/19/2022 Procedure Pass [facility], [address] [address] Social History Tobacco Use Types Packs/Day Years [...] Medicine 10 [facility] [place] [address] Michael Marlow MD 10 [facility] 2nd [place] [address] [email or web address] 10/09/2025 9:40 AM EST Office Visit [facility] Rheumatology 22 [place] [address] Perla Cohn MD, MPH 22 [facility], [address] [place] [address] 10/22/2025 3:45 PM EST Appointment [facility], Bone Density - [facility] 30 [place] [address] Deneen Wheatley DO 70 [place] [address] 11/10/2025 1:15 PM EST Office Visit [facility] Gastroenterology Clinic 10 [place] [address] Unknown, Unknown, MD Alba, Krysten Queen, DIGITAL RECRUITER [address] [address] [email or web address] documented as of this encounter Visit Diagnoses Not on filedocumented in this encounter Additional Health Concerns Infection Onset Date Last Indicated Resolved Time CoV-Risk Comment:Per note documentation 03/10/2023 03/10/2023 4:32 PM EDT documented as of this encounter Care Teams Fuel Buyer Relationship Specialty Start Date End Date Deneen Wheatley DO PCP - General Family Medicine 05/04/21 07/25/22 Deneen Wheatley DO [address] [place] [address] [email or web address] PCP - General Family Medicine 07/26/22 documented as of this encounter Additional Source Comments The information contained in this document represents components of the legal health record. It is not the complete legal health record.[facility]
--- OUTSIDE RECORDS SUMMARY | 2025-07-30 12:13 | XMS_ITS | Encounter Summary ---
Author Organization [facility] Address [address] [place] [address] Phone Care Team Providers Care Conference Planning Manager Name Role Phone Deneen Wheatley DO Primary Care Provider [phone] Deneen Wheatley DO Primary Care Provider [phone] Reason for Referral * MRI/CAT Scan - Closed Specialty Diagnoses / Procedures Referred By Monty hernandez Referred To Contact Radiology Diagnoses Sensorineural hearing loss, bilateral Tinnitus, bilateral Dizziness and giddiness Procedures MRI Brain CHG MRI BRAIN COMBO CHG MRI BRAIN CHG MRI BRAIN CONTRAST Ernie Lira MD Phone: tel: fax: [email or web address] Referral ID Status Reason Start Date Expiration Date Visits Re quested Visits Authorized [id number] Closed 10/22/2021 12/20/2021 1 1 Encounter Details Date Type Department Care Team (Latest Contact Info) Description 10/22/2021 Transcribe Orders Virtual Department 30 [place] [address] Ernie Lira MD [address], [address] [place] [address] Sensorineural hearing loss, bilateral (Primary Dx); Tinnitus, [...] Pulmonary, Allergy and Critical Care Medicine 10 [facility] [address] Michael Marlow MD [address] [address] [email or web address] 10/09/2025 9:40 AM EST Office Visit [facility] Rheumatology [address] [place] [address] Perla Cohn MD, MPH 22 [facility], [address] [place] [address] 10/22/2025 3:45 PM EST Appointment [facility], Bone Density - [facility] 30 [place] [address] Deneen Wheatley DO 70 [place] [address] [email or web address] 11/10/2025 1:15 PM EST Office Visit [facility] Gastroenterology Clinic [address] [place] [address] Unknown, Unknown, Krysten Oliver, INSTRUMENTATION CONTROLS ENGINEER 10 [facility] 2 [place] [address] [email or web address] documented as of [...] present in the major vessels of the [place] of [place] and the dural venous sinuses. [...] present in the major vessels of the [place] the dural venous sinuses. No [...] documented as of this encounter Care Teams Conference Planning Manager Relationship Specialty Start Date End Date Deneen Wheatley DO PCP - General Family Medicine 05/04/21 07/25/22 Deneen Wheatley DO [address] [place] [address] PCP - General Family Medicine 07/26/22 documented as of this encounter Additional Source Comments The information contained in this document represents components of the legal health record. It is not the complete legal health record.[facility]
--- OUTSIDE RECORDS SUMMARY | 2025-07-30 12:13 | XMS_ITS | Encounter Summary ---
Author Organization [facility] Address [address] [place] [address] Phone Care Team Providers Care Associate Material Handler Name Role Phone Deneen Wheatley DO Primary Care Provider Deneen Wheatley DO Primary Care Provider Encounter Details Date Type Department Care Team (Late Contact Info) Description 05/10/2021 Procedure Pass [facility], [address] [address] Social History Tobacco Use Types Packs/Day Years [...] Critical Care Medicine 10 [facility] [place] [address] Michael Marlow MD 10 [facility] 2nd [place] [address] [email or web address] 10/09/2025 9:40 AM EST Office Visit [facility] Rheumatology 22 [place] [address] Perla Cohn MD, MPH 22 [facility], [address] [place] [address] 10/22/2025 3:45 PM EST Appointment [facility], Bone Density - [facility] 30 [place] [address] Deneen Wheatley DO 70 [place] [address] 11/10/2025 1:15 PM EST Office Visit [facility] Gastroenterology Clinic 10 [place] [address] Unknown, Unknown, MD Alba, Krysten Queen, ASSISTANT MANAGER QUALITY MANAGEMENT [address] [address] [email or web address] documented as of this encounter Visit Diagnoses Not on filedocumented in this encounter Additional Health Concerns Infection Onset Date Last Indicated Resolved Time CoV-Risk Comment:Per note documentation 03/10/2023 03/10/2023 4:32 PM EDT documented as of this encounter Care Teams Associate Material Handler Relationship Specialty Start Date End Date Deneen Wheatley DO PCP - General Family Medicine 05/04/21 07/25/22 Deneen Wheatley DO [address] [place] [address] [email or web address] PCP - General Family Medicine 07/26/22 documented as of this encounter Additional Source Comments The information contained in this document represents components of the legal health record. It is not the complete legal health record.[facility]
--- OUTSIDE RECORDS SUMMARY | 2025-07-30 12:13 | XMS_ITS | Encounter Summary ---
Author Organization [facility] Address [address] [place] [address] Phone Care Team Providers Care Drill Punch Operator Name Role Phone Deneen Wheatley Kimberly KIRAN Primary Care Provider Encounter Details Date Type Department Care Team (Late st Contact Info) Description 03/04/2024 Procedure Pass [facility], [address] [address] Social History Tobacco Use Types Packs/Day Years [...] Upcoming Encounters Date Type Department Care Team ([facility] st Contact Info) Description 10/03/2025 10:00 AM EST Office Visit [facility] Pulmonary, Allergy and Critical Care Medicine 10 [place] [address] Michael Marlow MD 10 [facility] 2nd [place] [address] [email or web address] 10/09/2025 9:40 AM EST Office Visit [facility] Rheumatology [address] [place] [address] Perla Cohn MD, MPH [address] [place] [address] 10/22/2025 3:45 PM EST Appointment [facility], Bone Density - [address] [address] Deneen Wheatley DO 70 [place] [address] 11/10/2025 1:15 PM EST Office Visit [facility] Gastroenterology Clinic 10 [place] [address] Unknown, Unknown, Krysten Oliver, PANEL GLUER [address] [id number] [email or web address] documented as of this encounter Visit Diagnoses Not on filedocumented in this encounter Care Teams Drill Punch Operator Relationship Specialty Start Date End Date Deneen Wheatley DO [address] [place] [address] PCP - General Family Medicine 07/26/22 documented as of this encounter Additional Source Comments The information contained in this document represents components of the legal health record. It is not the complete legal health record.[facility]
--- OUTSIDE RECORDS SUMMARY | 2025-07-30 12:13 | XMS_ITS | Encounter Summary ---
Author Organization [facility] Address [address] [place] [address] Phone Care Team Providers Care Labor Relations Manager Name Role Phone Deneen Wheatley DO Primary Care Provider Deneen Wheatley DO Primary Care Provider [phone] Encounter Details Date Type Department Care Team (Late st Contact Info) Description 07/18/2022 Procedure Pass [facility], [address] [address] Social History Tobacco Use Types Packs/Day Years [...] Pulmonary, Allergy and Critical Care Medicine 10 [facility] [place] [address] Michael Marlow MD 10 [facility] 2nd [place] [address] [email or web address] 10/09/2025 9:40 AM EST Office Visit [facility] Rheumatology 22 [place] [address] Perla Cohn MD, MPH 22 [facility], [address] [place] [address] 10/22/2025 3:45 PM EST Appointment [facility], Bone Density - [facility] 30 [place] [address] Deneen Wheatley DO 70 [place] [address] 11/10/2025 1:15 PM EST Office Visit [facility] Gastroenterology Clinic 10 [place] [address] Unknown, Unknown, Krysten Oliver, BALLISTICS TESTER [address] [address] [email or web address] documented as of this encounter Visit Diagnoses Not on filedocumented in this encounter Additional Health Concerns Infection Onset Date Last Indicated Resolved Time CoV-Risk Comment:Per note documentation 03/10/2023 03/10/2023 3 4:32 PM EDT documented as of this encounter Care Teams Labor Relations Manager Relationship Specialty Start Date End Date Deneen Wheatley DO PCP - General Family Medicine 8/3/21 10/24/22 Deneen Wheatley DO [address] [place] [address] PCP - General Family Medicine 07/26/22 documented as of this encounter Additional Source Comments The information contained in this document represents components of the legal health record. It is not the complete legal health record.[facility]
--- OUTSIDE RECORDS SUMMARY | 2025-07-30 12:13 | XMS_ITS | Encounter Summary ---
Author Organization [facility] Address [address] [place] [address] Phone Care Team Providers Care Supervisor Industrial Arts Education Name Role Phone Deneen Wheatley DO Primary Care Provider [phone] Deneen Wheatley DO Primary Care Provider Encounter Details Date Type Department Care Team (Late Contact Info) Description 07/21/2022 Procedure Pass [facility] 30 [place] [address] Social History Tobacco Use Types Packs/Day Years [...] Allergy and Critical Care Medicine 10 [facility] [place] [address] Michael Marlow MD 10 [facility] 2nd [place] [address] [email or web address] 10/09/2025 9:40 AM EST Office Visit [facility] Rheumatology 22 [place] [address] Perla Cohn MD, MPH 22 [facility], [address] [place] [address] 10/22/2025 3:45 PM EST Appointment [facility], Bone Density - [facility] 30 [place] [address] Deneen Wheatley DO 70 [place] [address] 11/10/2025 1:15 PM EST Office Visit [facility] Gastroenterology Clinic 10 [place] [address] Unknown, Unknown, MD Alba, Krysten Queen, RACK PULLER [address] [address] [email or web address] documented as of this encounter Visit Diagnoses Not on filedocumented in this encounter Additional Health Concerns Infection Onset Date Last Indicated Resolved Time CoV-Risk Comment:Per note documentation 03/10/2023 03/10/2023 4:32 PM EDT documented as of this encounter Care Teams Supervisor Industrial Arts Education Relationship Specialty Start Date End Date Deneen Wheatley DO PCP - General Family Medicine 05/04/21 07/25/22 Deneen Wheatley DO [address] [place] [address] [email or web address] PCP - General Family Medicine 07/26/22 documented as of this encounter Additional Source Comments The information contained in this document represents components of the legal health record. It is not the complete legal health record.[facility]
--- OUTSIDE RECORDS SUMMARY | 2025-07-30 12:13 | XMS_ITS | Encounter Summary ---
Author Organization [facility] Address [address] [place] [address] Phone Care Team Providers Care Beauty Sales Consultant Name Role Phone lBue Rojo MD Primary Care Provider Deneen Wheatley DO Primary Care Provider Deneen Wheatley DO Primary Care Provider Encounter Details Date Type Department Care Team (Late st Contact Info) Description 02/18/2019 Procedure Pass [place] Admitting Dept - Virtual Department 30 [place] [address] Social History Tobacco Use Types Packs/Day Years [...] Pulmonary, Allergy and Critical Care Medicine 10 [facility] [address] Michael Marlow MD 10 [facility] 2nd [place] [address] [email or web address] 10/09/2025 9:40 AM EST Office Visit [facility] Rheumatology 22 [place] [address] Perla Cohn MD, MPH [address] [address] 10/22/2025 3:45 PM EST Appointment [facility], Bone Density - [facility] 30 [place] [address] Deneen Wheatley DO 70 [place] [address] 11/10/2025 1:15 PM EST Office Visit [facility] Gastroenterology Clinic 10 [place] [address] Unknown, Unknown, Krysten Oliver, PAINT DEPARTMENT SUPERVISOR [address] [address] [email or web address] documented as of this encounter Visit Diagnoses Not on filedocumented in this encounter Additional Health Concerns Infection Onset Date Last Indicated Resolved Time CoV-Risk 06/11/2020 06/12/2020 06/25/2020 1:23 AM EDT CoV-Risk Comment:Per note documentation 03/10/2023 03/10/2023 4:32 PM EDT documented as of this encounter Care Teams Beauty Sales Consultant Relationship Specialty Start Date End Date Blue Rojo MD [email or web address] PCP - General 07/20/17 05/03/21 Deneen Wheatley DO PCP - General Family Medicine 05/04/21 07/25/22 Deneen Wheatley DO [address] [place] [address] PCP - General Family Medicine 07/26/22 documented as of this encounter Additional Source Comments The information contained in this document represents components of the legal health record. It is not the complete legal health record.[facility]
--- OUTSIDE RECORDS SUMMARY | 2025-07-30 12:13 | XMS_ITS | Encounter Summary ---
Author Organization [facility] Address [address] [place] [address] Phone Care Team Providers Care Unit Assembler Name Role Phone Blue Rojo MD Primary Care Provider Deneen Wheatley DO Primary Care Provider Deneen Wheatley DO Primary Care Provider Encounter Details Date Type Department Care Team (Late st Contact Info) Description 11/30/2018 Procedure Pass [facility], [address] [address] Social History Tobacco Use Types Packs/Day Years [...] Pulmonary, Allergy and Critical Care Medicine 10 [facility] [place] [address] Michael Marlow MD 10 [facility] 2nd [place] [address] [email or web address] 10/09/2025 9:40 AM EST Office Visit [facility] Rheumatology 22 [place] [address] Perla Cohn MD, MPH 22 [facility] 203 [place] [address] 10/22/2025 3:45 PM EST Appointment [facility], Bone Density - [facility] 30 [place] [address] Deneen Wheatley DO 70 [place] [address] 11/10/2025 1:15 PM EST Office Visit [facility] Gastroenterology Clinic 10 [place] [address] Unknown, Unknown, Krysten Oliver, SLUBBER MACHINE OPERATOR [address] [address] [email or web address] documented as of this encounter Visit Diagnoses Not on filedocumented in this encounter Additional Health Concerns Infection Onset Date Last Indicated Resolved Time CoV-Risk 06/11/2020 06/12/2020 06/25/2020 1:23 AM EDT CoV-Risk Comment:Per note documentation 03/10/2023 03/10/2023 4:32 PM EDT documented as of this encounter Care Teams Unit Assembler Relationship Specialty Start Date End Date Blue Rojo MD [email or web address] PCP - General 07/20/17 05/03/21 Deneen Wheatley DO PCP - General Family Medicine 05/04/21 07/25/22 Deneen Wheatley DO [address] [place] [address] PCP - General Family Medicine 07/26/22 documented as of this encounter Additional Source Comments The information contained in this document represents components of the legal health record. It is not the complete legal health record.[facility]
--- OUTSIDE RECORDS SUMMARY | 2025-07-30 12:14 | XMS_ITS | Encounter Summary ---
Author Organization [facility] Address [address] [address] Phone Care Team Providers Care Ct Technician Name Role Phone Deneen Wheatley Primary Care Provider Reason for Visit * Reason Onset Date Comments Results 07/28/2025 Encounter Details Date Type Department Care Team ([facility] st Contact Info) Description 07/28/2025 Telephone [facility] Pulmonary, Allergy and Critical Care Medicine 10 [place] [address] Michael Marlow MD [address] [address] [email or web address] Results Social History Tobacco Use Types Packs/Day Years [...] PM EST documented as of this encounter Progress Notes * Michael Marlow MD - 07/29/2025 9:10 AM EDT Previously, sent patient a portal test result message. Stable/no change regarding chest CT findings. * SivaLeonor colon - 07/28/2025 4:48 PM EDT PT lm on the triage line to f/u on ct chest results are ready? Please advise. [facility] Call Center CSS Agent (Please do not reply to this user, as this inbox is not monitored. Thank you.) Thank you. documented in this encounter Plan of Treatment Upcoming Encounters Date Type Department Care Team (Late st Contact Info) Description 10/03/2025 10:00 AM EST Office Visit [facility] Pulmonary, Allergy and Critical Care Medicine 10 [place] [address] Michael Marlow MD 10 [facility] 2nd [place] [address] [email or web address] 10/09/2025 9:40 AM EST Office Visit [facility] Rheumatology [address] [place] [address] Perla Cohn MD, MPH 22 [facility], [address] [address] 10/22/2025 3:45 PM EST Appointment [facility], Bone Density - [facility] 30 [place] [address] Deneen Wheatley DO 70 [place] [address] 11/10/2025 1:15 PM EST Office Visit [facility] Gastroenterology Clinic 10 [place] [address] Unknown, Unknown, Krysten Oliver, SQUARE CUTTER [address] [address] [email or web address] documented as of this encounter Visit Diagnoses Not on filedocumented in this encounter Care Teams Ct Technician Relationship Specialty Start Date End Date Deneen Wheatley DO 70 [place] [address] PCP - General Family Medicine 07/26/22 documented as of this encounter Additional Source Comments The information contained in this document represents components of the legal health record. It is not the complete legal health record.[facility]
--- OUTSIDE RECORDS SUMMARY | 2025-07-30 12:14 | XMS_ITS | Encounter Summary ---
Author Organization [facility] Address [address] [place] [address] Phone Care Team Providers Care Plant Reliability Engineer Name Role Phone Deneen Wheatley Primary Care Provider Encounter Details Date Type Department Care Team (Late st Contact Info) Description 10/17/2023 Procedure Pass [facility], Ct Scan - [address] [address] Social History Tobacco Use Types Packs/Day Years [...] Upcoming Encounters Date Type Department Care Team ([facility] st Contact Info) Description 10/03/2025 10:00 AM EST Office Visit [facility] Pulmonary, Allergy and Critical Care Medicine 10 [place] [address] Michael Marlow MD 10 [facility] 2nd [place] [address] [email or web address] 10/09/2025 9:40 AM EST Office Visit [facility] Rheumatology [address] [place] [address] Perla Cohn MD, MPH [address] [place] [address] 203 [place] [address] 10/22/2025 3:45 PM EST Appointment [facility], Bone Density [address] [address] Deneen Wheatley DO 70 [place] [address] 11/10/2025 1:15 PM EST Office Visit [facility] Gastroenterology Clinic 10 [place] [address] Unknown, Unknown, Krysten Oliver, IP TECHNOLOGY TRANSACTIONS ATTORNEY [address] [phone] [email or web address] documented as of this encounter Visit Diagnoses Not on filedocumented in this encounter Care Teams Plant Reliability Engineer Relationship Specialty Start Date End Date Deneen Wheatley DO [address] [place] [address] [email or web address] PCP - General Family Medicine 07/26/22 documented as of this encounter Additional Source Comments The information contained in this document represents components of the legal health record. It is not the complete legal health record.[facility]
--- OUTSIDE RECORDS SUMMARY | 2025-07-30 12:14 | XMS_ITS | Encounter Summary ---
Author Organization [facility] Address [address] [place] [address] Phone Care Team Providers Care Squeegee Finisher Name Role Phone Blue Rojo MD Primary Care Provider [phone] Deneen Wheatley DO Primary Care Provider Deneen Wheatley DO Primary Care Provider Encounter Details Date Type Department Care Team (Late st Contact Info) Description 10/26/2018 Procedure Pass [place] Admitting Dept - Virtual Department 30 [place] [address] Social History Tobacco Use Types Packs/Day Years [...] Critical Care Medicine 10 [place] [address] Michael Malrow MD 10 [facility] 2nd [place] [address] [email or web address] 10/09/2025 9:40 AM EST Office Visit [facility] Rheumatology 22 [place] [address] Perla Cohn MD, MPH [address] [address] 10/22/2025 3:45 PM EST Appointment [facility], Bone Density - [facility] 30 [place] [address] Deneen Wheatley DO 70 [place] [address] 11/10/2025 1:15 PM EST Office Visit [facility] Gastroenterology Clinic 10 [place] [address] Unknown, Unknown, Krysten Oliver, MAINTENANCE SERVICE TECHNICIAN [address] [address] [email or web address] documented as of this encounter Visit Diagnoses Not on filedocumented in this encounter Additional Health Concerns Infection Onset Date Last Indicated Resolved Time CoV-Risk 06/11/2020 06/12/2020 06/25/2020 1:23 AM EDT CoV-Risk Comment:Per note documentation 03/10/2023 03/10/2023 4:32 PM EDT documented as of this encounter Care Teams Squeegee Finisher Relationship Specialty Start Date End Date Blue Rojo MD [email or web address] PCP - General 07/20/17 05/03/21 Deneen Wheatley DO PCP - General Family Medicine 05/04/21 07/25/22 Deneen Wheatley DO [address] [place] [address] PCP - General Family Medicine 07/26/22 documented as of this encounter Additional Source Comments The information contained in this document represents components of the legal health record. It is not the complete legal health record.[facility]
--- OUTSIDE RECORDS SUMMARY | 2025-07-30 12:14 | XMS_ITS | Encounter Summary ---
Author Organization [facility] Address [address] [place] [address] Phone Care Team Providers Care Rack Maker Name Role Phone Deneen Wheatley DO [...] ABDOMEN Laci Corona MD Phone: tel: fax: mailto:[email or web address] Referral ID Status Reason Start Date Expiration Date Visits Re quested Visits Authorized [id number] Closed 09/06/2022 11/04/2022 1 1 Encounter Details Date Type Department Care Team (Latest Contact Info) Description 09/06/2022 Transcribe Orders Virtual Department 30 [place] [address] Laci Felix MD 10 [facility] 2 [place] [address] Elevated lipase (Primary Dx); Elevated LFTs; Vomiting, [...] Pulmonary, Allergy and Critical Care Medicine 10 [facility] [address] Michael Marlow MD [address] [address] [email or web address] 10/09/2025 9:40 AM EST Office Visit [facility] Rheumatology [address] [place] [address] Perla Cohn MD, MPH [address] [address] 10/22/2025 3:45 PM EST Appointment [facility], Bone Density - [facility] 30 [place] [address] Deneen Wheatley DO 70 [place] [address] 11/10/2025 1:15 PM EST Office Visit [facility] Gastroenterology Clinic 10 [facility] [place] [address] Unknown, Unknown, Krysten Oliver, PALM GATHERER 10 [facility] 2 [place] [address] [email or web address] documented as of this encounter Results [...] documented as of this encounter Care Teams Rack Maker Relationship Specialty Start Date End Date Deneen Wheatley DO [address] [place] [address] [email or web address] PCP - General Family Medicine 07/26/22 documented as of this encounter Additional Source Comments The information contained in this document represents components of the legal health record. It is not the complete legal health record.[facility]
--- OUTSIDE RECORDS SUMMARY | 2025-07-30 12:14 | XMS_ITS | Encounter Summary ---
Author Organization [facility] Address [address] [place] [address] Phone Care Team Providers Care Furs Salesperson Name Role Phone Deneen Wheatley Primary Care Provider Encounter Details Date Type Department Care Team (Late st Contact Info) Description 09/06/2022 Procedure Pass [facility], Ct Scan - [address] [address] Social History Tobacco Use Types Packs/Day Years [...] Pulmonary, Allergy and Critical Care Medicine 10 [facility] [place] [address] Michael Marlow MD 10 [facility] 2nd [place] [address] [email or web address] 10/09/2025 9:40 AM EST Office Visit [facility] Rheumatology 22 [place] [address] Perla Cohn MD, MPH 22 [facility], [address] [place] [address] 10/22/2025 3:45 PM EST Appointment [facility], Bone Density - [facility] 30 [place] [address] Deneen Wheatley DO 70 [place] [address] 11/10/2025 1:15 PM EST Office Visit [facility] Gastroenterology Clinic 10 [place] [address] Unknown, Unknown, Krysten Oliver, RN INTEGRATED [address] [address] [email or web address] documented as of this encounter Visit Diagnoses Not on filedocumented in this encounter Additional Health Concerns Infection Onset Date Last Indicated Resolved Time CoV-Risk Comment:Per note documentation 03/10/2023 03/10/2023 3 4:32 PM EDT documented as of this encounter Care Teams Furs Salesperson Relationship Specialty Start Date End Date Deneen Wheatley DO 70 [place] [address] PCP - General Family Medicine 07/26/22 documented as of this encounter Additional Source Comments The information contained in this document represents components of the legal health record. It is not the complete legal health record.[facility]
--- OUTSIDE RECORDS SUMMARY | 2025-07-30 12:14 | XMS_ITS | Encounter Summary ---
Author Organization [facility] Address [address] [place] [id number] Phone Care Team Providers Care Forensic Medical Examiner Name Role Phone Deneen Wheatley Primary Care Provider [phone] Encounter Details Date Type Department Care Team ([facility] st Contact Info) Description 07/28/2025 Documentation CD Pulmonary, Allergy and Critical Care Medicine 10 [facility] [place] [address] Michael Marlow MD [address] [address] Social History Tobacco Use Types Packs/Day Years [...] Progress Notes * Michael Marlow MD - 07/28/2025 5:22 PM EDT PFTs from 07/21/2025: - Normal spirometry without airflow limitation. Normal lung volumes. Isolated, mild diffusion impairment. No significant interval change when compared to prior studies (most recently, from 07/2024). - Resting oxygen saturation of 92% on room air. HRCT chest from 07/21/2025 (in comparison to prior chest CT studies dating back to 10/19/2023): - Similar overall extent and distribution of interstitial lung disease in a probable UIP pattern. - Similar 4 mm right upper lobe pulmonary nodule. No new pulmonary nodules demonstrated. documented in this encounter Plan of Treatment Upcoming Encounters Date Type Department Care Team (Late st Contact Info) Description 10/03/2025 10:00 AM EST Office Visit [facility] Pulmonary, Allergy and Critical Care Medicine 10 [place] [address] Michael Marlow MD [address] [place] [address] [email or web address] 10/09/2025 9:40 AM EST Office Visit [facility] Rheumatology [address] [place] [address] Perla Cohn MD, MPH 22 [facility], [facility] [address] [place] [address] 10/22/2025 3:45 PM EST Appointment [facility], Bone Density - [facility] 30 [place] [address] Deneen Wheatley DO [address] [place] [address] 11/10/2025 1:15 PM EST Office Visit [facility] [address] [place] [address] Unknown, Unknown, Krysten Oliver, MANAGER RECRUITMENT [address] [place] [address] [email or web address] documented as of this encounter Visit Diagnoses Not on filedocumented in this encounter Care Teams Forensic Medical Examiner Relationship Specialty Start Date End Date Deneen Wheatley DO [address] [place] [address] PCP - General Family Medicine 07/26/22 documented as of this encounter Additional Source Comments The information contained in this document represents components of the legal health record. It is not the complete legal health record.[facility]
--- OUTSIDE RECORDS SUMMARY | 2025-07-30 12:14 | XMS_ITS | Encounter Summary ---
Author Organization [facility] Address [address] [place] [address] Phone Care Team Providers Care Transport Pilot Name Role Phone Blue Rojo MD Primary Care Provider [phone] Deneen Wheatley DO Primary Care Provider Deneen Wheatley DO Primary Care Provider Encounter Details Date Type Department Care Team (Late st Contact Info) Description 01/09/2018 Procedure Pass [facility], [address] [address] Social History Tobacco Use Types Packs/Day Years [...] Pulmonary, Allergy and Critical Care Medicine 10 [place] [address] Michael Marlow MD 10 [facility] 2nd [place] [address] [email or web address] 10/09/2025 9:40 AM EST Office Visit [facility] Rheumatology 22 [place] [address] Perla Cohn MD, MPH 22 [facility] 203 [place] [address] 10/22/2025 3:45 PM EST Appointment [facility], Bone Density - [facility] 30 [place] [address] Deneen Wheatley DO 70 [place] [address] 11/10/2025 1:15 PM EST Office Visit [facility] Gastroenterology Clinic 10 [place] [address] Unknown, Unknown, Krysten Oliver, AQUATICS INSTRUCTOR [address] [address] [email or web address] documented as of this encounter Visit Diagnoses Not on filedocumented in this encounter Additional Health Concerns Infection Onset Date Last Indicated Resolved Time CoV-Risk 06/11/2020 06/12/2020 06/25/2020 1:23 AM EDT CoV-Risk Comment:Per note documentation 03/10/2023 03/10/2023 4:32 PM EDT documented as of this encounter Care Teams Transport Pilot Relationship Specialty Start Date End Date Blue Rojo MD [email or web address] PCP - General 07/20/17 05/03/21 Deneen Wheatley DO PCP - General Family Medicine 05/04/21 07/25/22 Deneen Wheatley DO [address] [place] [address] PCP - General Family Medicine 07/26/22 documented as of this encounter Additional Source Comments The information contained in this document represents components of the legal health record. It is not the complete legal health record.[facility]
--- OUTSIDE RECORDS SUMMARY | 2025-07-30 12:14 | XMS_ITS | Encounter Summary ---
Author Organization [facility] Address [address] [place] [address] Phone Care Team Providers Care Kelp Or Seagrass Gatherer Name Role Phone Deneen Wheatley Primary Care Provider [phone] Encounter Details Date Type Department Care Team (Latest Contact Info) Description 10/17/2023 Transcribe Orders Virtual Department 30 [place] [address] Delilah Blackman PA-C [address] [place] [address] [email or web address] Chest pain, unspecified type (Primary Dx) Social [...] Care Medicine 10 [facility] [place] [address] Michael Marlow MD 10 [facility] 2nd [place] [address] [email or web address] 10/09/2025 9:40 AM EST Office Visit [facility] Rheumatology 22 [place] [address] Perla Cohn MD, MPH 22 [facility], [facility] 203 [place] [address] 10/22/2025 3:45 PM EST Appointment [facility], Bone Density - [facility] 30 [place] [address] Deneen Wheatley DO 70 [place] [address] 11/10/2025 1:15 PM EST Office Visit [facility] 10 [place] [address] Unknown, Unknown, Krysten Oliver, AIR BAG BUFFER 10 [facility] 2 [place], [place] [id number] [email or web address] documented as of this encounter Visit Diagnoses Diagnosis Chest pain, unspecified type- Primary documented in this encounter Care Teams Kelp Or Seagrass Gatherer Relationship Specialty Start Date End Date Deneen Wheatley DO [address] [place] [address] PCP - General Family Medicine 07/26/22 documented as of this encounter Additional Source Comments The information contained in this document represents components of the legal health record. It is not the complete legal health record.[facility]
--- OUTSIDE RECORDS SUMMARY | 2025-07-30 12:15 | XMS_ITS | Clinical Summary ---
Author Organization [facility] Address [address] [place] [address] Phone Care Team Providers Care Roller Print Tender Name Role Phone Deneen Wheatley DO [...] 3 (three) times a day. Active vitamins A,C,M-otgf-wrcqn r (PRESERVISION AREDS) [id number] Cap Take 1 capsule by mouth 2 [...] voice. Furthermore, she was previously seen by [facility] (Dr. [...] sure whether she could travel down to [place]). Also discussed trying empiric therapies for chronic [...] 12 inhalations in 24 hours) - Provided home health care provider coupon for Airsupra to reduce copay - [...] RF (with negative CCP). Previously, seen by [facility] [place] pain clinic and neurology, in addition to [...] complex regional pain symdrome, incompletely documented by [facility] in our records Morbid obesity [...] Encounters Date Type Department Care Team Description 5 Documentation [facility] Pulmonary, Allergy and Critical Care Medicine [address] [place] [address] Michael Marlow MD 5 Telephone [facility] Pul[facility], Allergy [facility] Critical Care Medicine [address] [place] [address] Michael Marlow MD Results 5 9:19 AM EDT - 5 11:59 PM EDT Hospital Encounter [facility], Ct Scan - [address] [address] Michael Marlow MD Discharge Disposition: Home or Self Care 5 8:10 AM EDT - 5 9:18 AM EDT Hospital Encounter [facility] PFT Lab [address] [place] [address] Michael Marlow MD Discharge Disposition: Home or Self Care 5 Transcribe Orders [facility] PFT Lab [address] [place] [address] Michael Marlow MD 5 12:00 PM EDT - 5 12:15 PM EDT Surgery [facility] Endoscopy Admitting Dept Virtual Department [address] [place] [address] Laci Noguera MD ESOPHAGOGASTRODUODENOSCOPY 5 10:53 AM EDT Anesthesia Event [facility] Endoscopy Admitting Dept Virtual Department [address] [place] [address] Ray Dave MD 5 10:14 AM EDT - 5 11:46 AM EDT Hospital Encounter [facility] Endoscopy Admitting Dept Virtual Department [address] [place] [address] Laci Noguera MD Discharge Disposition: Home or Self Care 5 Procedure Pass [facility] Endoscopy Admitting Dept Virtual Department [address] [place] [address] 5 9:00 AM EDT Pre-Admission Testing Pre Procedure Evaluation [address] [place] [address] Laci Noguera MD 5 11:02 AM EDT - 5 2:47 PM EDT Emergency [facility] Emergency [address] [place] [address] Discharge Disposition: Home or Self Care 5 Procedure Pass [address] [address] 5 Telephone [facility] Pulmonary, Allergy and Critical Care Medicine [address] [place] [address] Pamela Black Clearance 5 Procedure Pass [address] [address] from Last 3 Months Immunizations Immunization Administration [...] Pulmonary, Allergy and Critical Care Medicine [address] [place] [address] Michael Marlow MD [address] [address] [email or web address] 10/09/2025 9:40 AM EST Office Visit [facility] Rheumatology [address] [place] [address] Perla Cohn MD, MPH 22 [facility], [facility] [address] [place] [address] 10/22/2025 3:45 PM EST Appointment [facility], Bone Density - [facility] [address] [place] [address] Deneen Wheatley DO [address] [place] [address] 11/10/2025 1:15 PM EST Office Visit [facility] Gastroenterology Clinic [address] [place] [address] Unknown, Unknown, Krysten Oliver, HAM SAWYER [address] [place] [phone] [email or web address] Health Maintenance Due Date Last [...] 09/28/2017 INFLUENZA VACCINE (#1) 2025 COVID-19 VACCINE ( season) 2025 10/23/2021, 04/06/2021, 03/09/2021 CREATININE LEVEL [...] this topic Medical Devices Implanted Type Area Die Engraver Device Identifier Shelf Expiration Date Model / Serial / Lot Cement Bone Biomet Standard R 1x40 Us - [id number] Implanted:Qty: 2 on 02/18/2019 by Wero Dominiuqe MD at [facility] Right: Knee SERENE / DIV OF BRISTOL SQUIBB 03/01/2023 [id number] / / [id number] Button Patella [id number] Knee Vanguard Uhmwpe Single Peg Series A Standard - [id number] Implanted:Qty: 1 on 02/18/2019 by Wero Dominique MD at [facility] Right: Knee [employer] 01/01/2024 [id number] / / [id number] Knee Component 67.5mm Femoral Cruciate Vanguard Titanium Retaining Right - [id number] Implanted:Qty: 1 on 02/18/2019 by Wero Dominique MD at [facility] Right: Knee SERENE / DIV OF I & Combine 2027 [id number] / / [id number] Tray 71mm Tibial Knee Vanguard Total Titanium Primary Interlock Cemented - [id number] Implanted:Qty: 1 on 02/18/2019 by Wero Dominique MD at [facility] Right: Knee [employer] 12/15/2028 [id number] / / [id number] Beam I L 40mm Od 10 Aoc Aadc Operations Staff Officer Stem Knee Prmary Stablzed Fnned Mpl Ascent Maxm - [id number] Implanted:Qty: 1 on 02/18/2019 by Wero Dominique MD at [facility] Right: Knee [employer] 02/01/2029 [id number] / / [id number] Knee Tibial Bearing E1 Vanguard Crl 71/75 X 14 Knee 08 - Discontinued Per Tjr Vat - [id number] Implanted:Qty: 1 on 02/18/2019 by Wero Dominique MD at 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; recent kidney stone AR COLONOSCOPY W/BIOPSY SINGLE/MULTIPLE 07/01/2025 10:52 AM EDT Gastroesophagea l reflux disease with esophagitis, unspecified whether hemorrhage Colon cancer screening Special Needs NIDDM(on Metformin-instructed by office); 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; recent kidney stone AR COLONOSCOPY FLX DX W/TRACY J SPEC WHEN PFRMD 07/01/2025 10:52 AM EDT Gastroesophagea l reflux disease with esophagitis, unspecified whether hemorrhage Colon cancer screening Special Needs NIDDM(on Metformin-instructed by office); 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; recent kidney stone AR EGD ABLATE TUMOR POLYP/LESION W/DILATION& WIRE 07/01/2025 10:52 AM EDT Gastroesophagea l reflux disease with esophagitis, unspecified whether hemorrhage Colon cancer screening Special Needs NIDDM(on Metformin-instructed by office); 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; recent kidney stone AR EDG TRANSORAL BIOPSY SINGLE/MULTIPLE 07/01/2025 10:52 AM EDT Gastroesophagea l reflux disease with esophagitis, unspecified whether hemorrhage Colon cancer screening Special Needs NIDDM(on Metformin-instructed by office); 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 Similar overall extent and distribution of interstitial lung disease again and probable UIP pattern. 2. Similar 4 mm right upper lobe pulmonary nodule. No new pulmonary nodules demonstrated. Narrative 07/28/2025 11:[address] CHEST (HIGH RESOLUTION) WITHOUT CONTRAST Referring clinician's provided indication for this examination in Epic: Interstital Lung Disease; interval 12-month evaluation of ILD (does NOT need to be HRCT) TECHNIQUE: Multidetector CT of the chest was performed without intravenous contrast using tailored dose modulation techniques. Thin inspiratory, expiratory and inspiratory prone images were obtained as part of a high-resolution chest CT protocol. COMPARISON: CT CHEST WITHOUT CONTRAST ; CT CHEST (HIGH RESOLUTION) WITHOUT CONTRAST ; CT CHEST WITH CONTRAST FINDINGS: Devices/Tubes/Lines: None. Lungs: Similar overall extent and distribution of peripheral subpleural reticulation, architectural distortion, and traction bronchiectasis and bronchiolectasis as compared to prior studies dating to October 2023. Findings are confirmed on prone imaging. No air trapping demonstrated on expiratory imaging. There is a similar 4 mm nodule at the right upper lobe (6:161). No new pulmonary nodules demonstrated. There are scattered areas of peripheral The central airways are otherwise patent. No focal consolidation. Pleura: No pleural effusion or pneumothorax. Mediastinum: Atherosclerotic calcification of the aorta and major aortic branch vessels. No thyroid nodules. The heart is similar in size. There is no pericardial effusion. Mild amount of coronary calcifications. Lymph Nodes: Similar mildly prominent mediastinal lymph nodes measuring up to 0.8 cm in short axis. No new adenopathy Upper Abdomen: Surgical clips in the gallbladder fossa. Atherosclerotic calcification of the aorta. Small hiatal hernia. Absence of intravenous contrast limits sensitivity for detecting solid organ findings. Chest Wall: Limited evaluation of the breast parenchyma by CT. Bones: Multilevel degenerative changes of the spine. Dextrocurvature of the thoracic spine. No destructive osseous lesions. Procedure Note Elina Robb MD - 07/28/2025 CT CHEST (HIGH RESOLUTION) WITHOUT CONTRAST Referring clinician's provided indication for this examination in Epic:Interstital Lung Disease; interval 12-month evaluation of ILD (does NOTneed to be HRCT) TECHNIQUE: Multidetector CT of the chest was performed without intravenouscontrast using tailored dose modulation techniques. Thin inspiratory,expiratory and inspiratory prone images were obtained as [facility]. COMPARISON: CT CHEST WITHOUT CONTRAST ; CT CHEST (HIGHRESOLUTION) WITHOUT CONTRAST ; CT CHEST WITH [id number] FINDINGS: Devices/Tubes/Lines: None. Lungs: Similar overall extent and distribution of peripheral subpleuralreticulation, architectural distortion, and traction bronchiectasis andbronchiolectasis as compared to prior studies dating to October 2023.Findings are confirmed on prone imaging. No air trapping demonstrated onexpiratory imaging. There is a similar 4 mm nodule at the right upper lobe(6:161). No new pulmonary nodules demonstrated. There are scattered areasof peripheral The central airways are otherwise patent. No focalconsolidation. Pleura: No pleural effusion or pneumothorax. Mediastinum: Atherosclerotic calcification of the aorta and major aorticbranch vessels. No thyroid nodules. The heart is similar in size. There isno pericardial effusion. Mild amount of coronary calcifications. Lymph Nodes: Similar mildly prominent mediastinal lymph nodes measuring upto 0.8 cm in short axis. No new adenopathy Upper Abdomen: Surgical clips in the gallbladder fossa. Atheroscleroticcalcification of the aorta. Small hiatal hernia. Absence of intravenouscontrast limits sensitivity for detecting solid organ findings. Chest Wall: Limited evaluation of the breast parenchyma by CT. Bones: Multilevel degenerative changes of the spine. Dextrocurvature ofthe thoracic spine. No destructive osseous lesions. IMPRESSION: 1. Similar overall extent and distribution of interstitial lung diseaseagain and probable UIP pattern. 2. Similar 4 mm right upper lobe pulmonary nodule. No new pulmonarynodules demonstrated. us Michael Marlow MD IMG CT CHEST Final Result * Pulmonary Function Test Reason for Exam: Asthma, Interstitial Lung Disease; Type of PFT Test: Spirometry with bronchodilator, DLCO, Lung Volumes; Performing Location: [facility] (07/21/2025 9:19 AM EDT) FEV1 1.73 [...] limitation. Technical Note: As of 08/13/2024, the [facility] Pulmonary Function Testing (PFT) Laboratory transitioned [...] please contact the interpreting physician or PFT supervisor cytogenetic laboratory. For further discussion of this issue please see Iwona et al [facility] 2022;2078):978. Please Note: Not all PFT labs within, [...] Noguera MD - 07/01/2025 10:49 AM EDT [facility] Patient Name: Maxine Ivan Attending MD:: LACI NOGUERA MD, , Procedure Date: 07/01/2025 10:49 AM Date of : 1950 Age: 75 Admit Type: Outpatient Gender: [facility] Referring MD: Deneen Wheatley Exam Type: Upper [...] 10:49 AM Procedure Code(s): --- Professional --- 65960, Esophagogastroduodenoscopy, flexible, transoral; with biopsy, single or multiple --- Technical --- 21117, Esophagogastroduodenoscopy, flexible, transoral; with biopsy, single or multiple Diagnosis Code(s): --- Professional --- K31.89, Other diseases of stomach and duodenum K44.9, Diaphragmatic hernia without obstruction or gangrene K20.90, Esophagitis, unspecified without bleeding R12, Heartburn --- Technical --- K31.89, Other diseases of stomach and duodenum K44.9, Diaphragmatic hernia without obstruction or gangrene K20.90, Esophagitis, unspecified without bleeding R12, Heartburn CPT copyright 2021 [employer]. All rights reserved. The codes documented in this report are preliminary and upon medical billing coder reviewmay be revised to meet current compliance requirements. Procedure Date: 07/01/2025 10:49:[address] [place] [address] Deneen Wheatley DO GI PROCEDURE ORDERABLES Latonia camarena Result * ENDOSCOPY, COLON (07/01/2025 10:48 AM EDT) Narrative Transcriptions Laci Noguera MD - 07/01/2025 10:48 AM EDT [facility] Patient Name: Maxine Ivan Attending MD:: LACI NOGUERA MD, , Procedure Date: 07/01/2025 10:48 AM Date of : 1950 Age: 75 Admit Type: Outpatient Gender: Female Room: [place] [address] Referring MD: Deneen Wheatley Exam Type: Colonoscopy [...] 10:48 AM Procedure Code(s): --- Professional --- 72727, Colonoscopy, flexible; with removal of tumor(s), polyp(s), or other lesion(s) by snare technique --- Technical --- 60765, Colonoscopy, flexible; with removal of tumor(s), polyp(s), [...] or abscess without bleeding CPT copyright 2021 [employer]. All rights reserved. The codes documented in this report are preliminary and upon medical billing coder reviewmay be revised to meet current compliance requirements. Procedure Date: 07/01/2025 10:48:[address] [place] [address] us Deneen Camarena Wheatley DO GI PROCEDURE ORDERABLES Latonia l Result * Anatomic Pathology (07/01/2025 12:00 AM EDT) Report [address] [address] Assembler Cards And Announcements: Jorge Bedolla MD Surgical Pathology Report FINAL [...] single cassette labeled C1. Grossed by: JOCELIN Canas, MILES([facility]) [id number] 07/01/2025 Grossing Staff: [id number] Patient Name: MAXINE IVAN : 1950 (Age: 75) Sex: F Institution: [facility] Date of Operation: 07/01/2025 Date of Reported: 07/02/2025 14:38 Results To: Laci Noguera MD, BS, MS Deneen Wheatley DO [facility] Clinical History Gastroesophageal reflux disease with esophagitis, unspecified whether hemorrhage [K21.00] Colon cancer screening [Z12.11] [facility] Final Diagnosis A. STOMACH, BIOPSY: No pathologic abnormalities. B. GASTROESOPHAGEAL JUNCTION BIOPSY: No pathologic abnormalities. C. DESCENDING COLON POLYP: Adenomatous polyp. [facility] Gross Description A. STOMACH, BIOPSY: Received in formalin are [...] labeled C1. Grossed by: JOCELIN Canas PA(ASCP) [facility] Conversion Type 07/01/2025 1:26 PM EDT us Laci Noguera MD PATHOLOGY ORDERABLES Edited Resu lt - Final [address] [address] * CT ABDOMEN/PELVIS WITH CONTRAST (06/19/2025 12:51 PM EDT) Anatomical Region Laterality Modality Abdomen, Pelvis Computed Tomogra phy 06/19/2025 1:5 2 PM EDT Impressions 06/19/2025 2:08 PM EDT [...] clinician's provided indication for this examination in [facility]:RLQ abdominal pain, appendicitis suspected (Age >= 14y); appendicitis vskidney stone TECHNIQUE: Multidetector-row CT of the abdomen and pelvis was performedafter administration of intravenous contrast using tailored dosemodulation techniques. Images were reconstructed in the axial, coronal,and sagittal planes. COMPARISON: CT ABDOMEN/PELVIS WITHOUT CONTRAST ; US ABDOMENLIMITED RIGHT UPPER QUADRANT ; CT ABDOMEN WITH [id number]; CT CHEST WITHOUT CONTRAST FINDINGS: Lower Chest: [...] (06/19/2025 11:32 AM EDT) COLOR Yellow Yellow [facility] CLARITY Clear [facility] GLUCOSE Negative Negative [facility] BILI Negative Negative [facility] KETONES Negative Negative [facility] SPECIFIC GRAVITY 1.025 1.005 - 1.030 [facility] BLOOD 1+(A) Negative [facility] PH 6.0 5.0 - 8.0 [facility] Protein-UA Negative Negative [facility] NITRITE Negative Negative [facility] Leukocyte esterase, ur Negative Negative [facility] Urine (Urine) 06/19/2025 11: 32 AM EDT 06/19/2025 11:58 AM EDT Lewis Harper MD URINE ORDERABLES Final Result Performing Organization Address [facility] Co de Phone Number [address] [address] * (ABNORMAL) Urine sediment (06/19/2025 11:32 AM EDT) WBC 0-4(A) NONE SEEN /hpf [facility] RBC 21-49(A) NONE SEEN /hpf [facility] URINE EPITHELIAL 5-10(A) NONE SEEN [facility] MUCUS Trace(A) NONE SEEN /hpf [facility] BACTERIA 1+(A) NONE SEEN /hpf [facility] 06/19/2025 11:3 2 AM EDT 06/19/2025 11:58 AM EDT Lewis Harper MD URINE ORDERABLES Final Result Performing Organization Address City/[facility]/ZIP Co de Phone Number [address] [address] * (ABNORMAL) LFTs (hepatic panel) (06/19/2025 11:26 AM EDT) ALKALINE PHOSPHATASE 141(H) 39 - 117 U/L [facility] TOTAL BILIRUBIN 0.8 0.0 - 1.2 mg/dL [facility] DIRECT BILIRUBIN 0.2 0.0 - 0.2 mg/dL [facility] Bilirubin (Indirect) 0.6 0 - 1.5 mg/dL [facility] AST 24 0 - 37 U/L [facility] ALT 12 0 - 40 U/L [facility] TOTAL PROTEIN 6.9 6.5 - 8.0 g/dL [facility] ALBUMIN 3.8(L) 3.9 - 4.8 g/dL [facility] GLOBULIN 3.1 1 - 4.8 g/dL [facility] A/G Ratio 1.23 1.00 - 4.80 RATIO [facility] Blood 06/19/2025 11:2 6 AM EDT 06/19/2025 11:46 AM EDT us Lewis Harper MD LAB BLOOD ORDERAB LES Final Result Performing Organization Address City/State/[facility] Co de Phone Number [address] [address] * (ABNORMAL) CBC and differential (06/19/2025 11:26 AM EDT) WBC 10.23 4.00 - 11.00 K/uL [facility] RBC 5.09 4.00 - 5.20 M/uL [facility] HGB 15.6 12.0 - 16.0 g/dL [facility] HCT 48.7(H) 36.0 - 46.0 % [facility] PLT 207 150 - 450 K/uL [facility] MCV 95.7 80.0 - 100.0 [facility] MCH 30.6 27.0 - 31.0 pg [facility] MCHC 32.0 32.0 - 36.0 g/dL [facility] RDW 13.1 11.5 - 14.5 % [facility] MPV 10.0 8.4 - 12.0 [facility] NRBC 0.00 0.00 /100 WBCs [facility] ABSOLUTE NRBC 0.00 0.00 K/uL [facility] DIFF METHOD Auto [facility] NEUTS 77.3(H) 48.0 - 76.0 % [facility] LYMPHS 10.8(L) 18.0 - 41.0 % [facility] MONOS 9.2 4.0 - 11.0 % [facility] EOS 1.7 0.0 - 5.0 % [facility] BASOS 0.6 0.0 - 1.5 % [facility] Granulocytes, immature (%) 0.4 0.0 - 0.9 % [facility] ABSOLUTE NEUTS 7.92(H) 1.92 - 7.60 K/uL [facility] ABSOLUTE LYMPHS 1.10 0.72 - 4.10 K/uL [facility] ABSOLUTE MONOS 0.94 0.16 - 1.10 K/uL [facility] ABSOLUTE EOS 0.17 0.00 - 0.50 K/uL [facility] ABSOLUTE BASOS 0.06 0.00 - 0.15 K/uL [facility] Granulocytes, immature 0.04 0.00 - 0.09 K/uL [facility] Blood 06/19/2025 11:2 6 AM EDT 06/19/2025 11:46 AM EDT us Lewis Harper MD LAB BLOOD ORDERAB LES Final Result [address] [address] * (ABNORMAL) Lipase (06/19/2025 11:26 AM EDT) LIPASE 78(H) 16 - 63 U/L [facility] Blood 06/19/2025 11:2 6 AM EDT 06/19/2025 11:46 AM EDT us Lewis Harper MD LAB BLOOD ORDERAB LES Final Result Performing Organization Address City/[facility]/ZIP Co de Phone Number [address] [address] * (ABNORMAL) Basic metabolic panel (06/19/2025 11:26 AM EDT) SODIUM 139 133 - 146 mmol/L [facility] CHLORIDE 104 96 - 108 mmol/L [facility] POTASSIUM 4.3 3.3 - 5.1 mmol/L [facility] CO2 22 21 - 35 mmol/L [facility] BUN 19 6 - 19 mg/dL [facility] CREATININE 1.20 0.5 - 1.5 mg/dL [facility] GLUCOSE 168(H) 70 - 99 mg/dL [facility] CALCIUM 9.7 8.4 - 10.3 mg/dL [facility] EGFR 48(L) >59 mL/min/1.7 3m2 [facility] Comment:Estimated glomerular filtration rate calculated using the CKD-EPI refit equation. ANION GAP 17 10 - 20 mmol/L [facility] Blood 06/19/2025 11:2 6 AM EDT 06/19/2025 11:46 AM EDT Lewis Harper MD LAB BLOOD ORDERAB LES Final Result Performing Organization Address City/State/[facility] Co de Phone Number [facility] [address] [place] [address] from Last 3 Months Insurance [employer] [place]IC[place] PPO BLUE [place] [address] [place] [address] MEDICARE PPO BLUE REPLACEMENT [facility] [[email or web address] MEDICARE PPO BLUE REPLACEMENT [facility] [[email or web address] MEDICARE PPO BLUE REPLACEMENT [facility] [[email or web address]] MEDICARE PPO BLUE REPLACEMENT [facility] [[email or web address] MEDICARE PPO BLUE REPLACEMENT [facility] [[email or web address]] MEDICARE PPO BLUE REPLACEMENT [facility] [[email or web address]] MEDICARE PPO BLUE REPLAC[place] BLUE RE[place]ACEMENT Advance Directives For more information, please contact: [phone] (9AM - 5PM [facility], Monday-Monday) * Full Code (Presumed) (Latest Code Status on File) Date Activated Date Inactivated Comments 02/18/2019 2:58 PM 02/26/2019 5:00 PM * Full Code (Presumed) Date Activated Date Inactivated Comments 02/18/2019 7:51 AM 02/18/2019 2:58 PM * Full Code (Presumed) Date Activated Date Inactivated Comments 10/25/2018 6:42 PM 10/29/2018 4:56 PM Care Teams Roller Print Tender Relationship Specialty Start Date End Date Deneen Wheatley DO [address] [place] [address] PCP - General Family Medicine 07/26/22 Additional Source Comments The information contained in this document represents components of the legal health record. It is not the complete legal health record.[facility]
--- OUTSIDE RECORDS SUMMARY | 2025-07-30 12:15 | XMS_ITS | Encounter Summary ---
Author Organization [facility] Address [address] [place] [address] Phone Care Team Providers Care Real Estate Professional Name Role Phone Deneen Wheatley DO Primary [...] C-/C+ Delilah Blackman PA-C Phone: tel: fax: [email or web address] Referral ID Status Reason Start Date Expiration Date Visits Re quested Visits Authorized [id number] Closed 10/17/2023 12/15/2023 1 1 Encounter Details Date Type Department Care Team ([facility] st Contact Info) Description 10/17/2023 Ancillary Orders Virtual Department 30 [place] [address] Delilah Blackman PA-C [address] Davis, Alejandro. [address] [place] [address] [email or web address] Chest pain, unspecified type (Primary Dx); Wheezing [...] Allergy and Critical Care Medicine 10 [facility] [place] [address] Michael Marlow MD [address] [place] [address] [email or web address] 10/09/2025 9:40 AM EST Office Visit [facility] Rheumatology [address] [place] [address] [place] [address] Perla Cohn MD, MPH 22 [facility], [address] [place] [address] 10/22/2025 3:45 PM EST Appointment [facility], Bone Density - [facility] 30 [place] [address] Deneen Wheatley, 70 [place] [address] 11/10/2025 1:15 PM EST Office Visit [facility] Gastroenterology Clinic 10 [place] [address] Unknown, Unknown, MD Alba, Krysten Queen, ACCOUNTS RECEIVABLE ASSISTANT [address] [address] [email or web address] documented as of this encounter Results [...] Wheezing documented in this encounter Care Teams Real Estate Professional Relationship Specialty Start Date End Date Deneen Wheatley DO [address] [place] [address] PCP - General Family Medicine 07/26/22 documented as of this encounter Additional Source Comments The information contained in this document represents components of the legal health record. It is not the complete legal health record.[facility]
--- OUTSIDE RECORDS SUMMARY | 2025-07-30 12:15 | XMS_ITS | Encounter Summary ---
Author Organization [facility] Address [address] [place] [address] Phone Care Team Providers Care Softball Core Molder Name Role Phone Blue Rojo MD Primary Care Provider Deneen Wheatley DO Primary Care Provider [phone] Deneen Wheatley DO Primary Care Provider [phone] Encounter Details Date Type Department Care Team (Late st Contact Info) Description 09/09/2020 Procedure Pass [facility], Ct Scan - [address] [address] Social History Tobacco Use Types Packs/Day Years [...] and Critical Care Medicine 10 [facility] [place] [address] Michael Marlow MD 10 [facility] 2nd [place] [address] [email or web address] 10/09/2025 9:40 AM EST Office Visit [facility] Rheumatology 22 [place] [address] Perla Cohn MD, MPH 22 [facility], [facility] 203 [place] [address] 10/22/2025 3:45 PM EST Appointment [facility], Bone Density - [facility] 30 [place] [address] Deneen Wheatley DO 70 [place] [address] 11/10/2025 1:15 PM EST Office Visit [facility] 10 [place] [address] Unknown, Unknown, Krysten Oliver, LAMINATION INSPECTOR [address] [address] [email or web address] documented as of this encounter Visit Diagnoses Not on filedocumented in this encounter Additional Health Concerns Infection Onset Date Last Indicated Resolved Time CoV-Risk Comment:Per note documentation 03/10/2023 03/10/2023 3 4:32 PM EDT documented as of this encounter Care Teams Softball Core Molder Relationship Specialty Start Date End Date Blue Rojo MD [email or web address] PCP - General 07/20/17 05/03/21 Deneen Wheatley DO PCP - General Family Medicine 05/04/21 07/25/22 Deneen Wheatley DO [address] [place] [address] [email or web address] PCP - General Family Medicine 07/26/22 documented as of this encounter Additional Source Comments The information contained in this document represents components of the legal health record. It is not the complete legal health record.[facility]
--- OUTSIDE RECORDS SUMMARY | 2025-07-30 12:15 | XMS_ITS | Encounter Summary ---
Author Organization [facility] Address [address] [place] [address] Phone Care Team Providers Care French Comber Name Role Phone Deneen Wheatley DO Primary Care Provider [phone] Encounter Details Date Type Department Care Team (Latest Contact Info) Description 04/17/2025 Transcribe Orders Virtual Department 30 [place] [address] Deneen Wheatley DO 70 [place], [place] [id number] [email or web address] Asymptomatic menopausal state (Primary Dx) [...] Description 10/03/2025 10:00 AM EST Office [place] [facility] [place], Allergy and Critical Care Medicine 10 [facility] [place] [address] Michael Marlow MD 10 [facility] 2nd [place] [address] [email or web address] 10/09/2025 9:40 AM EST Office Visit [facility] Rheumatology 22 [place] [address] Perla Cohn MD, MPH 22 [facility], [address] [place] [address] 10/22/2025 3:45 PM EST Appointment [facility], Bone Density - [facility] 30 [place] [address] Deneen Wheatley DO 70 [place] [address] 11/10/2025 1:15 PM EST Office Visit [facility] Gastroenterology Clinic 10 [place] [address] Unknown, Unknown, Krysten Oliver, TENTER FRAME OPERATOR [address] [address] [email or web address] Scheduled Orders Name Type Priority Associated Diagnoses Orde r Schedule DXA Screening Imaging Routine Asymptomatic menopausal state Expected: 05/17/2025, Expires: 04/17/2026 documented as of this encounter Visit Diagnoses Diagnosis Asymptomatic menopausal state- Primary documented in this encounter Care Teams French Comber Relationship Specialty Start Date End Date Deneen Wheatley DO 70 [place] [address] [email or web address] PCP - General Family Medicine 07/26/22 documented as of this encounter Additional Source Comments The information contained in this document represents components of the legal health record. It is not the complete legal health record.[facility]
--- OUTSIDE RECORDS SUMMARY | 2025-07-30 12:15 | XMS_ITS | Encounter Summary ---
Author Organization [facility] Address [address] [place] [address] Phone Care Team Providers Care Private Duty Lpn Name Role Phone Blue Rojo MD Primary Care Provider Deneen Wheatley DO Primary Care Provider Deneen Wheatley DO Primary Care Provider [phone] Encounter Details Date Type Department Care Team (Late st Contact Info) Description 12/09/2019 Procedure Pass [facility]oscopy Admitting Dept Virtual Department 30 [place] [address] Social History Tobacco Use Types Packs/Day Years [...] Pulmonary, Allergy and Critical Care Medicine 10 [facility] [place] [address] Michael Marlow MD 10 [facility] 2nd [place] [address] [email or web address] 10/09/2025 9:40 AM EST Office Visit [facility] Rheumatology 22 [place] [address] Perla Cohn MD, MPH [address] [address] 10/22/2025 3:45 PM EST Appointment [facility], Bone Density - [facility] 30 [place] [address] Deneen Wheatley DO 70 [place] [address] 11/10/2025 1:15 PM EST Office Visit [facility] Gastroenterology Clinic 10 [place] [address] Unknown, Unknown, Krysten Oliver, GUT SORTER [address] [address] [email or web address] documented as of this encounter Visit Diagnoses Not on filedocumented in this encounter Additional Health Concerns Infection Onset Date Last Indicated Resolved Time CoV-Risk 06/11/2020 06/12/2020 06/25/2020 1:23 AM EDT CoV-Risk Comment:Per note documentation 03/10/2023 03/10/2023 4:32 PM EDT documented as of this encounter Care Teams Private Duty Lpn Relationship Specialty Start Date End Date Blue Rojo MD [email or web address] PCP - General 07/20/17 05/03/21 Deneen Wheatley DO PCP - General Family Medicine 05/04/21 07/25/22 Deneen Wheatley DO [address] [place] [address] PCP - General Family Medicine 07/26/22 documented as of this encounter Additional Source Comments The information contained in this document represents components of the legal health record. It is not the complete legal health record.[facility]
--- OUTSIDE RECORDS SUMMARY | 2025-07-30 12:15 | XMS_ITS | Encounter Summary ---
Author Organization [facility] Address [address] [place] [address] Phone Care Team Providers Care Supercharger Repair Supervisor Name Role Phone Blue Rojo MD Primary Care Provider Deneen Wheatley DO Primary Care Provider Deneen Wheatley DO Primary Care Provider [phone] Reason for Referral * MRI/CAT Scan - Closed Specialty Diagnoses / Procedures Referred By Monty hernandez Referred To Contact Radiology Diagnoses Chronic sore throat Procedures CT Neck Rex Yanez MD Phone: tel: fax: [email or web address] Referral ID Status Reason Start Date Expiration Date Visits Re quested Visits Authorized [id number] Closed 09/02/2020 03/01/2021 1 1 Encounter Details Date Type Department Care Team (Late st Contact Info) Description 09/09/2020 Ancillary Orders Virtual Department 30 [place] [address] Rex Yanez MD 100 [facility], [facility] 100 [place] [address] [email or web address] Chronic sore throat Social History Tobacco [...] Pulmonary, Allergy and Critical Care Medicine 10 [place] [address] Michael Marlow MD 10 [facility] 2nd [place] [address] [email or web address] 10/09/2025 9:40 AM EST Office Visit [facility] Rheumatology [address] [place] [address] Perla Cohn MD, MPH [address] [address] 10/22/2025 3:45 PM EST Appointment [facility], Bone Density - [address] [address] Deneen Wheatley DO 70 [place] [address] 11/10/2025 1:15 PM EST Office Visit [facility] Gastroenterology Clinic 10 [place] [address] Unknown, Unknown, Krysten Oliver, COLOR SPRAYER [address] [address] [email or web address] documented as of this encounter [...] documented as of this encounter Care Teams Supercharger Repair Supervisor Relationship Specialty Start Date End Date Blue Rojo MD PCP - General 07/20/17 05/03/21 Deneen Wheatley DO [email or web address] PCP - General Family Medicine 05/04/21 07/25/22 Deneen Wheatley DO [address] [place] [address] PCP - General Family Medicine 07/26/22 documented as of this encounter Additional Source Comments The information contained in this document represents components of the legal health record. It is not the complete legal health record.[facility]
--- OUTSIDE RECORDS SUMMARY | 2025-07-30 12:15 | XMS_ITS | Encounter Summary ---
Author Organization [facility] Address [address] [place] [address] Phone Care Team Providers Care Trauma Program Manager Name Role Phone Blue Rojo MD Primary Care Provider [phone] Deneen Wheatley DO Primary Care Provider Deneen Wheatley DO Primary Care Provider Encounter Details Date Type Department Care Team (Late st Contact Info) Description 11/12/2019 Ancillary Orders [facility], X-Ray - [facility] 30 [place] [address] Shayne Desouza DO 766 [place], [place] [id number] [email or web address] Social History Tobacco Use Types Packs/Day [...] Medicine 10 [facility] [place] [address] Michael Marlow MD 10 [facility] 2nd [place] [address] [email or web address] 10/09/2025 9:40 AM EST Office Visit [facility] Rheumatology [address] [place] [address] Perla Cohn MD, MPH 22 [facility], [address] [place] [address] 10/22/2025 3:45 PM EST Appointment [facility], Bone Density - [facility] 30 [place] [address] Deneen Wheatley DO 70 [place] [address] 11/10/2025 1:15 PM EST Office Visit [facility] Gastroenterology Clinic 10 [place] [address] Unknown, Unknown, Krysten Oliver, WET CROWN BLOCKING OPERATOR [address] [id number] [email or web address] documented as of this encounter [...] documented as of this encounter Care Teams Trauma Program Manager Relationship Specialty Start Date End Date Blue Rojo MD [email or web address] PCP - General 07/20/17 05/03/21 Deneen Wheatley DO PCP - General Family Medicine 05/04/21 07/25/22 Deneen Wheatley DO [address] [place] [address] PCP - General Family Medicine 07/26/22 documented as of this encounter Additional Source Comments The information contained in this document represents components of the legal health record. It is not the complete legal health record.[facility]
--- OUTSIDE RECORDS SUMMARY | 2025-07-30 12:15 | XMS_ITS | Encounter Summary ---
Author Organization [facility] Address [address] [place] [address] Phone Care Team Providers Care Palliative Nurse Name Role Phone Deneen Wheatley Primary Care Provider Encounter Details Date Type Department Care Team (Late st Contact Info) Description 08/20/2024 Procedure Pass [facility] Endoscopy Admitting Dept Virtual Department 30 [place] [address] Social History Tobacco Use Types Packs/Day Years [...] Pulmonary, Allergy and Critical Care Medicine 10 [place] [address] Michael Marlow MD [address] [address] [email or web address] 10/09/2025 9:40 AM EST Office Visit [facility] Rheumatology [address] [place] [address] Perla Cohn MD, MPH 22 [facility], [address] [address] 10/22/2025 3:45 PM EST Appointment [facility], Bone Density - [facility] 30 [place] [address] Deneen Wheatley DO 70 [place] [address] 11/10/2025 1:15 PM EST Office Visit [facility] Gastroenterology Clinic 10 [place] [address] Unknown, Unknown, Krysten Oliver, HANDHOLE MACHINE OPERATOR [address] [place] [address] [email or web address] documented as of this encounter Visit Diagnoses Not on filedocumented in this encounter Care Teams Palliative Nurse Relationship Specialty Start Date End Date Deneen Wheatley DO [address] [place] [address] PCP - General Family Medicine 07/26/22 documented as of this encounter Additional Source Comments The information contained in this document represents components of the legal health record. It is not the complete legal health record.[facility]
--- OUTSIDE RECORDS SUMMARY | 2025-07-30 12:16 | XMS_ITS | Encounter Summary ---
Author Organization [facility] Address [address] [place] [address] Phone Care Team Providers Care Process Design Engineer Name Role Phone Deneen Wheatley Kimberly KIRAN Primary Care Provider Encounter Details Date Type Department Care Team (Late st Contact Info) Description 06/19/2025 Procedure Pass [facility], Ct Scan - [address] [address] Social History Tobacco Use Types Packs/Day Years [...] 06/19/2025 11:01 AM Prince Draper, RN * [place] Suicide Severity Rating Scale (Screener/Recent Self-Report) Question [...] Pulmonary, Allergy and Critical Care Medicine 10 [facility] [place] [address] Michael Marlow MD 10 [facility] 2nd [place] [address] [email or web address] 10/09/2025 9:40 AM EST Office Visit [facility] Rheumatology [address] [place] [address] Perla Cohn MD, MPH [address] [address] 10/22/2025 3:45 PM EST Appointment [facility], Bone Density - [facility] 30 [place] [address] Deneen Wheatley DO 70 [place] [address] 11/10/2025 1:15 PM EST Office Visit [facility] Gastroenterology Clinic 10 [place] [address] Unknown, Unknown, Krysten Oliver, GAUGER CHIEF DELIVERY [address] [address] [email or web address] documented as of this encounter Visit Diagnoses Not on filedocumented in this encounter Care Teams Process Design Engineer Relationship Specialty Start Date End Date Deneen Wheatley DO [address] [place] [address] [email or web address] PCP - General Family Medicine 07/26/22 documented as of this encounter Additional Source Comments The information contained in this document represents components of the legal health record. It is not the complete legal health record.[facility]
--- OUTSIDE RECORDS SUMMARY | 2025-07-30 12:16 | XMS_ITS | Clinical Summary ---
Author Organization [facility] Address [address] [id number] Care Team Providers Care General Merchandise Manager Name Role Phone Deneen Wheatley MD Primary Care Provider [phone] Allergies Active Allergy Reactions Criticality Noted Date [...] day. 2 Active vitamins A,C,E-zinc-francisco er [id number] tsxw-ux-qhvr capsule Take 1 capsule by mouth. Active [...] Insurance BCBS MCR REPLACE PPO Care Teams General Merchandise Manager Relationship Specialty Start Date End Date Deneen Wheatley MD [address] [place] [address] PCP - General 03/14/22
--- OUTSIDE RECORDS SUMMARY | 2025-07-30 12:16 | XMS_ITS | Encounter Summary ---
Author Organization [facility] Address [address] [place] [address] Phone Care Team Providers Care Sulfur Burner Name Role Phone Deneen Wheatley Primary Care Provider Encounter Details Date Type Department Care Team (Late st Contact Info) Description 07/01/2025 Procedure Pass [facility] Endoscopy Admitting Dept Virtual Department 30 [place] [address] Social History Tobacco Use Types Packs/Day Years [...] 07/01/2025 10:37 AM Yamile Perrin RN * [place] Suicide Severity Rating Scale (Screener/Recent Self-Report) Question [...] Medicine 10 [facility] [place] [address] Michael Marlow MD 10 [facility] 2nd [place] [address] [email or web address] 10/09/2025 9:40 AM EST Office Visit [facility] Rheumatology 22 [place] [address] Perla Cohn MD, MPH [address] [address] 10/22/2025 3:45 PM EST Appointment [facility], Bone Density - [address] [address] Deneen Wheatley DO 70 [place] [address] 11/10/2025 1:15 PM EST Office Visit [facility] Gastroenterology Clinic 10 [place] [address] Unknown, Unknown, Krysten Oliver, CASTING ASSOCIATE [address] [phone] [email or web address] documented as of this encounter Visit Diagnoses Not on filedocumented in this encounter Care Teams Sulfur Burner Relationship Specialty Start Date End Date Deneen Wheatley DO 70 [place] [address] [email or web address] PCP - General Family Medicine 07/26/22 documented as of this encounter Additional Source Comments The information contained in this document represents components of the legal health record. It is not the complete legal health record.[facility]
--- OUTSIDE RECORDS SUMMARY | 2025-07-30 12:16 | XMS_ITS | Encounter Summary ---
Author Organization [facility] Address [address] [place] [address] Phone Care Team Providers Care Row Boss Name Role Phone Blue Rojo MD Primary Care Provider [phone] Deneen Wheatley DO Primary Care Provider [phone] Deneen Wheatley DO Primary Care Provider Encounter Details Date Type Department Care Team (Late st Contact Info) Description 04/26/2021 Procedure Pass [facility] Endoscopy Admitting Dept Virtual Department 30 [place] [address] Social History Tobacco Use Types Packs/Day Years [...] Pulmonary, Allergy and Critical Care Medicine 10 [facility] [place] [place] [address] Michael Marlow MD 10 [facility] 2nd [place] [address] [email or web address] 10/09/2025 9:40 AM EST Office Visit [facility] Rheumatology 22 [place] [address] Perla Cohn MD, MPH 22 [facility] 203 [place] [address] 10/22/2025 3:45 PM EST Appointment [facility], Bone Density - [facility] 30 [place] [address] Deneen Wheatley DO 70 [place] [address] 11/10/2025 1:15 PM EST Office Visit [facility] Gastroenterology Clinic 10 [place] [address] Unknown, Unknown, Krysten Oliver, TACK COVERER [address] [address] [email or web address] documented as of this encounter Visit Diagnoses Not on filedocumented in this encounter Additional Health Concerns Infection Onset Date Last Indicated Resolved Time CoV-Risk Comment:Per note documentation 03/10/2023 03/10/2023 3 4:32 PM EDT documented as of this encounter Care Teams Row Boss Relationship Specialty Start Date End Date Blue Rojo MD [email or web address] PCP - General 07/20/17 05/03/21 Deneen Wheatley DO PCP - General Family Medicine 05/04/21 07/25/22 Deneen Wheatley DO [address] [place] [address] [email or web address] PCP - General Family Medicine 07/26/22 documented as of this encounter Additional Source Comments The information contained in this document represents components of the legal health record. It is not the complete legal health record.[facility]
--- OUTSIDE RECORDS SUMMARY | 2025-07-30 12:16 | XMS_ITS | Encounter Summary ---
Author Organization [facility] Address [address] [place] [address] Phone Care Team Providers Care Service Agent Name Role Phone Deneen Wheatley Kimberly KIRAN Primary Care Provider Encounter Details Date Type Department Care Team (Late st Contact Info) Description 10/16/2024 Procedure Pass [facility], Ct Scan - [address] [address] Social History Tobacco Use Types Packs/Day Years [...] Pulmonary, Allergy and Critical Care Medicine 10 [place] [address] Michael Marlow MD [address] [address] [email or web address] 10/09/2025 9:40 AM EST Office Visit [facility] Rheumatology [address] [place] [address] Perla Cohn MD, MPH [address] [place] [address], [address] [address] 10/22/2025 3:45 PM EST Appointment [facility], Bone Density - [facility] 30 [place] [address] Deneen Wheatley DO 70 [place] [address] 11/10/2025 1:15 PM EST Office Visit [facility] Gastroenterology Clinic 10 [place] [address] Unknown, Unknown, Krysten Oliver, FOOD INSPECTOR [address] [address] [email or web address] documented as of this encounter Visit Diagnoses Not on filedocumented in this encounter Care Teams Service Agent Relationship Specialty Start Date End Date Deneen Wheatley DO 70 [place] [address] PCP - General Family Medicine 07/26/22 documented as of this encounter Additional Source Comments The information contained in this document represents components of the legal health record. It is not the complete legal health record.[facility]
--- OUTSIDE RECORDS SUMMARY | 2025-07-30 12:16 | XMS_ITS | Encounter Summary ---
Author Organization [facility] Address [address] [place] [id number] Phone Care Team Providers Care Business And Marketing Teacher Name Role Phone Blue oRjo MD Primary Care Provider Deneen Wheatley DO Primary Care Provider [phone] Deneen Wheatley DO Primary Care Provider Encounter Details Date Type Department Care Team (Late st Contact Info) Description 02/09/2021 Ancillary Orders Virtual Department [address] [place] [address] Petty Moe PA [address] [address] [email or web address] History of renal calculi Social History Tobacco [...] Medicine [address] [facility] [place] [address] Michael Marlow MD 10 [facility] 2nd [place] [address] [email or web address] 10/09/2025 9:40 AM EST Office Visit [facility] Rheumatology [address] [place] [address] Perla Cohn MD, MPH [address] [facility], [address] [place] [address] 10/22/2025 3:45 PM EST Appointment [facility] [address] [place] [address] Deneen Wheatley DO [address] [place] [address] 11/10/2025 1:15 PM EST Office Visit [facility] [address] [place] [address] Unknown, Unknown, Krysten Oliver, [employer] [address] [address] [email or web address] documented as of this encounter [...] nonobstructing renal calculus, asdescribed above. Petty [facility] Final Result documented in this encounter Visit Diagnoses Diagnosis History of renal calculi Personal history of urinary calculi History of renal calculi Personal history of urinary calculi documented in this encounter Additional Health Concerns Infection Onset Date Last Indicated Resolved Time CoV-Risk Comment:Per note documentation 03/10/2023 03/10/2023 4:32 PM EDT documented as of this encounter Care Teams Business And Marketing Teacher Relationship Specialty Start Date End Date Blue Rojo MD [email or web address] PCP - General 07/20/17 05/03/21 Deneen Wheatley DO PCP - General Family Medicine 05/04/21 07/25/22 Deneen Wheatley DO [address] [place] [id number] [email or web address] PCP - General Family Medicine 07/26/22 documented as of this encounter Additional Source Comments The information contained in this document represents components of the legal health record. It is not the complete legal health record.[facility]
== END 2025-07-30 10:49 | disposition home or self-care (01) ==
PROVIDERS: Visit Provider Internal Medicine
DX: M53.3 Sacrococcygeal disorders, not elsewhere classified (principal)
CPT/HCPCS: 99214

== ENCOUNTER → 2025-07-30 10:04 | Outpatient (BNVA) | payer MEDICARE, SELFPAY | PROVIDERS: Visit Provider Internal Medicine | DX: G90.521 Complex regional pain syndrome I of right lower limb (principal); M53.3 Sacrococcygeal disorders, not elsewhere classified; E11.9 Type 2 diabetes mellitus without complications; N20.0 Calculus of kidney | CPT/HCPCS: 99212 ==